=== PATIENT | female | born 1950 | race Caucasian/White ===

== ENCOUNTER → 2020-05-16 13:49 | Outpatient (BNVA) | payer MEDICARE, MEDICAID, SELFPAY | PROVIDERS: PCP Family Medicine; Visit Provider Nurse Practitioner Family | DX: M79.18 Myalgia, other site (principal); M47.816 Spondylosis without myelopathy or radiculopathy, lumbar region; R10.32 Left lower quadrant pain; G89.29 Other chronic pain | CPT/HCPCS: 99202 ==

== ENCOUNTER 2020-05-25 13:34 | Outpatient (REF) | payer MEDICARE, MEDICAID, SELFPAY ==
--- NOTE | ~2020-05-25 | MR_ITS ---
EXAMINATION: MR LUMBAR SPINE WITHOUT CONTRAST CLINICAL INFORMATION: Urinary incontinence. COMPARISON: None available. TECHNIQUE: MRI of the lumbar spine was obtained using routine sequences without contrast. FINDINGS: Left convex curvature of the lumbar spine. Otherwise, normal anatomic alignment. Advanced degenerative disc disease at L4-L5 and L5-S1. Mild degenerative disc disease at L2-L3 and L3-L4. Associated mixed Modic type discogenic endplate changes including mild Modic type I discogenic edema at L4-L5 and L5-S1. Mild marrow edema within the left greater than right facets from L3-S1 consistent with degenerative stress reaction. No additional suspicious marrow edema. The vertebral body heights are largely maintained. The conus medullaris terminates at the level of L2. The distal spinal cord is normal in appearance. No significant abnormalities of the paraspinal musculature. Limited evaluation of the intra-abdominal structures without significant abnormalities. The abdominal aorta is of normal contour and caliber. AXIAL SPINAL LEVELS: T12-L1: Normal annular contour. There is mild bilateral facet joint arthropathy. There is no neural foraminal stenosis. There is no spinal canal stenosis. L1-L2: Shallow diffuse disc bulge. There is mild to moderate bilateral facet joint arthropathy. There is no neural foraminal stenosis. There is no spinal canal stenosis. L2-L3: Mild diffuse disc bulge with superimposed left foraminal disc protrusion. There is moderate bilateral facet joint arthropathy. There is no neural foraminal stenosis. There is mild narrowing of the subarticular zones with no overt spinal canal stenosis centrally. L3-L4: Mild diffuse disc bulge with superimposed left subarticular/foraminal disc protrusion. There is moderate bilateral facet joint arthropathy. There is mild left and no right neural foraminal stenosis. There is mild narrowing of the subarticular zones with no overt spinal canal stenosis centrally. L4-L5: Moderate diffuse disc bulge eccentric to the left with posterior osseous ridging. There is moderate bilateral facet joint arthropathy. There is moderate bilateral neural foraminal stenosis. There is moderate to severe spinal canal stenosis. L5-S1: Posterior osseous ridging. There is moderate bilateral facet joint arthropathy. There is moderate to severe left and moderate right neural foraminal stenosis. There is stenosis of the left greater than right subarticular zones with no overt spinal canal stenosis centrally. MR/MR lumbar spine wo con IMPRESSION: Moderate multilevel degenerative spondyloarthropathy of the lumbar spine as described in detail above. Most notably, there is moderate to severe spinal canal stenosis at L4-L5. There is stenosis of the left greater than right subarticular zones at L5-S1. Mild narrowings of the subarticular zones at L2-L3 and L3-L4. Moderate neural foraminal stenoses at L4-L5 and L5-S1.
== END 2020-05-25 13:35 | disposition home or self-care (01) ==
LOC: HO.MRI 13:34
PROVIDERS: Visit Provider Anesthesiology
DX: M47.816 Spondylosis without myelopathy or radiculopathy, lumbar region (principal); R32 Unspecified urinary incontinence
CPT/HCPCS: 72148

== ENCOUNTER → 2020-06-06 11:27 | Outpatient (BNVA) | payer MEDICARE, MEDICAID, SELFPAY | PROVIDERS: Visit Provider Nurse Practitioner Family | DX: M79.18 Myalgia, other site (principal); M47.816 Spondylosis without myelopathy or radiculopathy, lumbar region; R10.32 Left lower quadrant pain; G89.29 Other chronic pain | CPT/HCPCS: 99212 ==

== ENCOUNTER → 2020-08-09 09:57 | Outpatient (BNVA) | payer MEDICARE, MEDICAID, SELFPAY | PROVIDERS: PCP Family Medicine; Visit Provider Nurse Practitioner Family | DX: M79.18 Myalgia, other site (principal); M47.816 Spondylosis without myelopathy or radiculopathy, lumbar region; R10.32 Left lower quadrant pain; G89.29 Other chronic pain | CPT/HCPCS: Q3014 ==

== ENCOUNTER 2021-09-02 12:02 | Emergency (ER) | payer MEDICARE, MEDICAID, SELFPAY ==
--- NOTE | ~2021-09-02 | XR_ITS ---
EXAMINATION: XR CHEST CLINICAL INFORMATION: Right-sided chest pain COMPARISON: None TECHNIQUE: AP portable view of the chest was obtained. FINDINGS: No significant abnormality is noted involving the heart, lungs, mediastinum, bony thorax or soft tissues. XR/XR chest 1V IMPRESSION: No acute disease.
[2021-09-02 12:16] VITALS: BP 120/80; BP 123/67; PULSE 74; PULSE 78; RESP 20; TEMP 36.9; O2SAT 100; O2SAT 96; BMI 29.2
--- NOTE | 2021-09-02 12:45 | ED.CHESTPAIN ---
HPI - Chest Pain General Chief Complaint: Chest Pain Stated Complaint: INTERMITTENT CP X'S MONTHS PER EMS Time Seen by Provider: 09/02/21 12:37 Source: patient Mode of arrival: ambulatory Limitations: no limitations History of Present Illness HPI narrative: 71 yold female wth pmh of myofaciscal pain, spondylosis of spine presents to the ED for intermittent chest pain for 8 months. patient states this mornng while at the sink. She had right sided jaw, neck, tinglng and right chest pain while cleaning dishes around 11:00am. patient states symptoms resolve after one minute. patient states no facial droop, slurred speech, loss of vision, paralysis of extremites, dizziness, headache, or syncope. Patient presently is asymptomatic Related Data Home Medications Medication Instructions Recorded Confirmed albuterol sulfate 90 mcg/actuation inhalation 05/16/20 08/09/20 aerosol inhaler fluticasone 500 mcg-salmeterol 50 1 ea inhalation BID 05/16/20 08/09/20 mcg/dose blistr powdr for inhalation linaclotide 290 mcg capsule 290 mcg PO DAILY 05/16/20 08/09/20 omeprazole 20 mg capsule,delayed 20 mg PO DAILY 05/16/20 08/09/20 release Allergies Allergy/AdvReac Type Severity Reaction Status Date / Time latex Allergy Severe Anaphylaxis Verified 08/09/20 09:57 diphenhydramine AdvReac Intermediate rash Verified 08/09/20 09:57 [From Benadryl] levocetirizine [From Xyzal] AdvReac Intermediate depression Verified 08/09/20 09:57 Penicillins AdvReac Intermediate rask Verified 08/09/20 09:57 Sulfa (Sulfonamide AdvReac Intermediate rash Verified 08/09/20 09:57 Antibiotics) Review of Systems Review of Systems: resolved right sided chest pain with neck and right sided jaw pain. Yes all other systems are reviewed and are negative [facility] Past Medical History Medical History (Updated 09/02/21 @ 16:53 by TONNY Person) Arthritis Asthma Diverticulitis Fibromyalgia Social History Social History Smoked in Last 30 Days: No Use of substances other than those prescribed or required for medical reasons: No Advance Directives: No Advance Directives Information Provided: Yes Physical Exam Vital Signs: Vital Signs: Last Vital Signs Temp 98.5 F 09/02/21 12:16 Pulse 79 09/02/21 15:17 Resp 16 09/02/21 15:17 BP 114/60 09/02/21 15:17 Pulse Ox 96 09/02/21 15:17 O2 Del Method 09/02/21 15:17 BMI result Body Mass Index 29.2 Const: General: cooperative, healthy appearing, comfortable, no acute distress, well developed, alert, awake and Physically active Orientation/consciousness: patient oriented x3 HEENT: Head: Yes normal to inspection, Yes No palpable skull fracture present, Yes normocephalic, Yes atraumatic and No abrasion Ears: hearing grossly normal bilaterally, external ears normal, TM's normal bilaterally, TM normal on the right, EAC's normal, mastoids normal and no periauricular adenopathy Mouth: Normal oral and palatal mucosa present, lip normal, tongue normal, Normal salivary glands and ducts present and oropharynx normal Eyes: General: appearance normal, both eyes and all related structures Neck: Neck: Yes normal visual inspection, Yes full ROM, Yes no lymphadenopathy, Yes no meningeal signs, Yes trachea midline, Yes supple, No anterior neck swelling and No tender Chest: Chest palpation & inspection: normal inspection of the chest and normal palpation of entire chest wall Resp: Effort & Inspection: normal respiratory effort and able to speak in complete sentences Auscultation: clear to auscultation bilaterally Cardio: Jugular venous distension: no JVD Heart sounds: S1 normal heart sound present and S2 normal heart sound present GI: Inspection: Yes normal to inspection and No abdominal wall ecchymosis Palpation (GI): Soft to palpation, not firm, nontender, no guarding and not rigid : General: No CVA tenderness and Yes no CVA tenderness Back/Spine/Pelvis: Back: no CVA tenderness, No CVA tenderness and No back tenderness Skin: General skin exam: no rashes or lesions noted and elasticity normal Neuro: Other: Negative facial droop. Negative slurred speech. Negative pronator drift. All extremities equal strength 5+. [id number] and rapid head movement intact. Negative Romberg. NIH score is zero General: patient oriented x3, no meningeal signs and CN's II-XI intact bilaterally Extrem: Other: lower extremities negative for swelling, pitting edema, or calf tenderness General: Yes normal to inspection and Yes full ROM Psych: Appearance: grossly normal, well kempt and not disheveled Course Course Course Narrative: NIH score 0. Patient does not have any neuro deficits. No need for head CT scan to be ordered. Patient presently asymptomatic, but due to patient stating right-sided chest pain will send D-dimer with troponin. EKG ordered. Chest x-ray ordered. Reevaluation(s) Reevaluation #1: 2 troponins negative. EKG negative STEMI. D-dimer negative. Wells score 0. BNP negative for heart failure. Chest x-ray negative for pneumonia. Patient presently symptomatic. Not suspecting any PE, heart attack, pneumonia, aortic dissection, or abdominal aortic aneurysm rupture. Patient informed to call her clinical nursing intern for earlier appointment this week. Patient is safe for discharge. COVID swab negative. no indication for head CT scan. negative for any neuro deficits. Patient asymptomatic. NIH score 0 Time: 16:50 MDM - Chest Pain MDM Narrative Medical decision making narrative: atypical chest pain Lab Data Result diagrams: 09/02/21 14:00 09/02/21 14:00 Labs: Lab Results 09/02/21 09/02/21 09/02/21 Range/Units 14:00 14:00 14:00 WBC 4.2 L (4.8-10.8) X10*3/uL RBC 4.26 (4.20-5.50) X10*6/uL Hgb 12.2 (12.0-16.0) g/dl Hct 37.3 (37.0-47.0) % MCV 87.6 (80.0-98.0) fL MCH 28.6 (27.0-33.0) pg MCHC 32.7 (31.0-35.0) g/dl RDW 13.7 (11.0-16.0) % Plt Count 296 (160-400) X10*3/uL MPV 8.8 L (9.4-12.3) fL Immature Gran % (Auto) 0.2 (0.0-0.4) % Neut % (Auto) 52.8 (45-73) % Lymph % (Auto) 35.7 (20-40) % [place] % (Auto) 9.0 (2-11) % Eos % (Auto) 1.4 (0-4) % Baso % (Auto) 0.9 (0-2) % Lymph # (Auto) 1.5 (1.2-4.9) X10*3/uL [place] # (Auto) 0.4 (0.1-1.2) X10*3/uL Eos # (Auto) 0.1 (0.0-0.4) X10*3/uL Baso # (Auto) 0.0 (0.0-0.2) X10*3/uL Abs Immat Gran (auto) 0.01 (0.00-0.03) X10*3/uL Absolute Neuts (auto) 2.2 (2.0-8.3) x10*3/uL Absolute Nucleated RBC 0.000 (0.0-0.012) X10*3/uL Nucleated RBC % (auto) 0.0 (0.0-0.2) /100WBC PT 10.9 (10.0-13.1) SEC INR 1.0 (0.9-1.1) APTT 34.2 (24.1-38.0) SEC D-Dimer High Sensitivty < 150 NG/ML Sodium 139 (135-145) mmol/L Potassium 4.6 (3.3-5.1) mmol/L Chloride 107 (96-108) mmol/L Carbon Dioxide 25 (22-29) mmol/L Anion Gap 12 (12-20) BUN 12 (9-16) mg/dL Creatinine 0.77 (0.5-1.4) mg/dL Estim Creat Clear Calc 68.3 Estimated GFR > 60 Random Glucose 93 (60-115) mg/dL Calcium 8.7 (8.4-10.2) mg/dL Magnesium 2.1 (1.6-2.6) mg/dL Total Bilirubin 0.3 (0.0-1.0) mg/dL AST 17 (5-31) U/L ALT 17 (0-31) U/L Alkaline Phosphatase 81 (39-117) U/L Troponin I High Sens (<3.5-17.0) ng/L B-Natriuretic Peptide (<100) pg/mL Total Protein 6.9 (6.5-8.0) g/dL Albumin 4.1 (3.5-5.0) g/dL COVID-19 ([facility]) (Negative) COVID-19 Clin Com 09/02/21 09/02/21 09/02/21 Range/Units 14:00 14:23 15:30 WBC (4.8-10.8) X10*3/uL RBC (4.20-5.50) X10*6/uL Hgb (12.0-16.0) g/dl Hct (37.0-47.0) % MCV (80.0-98.0) fL MCH (27.0-33.0) pg MCHC (31.0-35.0) g/dl RDW (11.0-16.0) % Plt Count (160-400) X10*3/uL MPV (9.4-12.3) fL Immature Gran % (Auto) (0.0-0.4) % Neut % (Auto) (45-73) % Lymph % (Auto) (20-40) % [place] % (Auto) (2-11) % Eos % (Auto) (0-4) % Baso % (Auto) (0-2) % Lymph # (Auto) (1.2-4.9) X10*3/uL [place] # (Auto) (0.1-1.2) X10*3/uL Eos # (Auto) (0.0-0.4) X10*3/uL Baso # (Auto) (0.0-0.2) X10*3/uL Abs Immat Gran (auto) (0.00-0.03) X10*3/uL Absolute Neuts (auto) (2.0-8.3) x10*3/uL Absolute Nucleated RBC (0.0-0.012) X10*3/uL Nucleated RBC % (auto) (0.0-0.2) /100WBC PT (10.0-13.1) SEC INR (0.9-1.1) APTT (24.1-38.0) SEC D-Dimer High Sensitivty NG/ML Sodium (135-145) mmol/L Potassium (3.3-5.1) mmol/L Chloride (96-108) mmol/L Carbon Dioxide (22-29) mmol/L Anion Gap (12-20) BUN (9-16) mg/dL Creatinine (0.5-1.4) mg/dL Estim Creat Clear Calc Estimated GFR Random Glucose (60-115) mg/dL Calcium (8.4-10.2) mg/dL Magnesium (1.6-2.6) mg/dL Total Bilirubin (0.0-1.0) mg/dL AST (5-31) U/L ALT (0-31) U/L Alkaline Phosphatase (39-117) U/L Troponin I High Sens < 3.5 < 3.5 (<3.5-17.0) ng/L B-Natriuretic Peptide 17 (<100) pg/mL Total Protein (6.5-8.0) g/dL Albumin (3.5-5.0) g/dL COVID-19 ([facility]) Negative (Negative) COVID-19 Clin Com See Note ECG Data ECG #1: Interpretation: normal sinus rhythm. Ventricular rate 72. Pr interval 144. Caris 88. QTC 435. Negative STEMI Discharge Plan Discharge Clinical Impression: Chest pain, atypical Patient Disposition: Home, Self-Care Instructions: Chest Pain (ED) Additional Instructions: return to the ED immediately worsening chest pain, facial droop, slurred speech, dizziness, headache, loss of vision, nausea, vomiting, paralysis of extremities, chest pain on inspiration, leg swelling, calf pain, coughing up blood, or any other concerning symptoms. Please contact your clinical nursing intern and PCP for earlier appointment. You will be given copy of your labs and EKG. Prescriptions: No Action Linzess 290 mcg capsule 290 mcg PO DAILY fluticasone propion-salmeterol 500-50 mcg/dose blister with device 1 ea inhalation BID albuterol sulfate 90 mcg/actuation HFA aerosol inhaler inhalation omeprazole 20 mg capsule,delayed release(DR/EC) 20 mg PO DAILY Interventions: ED Discharge Assessment Last Done: 09/02/21 17:21 Discharge Date/Time: 09/02/21 17:22 Print Language: [place] Citizen
--- NOTE | 2021-09-02 13:00 | ECG_ITS ---
Test Reason : RESOLVED RT SIDED CP Blood Pressure : / mmHG Vent. Rate : 066 BPM Atrial Rate : 066 BPM P-R Int : 184 ms QRS Dur : 080 ms QT Int : 392 ms P-R-T Axes : -30 013 034 degrees QTc Int : 410 ms Unusual P axis, possible ectopic atrial rhythm Abnormal ECG No previous ECGs available Referred By: Moy Allen Electronically Signed By:RODGER SCOTT
[2021-09-02 14:05] LABS: MANUAL DIFF FLAG NO
[2021-09-02 14:07] LABS: Basophils Percent Auto 0.9 % (0-2); Eosinophils Absolute Auto 0.1 X10*3/uL (0.0-0.4); Eosinophils Percent Auto 1.4 % (0-4); Hematocrit 37.3 % (37.0-47.0); Hemoglobin 12.2 g/dl (12.0-16.0); Imm Gran Abs Auto 0.01 X10*3/uL (0.00-0.03); Imm Gran Pct Auto 0.2 % (0.0-0.4); Lymphocytes Absolute Auto 1.5 X10*3/uL (1.2-4.9); Lymphocytes Percent Auto 35.7 % (20-40); Mean Corpuscular HGB Conc 32.7 g/dl (31.0-35.0); Mean Corpuscular Hemoglobin 28.6 pg (27.0-33.0); Mean Corpuscular Volume 87.6 fL (80.0-98.0); Mean Platelet Volume 8.8 fL (9.4-12.3); Monocytes Absolute Auto 0.4 X10*3/uL (0.1-1.2); Neutrophils Absolute Auto 2.2 x10*3/uL (2.0-8.3); Neutrophils Percent Auto 52.8 % (45-73); Platelet Count 296 X10*3/uL (160-400); Red Blood Count 4.26 X10*6/uL (4.20-5.50); Red Cell Distribution Width 13.7 % (11.0-16.0); White Blood Count 4.2 X10*3/uL (4.8-10.8)
[2021-09-02 14:12] LABS: Prothrombin Time 10.9 SEC (10.0-13.1)
[2021-09-02 14:15] LABS: Partial Thromboplastin Time 34.2 SEC (24.1-38.0)
[2021-09-02 14:16] LABS: D Dimer High Sensitivity < 150 NG/ML
[2021-09-02 14:24] LABS: Alanine Aminotransferase 17 U/L (0-31); Albumin Level 4.1 g/dL (3.5-5.0); Alkaline Phosphatase 81 U/L (39-117); Anion Gap 12 (12-20); Aspartate Amino Transferase 17 U/L (5-31); Bilirubin Total 0.3 mg/dL (0.0-1.0); Blood Urea Nitrogen 12 mg/dL (9-16); Calcium 8.7 mg/dL (8.4-10.2); Carbon Dioxide 25 mmol/L (22-29); Chloride 107 mmol/L (96-108); Creatinine Clr Calc Pharmacy 68.3; Estimated Glomerular Filt Rate > 60; Glucose Random 93 mg/dL (60-115); Magnesium 2.1 mg/dL (1.6-2.6); Potassium 4.6 mmol/L (3.3-5.1); Sodium 139 mmol/L (135-145); Total Protein 6.9 g/dL (6.5-8.0)
[2021-09-02 14:27] LABS: Troponin-I High Sensitivity < 3.5 ng/L (<3.5-17.0)
[2021-09-02 14:54] LABS: COVID-19 Test Negative (Negative); IDNOW Serial# 16C4AD1C
[2021-09-02 14:54] LABS: B Type Natriuretic Peptide 17 pg/mL (<100)
[2021-09-02 15:17] VITALS: BP 114/60; PULSE 79; RESP 16; O2SAT 96
[2021-09-02 16:11] LABS: Troponin-I High Sensitivity < 3.5 ng/L (<3.5-17.0)
== END 2021-09-02 17:22 | disposition home or self-care (01) ==
PROVIDERS: Physician Assistant; Emergency Provider Emergency Medicine Emergency Medical Services; PCP Family Medicine
DX: R07.89 Other chest pain (principal); M54.2 Cervicalgia; R51.9 Headache, unspecified; Z79.899 Other long term (current) drug therapy; Z20.822 Contact with and (suspected) exposure to COVID-19
CPT/HCPCS: 36415; 71045; 80053; 83735; 83880; 84484; 85025; 85379; 85610; 85730; 87635; 93005; 99283; 99284

== ENCOUNTER 2022-06-08 13:59 | Emergency (ER) | payer MEDICARE, MEDICAID, SELFPAY ==
--- NOTE | ~2022-06-08 | CT_ITS ---
EXAMINATION: CT ABDOMEN AND PELVIS WITHOUT CONTRAST CLINICAL INFORMATION: Abdominal pain. COMPARISON: None available. TECHNIQUE: Multidetector volumetric imaging was performed from the superior aspect of the liver through the pubic symphysis. Sagittal and coronal reformatted images were obtained on the technologist's workstation. This CT examination was performed using dose optimization techniques as appropriate, variously including the following: *Automated exposure control *Adjustment of mA and/or kV according to patient size (this includes techniques or standardized protocols for targeted exams where dose is matched to indication/reason for exam; i.e. extremities or head) *Use of iterative reconstruction technique DLP: 544.00 mGy-cm FINDINGS: LUNG BASES: Subsegmental atelectasis in the lingula and right middle lobe. Lung bases are otherwise unremarkable. No pleural or pericardial effusions. LIVER, GALLBLADDER, AND BILIARY TREE: The liver is normal in size, shape, and attenuation. No focal hepatic lesion or biliary ductal dilatation is present. The gallbladder is unremarkable with no evidence of radiopaque gallstones, gallbladder wall thickening, or obvious pericholecystic inflammatory changes. PANCREAS: Mild fatty atrophy of the pancreas. No focal pancreatic mass is noted within the limits of noncontrast study. No peripancreatic stranding or fluid. SPLEEN: Unremarkable. ADRENAL GLANDS: Unremarkable. KIDNEYS AND URETERS: The kidneys are normal in size, shape, and attenuation. No hydronephrosis, hydroureter, or calculi seen. No perinephric stranding. BLADDER: Underdistended and therefore not optimally evaluated. No radiopaque calculi are noted. GASTROINTESTINAL TRACT: Underdistended; however, grossly unremarkable. No abnormal small bowel dilatation is noted. An appendix is not seen however there are no inflammatory changes in the expected location of the appendix. Diverticulosis of the descending and sigmoid colon. Mild stranding is noted around the proximal and mid descending colon. Prominence of the vasa recta is noted here. Large stool burden is noted in the ascending, transverse and descending colon. PERITONEAL CAVITY: No evidence of free intraperitoneal air or fluid. ABDOMINAL WALL: No significant hernia is appreciated. LYMPH NODES: No abnormal lymph nodes are demonstrated in the axilla. VASCULAR: Scattered calcific atherosclerosis of the aortoiliac vessels. PELVIC VISCERA: Unremarkable CT appearance of the uterus and ovaries/adnexa. OSSEOUS STRUCTURES: No acute or suspicious osseous lesions. Severe narrowing of the disc spaces is noted at L5-S1 and L4-L5 with marginal endplate osteophytes. There is moderate bilateral neural foraminal stenosis at L5-S1 and L4-L5. [id number] osteoarthritic changes at the left hip. CT/CT abdomen pelvis wo IV con IMPRESSION: 1. Diverticulosis of the descending and sigmoid colon. Mild stranding is noted around the proximal and mid descending colon with prominence of the vas recta. Findings most likely suggestive of acute diverticulitis. No evidence of focal diverticular perforation or abscess collection. Focal colitis is in differential; however, less favored. No obvious mass lesion is noted in this region. No evidence of free intraperitoneal air or fluid. Consider colonoscopic correlation following resolution of acute episode to exclude neoplastic process in the region. 2. Large stool burden in the ascending, transverse and descending colon. 3. No evidence of radiopaque urinary tract calculi, hydroureteronephrosis or perinephric stranding. Fleischner guidelines were followed.
--- NOTE | 2022-06-08 14:36 | ED_ITS ---
HPI - General Adult General Chief complaint: GI Bleed <TONNY Foley - Last Filed: 06/08/22 14:38> Stated complaint: abd pain <TONNY Foley - Last Filed: 06/08/22 14:38> Time Seen by Provider: 06/08/22 16:08 <TONNY Foley - Last Filed: 06/08/22 14:38> Source: patient and RN notes reviewed <Grant Velasquez - Last Filed: 06/08/22 19:01> Mode of arrival: ambulatory <Grant Velasquez - Last Filed: 06/08/22 19:01> Limitations: no limitations <Grant Vleasquez - Last Filed: 06/08/22 19:01> History of Present Illness HPI narrative: 71-year-old female with past medical history significant for spondylosis, diverticulitis presents for evaluation of abdominal pain Patient reports that she has left lower abdominal cramping and bloating for the last 2 weeks. She states that 2 weeks ago she had persistent diarrhea lasted 2 days and she has felt constipated ever since then She reports her pain is 7/10 She states it does not feel consistent to her previous bouts of diverticulitis Denies any urinary complaints Denies any fevers but endorses chills. Patient also states that she has had 5 different courses of antibiotics since March, 3 months ago. She reports that she was given clindamycin and azithromycin twice each for dental infections She also reports having had a course of Macrobid for UTI in April The patient reports that she has a GI follow-up at [facility] in 2 days. She also dropped off an outpatient stool sample but does not yet have the results No other complaints or concerns at time <Grant Velasquez - Last Filed: 06/08/22 19:01> Related Data Home medications: Home Medications Medication Instructions Recorded Confirmed albuterol sulfate 90 mcg/actuation inhalation 05/16/20 08/09/20 aerosol inhaler fluticasone 500 mcg-salmeterol 50 1 ea inhalation BID 05/16/20 08/09/20 mcg/dose blistr powdr for inhalation linaclotide 290 mcg capsule 290 mcg PO DAILY 05/16/20 08/09/20 omeprazole 20 mg capsule,delayed 20 mg PO DAILY 05/16/20 08/09/20 release Previous Rx's Medication Instructions Recorded vancomycin 125 mg capsule 125 mg PO QID #40 caps 06/08/22 <TONNY Foley - Last Filed: 06/08/22 14:38> Allergies/adverse reactions: Allergies Allergy/AdvReac Type Severity Reaction Status Date / Time latex Allergy Severe Anaphylaxis Verified 06/08/22 14:36 diphenhydramine AdvReac Intermediate rash Verified 06/08/22 14:36 [From Benadryl] levocetirizine [From Xyzal] AdvReac Intermediate depression Verified 06/08/22 14:36 Penicillins AdvReac Intermediate rask Verified 06/08/22 14:36 Sulfa (Sulfonamide AdvReac Intermediate rash Verified 06/08/22 14:36 Antibiotics) <TONNY Foley - Last Filed: 06/08/22 14:38> Review of Systems Constitutional: Constitutional: Reports as per HPI, Denies chills, Denies fatigue, Denies fever(s) and Denies headache(s) <Grant Velasquez - Last Filed: 06/08/22 19:01> ENT: Denies headache(s) <Grant Velasquez - Last Filed: 06/08/22 19:01> Cardiovascular: Cardiovascular: Denies chest pain and Denies dyspnea <Grant Velasquez - Last Filed: 06/08/22 19:01> Respiratory: Respiratory: Denies cough and Denies dyspnea <Grant Velasquez - Last Filed: 06/08/22 19:01> Gastrointestinal: Gastrointestinal: Reports abdominal pain, Reports hematoc hezia, Reports constipation, Reports diarrhea, Reports nausea, Denies vomiting and Denies hematemesis <Grant Velasquez - Last Filed: 06/08/22 19:01> Genitourinary: Genitourinary: Denies dysuria <Grant Velasquez - Last Filed: 06/08/22 19:01> Neurologic: Denies headache(s) and Denies focal weakness <Grant Velasquez - Last Filed: 06/08/22 19:01> Endocrine: Endocrine: Denies fatigue <Grant Velasquez - Last Filed: 06/08/22 19:01> [facility] Past Medical History Medical History: Medical History (Updated 06/08/22 @ 19:00 by Grant Velasquez) Arthritis Asthma Diverticulitis Fibromyalgia <TONNY Foley - Last Filed: 06/08/22 14:38> Social History Social History: Social History Alcohol intake: never Smoked in Last 30 Days: No Advance Directives: No Advance Directives Information Provided: No <TONNY Foley - Last Filed: 06/08/22 14:38> Physical Exam ED Vital Signs: Vital Signs - 24 hr 06/08/22 14:37 06/08/22 15:20 Temperature 98.3 F 98.2 F Pulse Rate 85 80 Respiratory Rate 18 20 Blood Pressure 135/75 122/43 L Pulse Oximetry 97 98 Oxygen Delivery Method Room Air Room Air BMI result Body Mass Index 29.2 <TONNY Foley - Last Filed: 06/08/22 14:38> Vital Signs - 24 hr 06/08/22 14:37 06/08/22 15:20 Temperature 98.3 F 98.2 F Pulse Rate 85 80 Respiratory Rate 18 20 Blood Pressure 135/75 122/43 L Pulse Oximetry 97 98 Oxygen Delivery Method Room Air Room Air BMI result Body Mass Index 29.2 <Grant Velasquez - Last Filed: 06/08/22 19:01> Const General: healthy appearing, comfortable, no acute distress, alert and awake <Grant Velasquez - Last Filed: 06/08/22 19:01> Nutritional Appearance: well nourished <Grant Velasquez - Last Filed: 06/08/22 19:01> Orientation/consciousness: patient oriented x3 <Grant Velasquez - Last Filed: 06/08/22 19:01> HENMT Head: Yes normocephalic and Yes atraumatic <Grant Velasquez - Last Filed: 19:01> Throat: Yes posterior oropharynx normal <Grant Velasquez - Last Filed: 06/08/22 19:01> Eyes Eyelids: Yes eyelids normal <Grant Velasquez - Last Filed: 06/08/22 19:01> Conjunctivae: conjunctivae normal <Grant Velasquez - Last Filed: 06/08/22 19:01> Sclerae: sclerae normal <Grant DavisNavdeep - Last Filed: 06/08/22 19:01> Corneas: corneas normal <Grant OBig Horn - Last Filed: 06/08/22 19:01> Pupils: Equal, round and reactive pupils present <Grant ONavdeep - Last Filed: 06/08/22 19:01> EOM: EOMs intact bilaterally <Thumb ReadingBig Horn - Last Filed: 06/08/22 19:01> Neck Neck: Yes full ROM <Grant ONavdeep - Last Filed: 06/08/22 19:01> Resp Effort & Inspection: normal respiratory effort, able to speak in complete sentences, no audible wheezes and not labored <Grant O Last Filed: 06/08/22 19:01> Auscultation: clear to auscultation bilaterally <Grant Navdeep - Last Filed: 06/08/22 19:01> Cardio Rate: regular rate <Grant ONavdeep - Last Filed: 06/08/22 19:01> Rhythm: regular rhythm <Grant [place] Horn - Last Filed: 06/08/22 19:01> GI Inspection: No abdominal wall ecchymosis, Yes distended, No incision, Yes obesity and No scar <Grant ONavdeep - Last Filed: 06/08/22 19:01> Palpation (GI): Soft to palpation, not firm, Tenderness to palpation present (GI) in the LLQ and suprapubicly; Andujar's sign negative, no guarding and not rigid <Grant OBig Horn - Last Filed: 06/08/22 19:01> Auscultation: normoactive bowel sounds <Grant DemarcoBig Horn - Last Filed: 06/08/22 19:01> Skin General skin exam: no rashes or lesions noted and elasticity normal <Grant dinCloudBig Horn - Last Filed: 06/08/22 19:01> Neuro General: patient oriented x3 <Grant OBig Horn - Last Filed: 06/08/22 19:01> Cranial nerves: Yes CN's II-XII intact bilaterally, Yes Equal, round and reactive pupils present and Yes Bilaterally intact EOM present <Thumb ReadingJasiel - Last Filed: 06/08/22 19:01> Cognition (Neuro): normal cognition <Grant Velasquez - Last Filed: 06/08/22 19:01> Extrem Other: Moving all extremities well without any obvious deformities <Grant Velasquez - Last Filed: 06/08/22 19:01> Course Course Course Narrative: RME performed by Jess Oropeza PA-C. Patient is a 71 year old assigned female at presenting to the emergency department with abdominal pain. Labs, imaging, and swab ordered. Patient placed back in the waiting room pending room availability and results. <TONNY Foley - Last Filed: 06/08/22 14:38> Reevaluation(s) Reevaluation #1: Patient tested positive for C diff. I discussed this with the patient, she is nontoxic-appearing, non full minute C diff. We will treat with vancomycin 125 mg p.o. q.i.d.. The patient's CT scan also showed constipation, I cautioned the patient against using stronger laxatives while she is being treated for C diff. she may use stool softeners and fiber supplementation, but once her infection is cleared her bowel habits return to normal. <Grant Velasquez - Last Filed: 06/08/22 19:01> Time: 18:58 <Grant Velasquez - Last Filed: 06/08/22 19:01> Medications Administered Discontinued Medications Generic Name Dose Route Start Last Admin Trade Name Freq PRN Reason Stop Dose Admin Acetaminophen 975 mg 06/08/22 16:39 06/08/22 16:48 Acetaminophen 325 Mg Tablet PO 06/08/22 16:40 975 mg ONCE ONE Administration <TONNY Foley - Last Filed: 06/08/22 14:38> Medications Administered Discontinued Medications Generic Name Dose Route Start Last Admin Trade Name Freq PRN Reason Stop Dose Admin Acetaminophen 975 mg 06/08/22 16:39 06/08/22 16:48 Acetaminophen 325 Mg Tablet PO 06/08/22 16:40 975 mg ONCE ONE Administration <Grant Velasquez - Last Filed: 06/08/22 19:01> Medical Decision Making Medical Decision Making MDM Narrative: 71-year-old female with history of diverticulitis presents for evaluation of abdominal pain, diarrhea and then subsequent constipation. She has had numerous antibiotics in the last few months mobile definitely send AC diff sample and a GI panel. CT scan pending. <Grant Velasquez - Last Filed: 06/08/22 19:01> Differential Diagnosis Colitis Diverticulitis Gastroenteritis C diff Small-bowel obstruction <Grant Velasquez - Last Filed: 06/08/22 19:01> Lab Data MDM Lab Attestation statement: I reviewed the patient's lab results. <Grant Velasquez - Last Filed: 06/08/22 19:01> Mild anemia, no leukocytosis, no electrolyte abnormalities <Grant Velasquez - Last Filed: 06/08/22 19:01> Result Diagrams: 06/08/22 14:56 06/08/22 14:56 <TONNY Foley - Last Filed: 06/08/22 14:38> Labs: Lab Results 06/08/22 06/08/22 06/08/22 Range/Units 14:56 14:56 14:56 WBC 10.1 (4.8-10.8) X10*3/uL RBC 4.10 L (4.20-5.50) X10*6/uL Hgb 11.5 L (12.0-16.0) g/dl Hct 35.2 L (37.0-47.0) % MCV 85.9 (80.0-98.0) fL MCH 28.0 (27.0-33.0) pg MCHC 32.7 (31.0-35.0) g/dl RDW 13.3 (11.0-16.0) % Plt Count 346 (160-400) X10*3/uL MPV 8.5 L (9.4-12.3) fL Immature Gran % (Auto) 0.2 (0.0-0.4) % Neut % (Auto) 70.2 (45-73) % Lymph % (Auto) 21.4 (20-40) % [place] % (Auto) 6.4 (2-11) % Eos % (Auto) 1.4 (0-4) % Baso % (Auto) 0.4 (0-2) % Lymph # (Auto) 2.2 (1.2-4.9) X10*3/uL [place] # (Auto) 0.7 (0.1-1.2) X10*3/uL Eos # (Auto) 0.1 (0.0-0.4) X10*3/uL Baso # (Auto) 0.0 (0.0-0.2) X10*3/uL Abs Immat Gran (auto) 0.02 (0.00-0.03) X10*3/uL Absolute Neuts (auto) 7.1 (2.0-8.3) x10*3/uL Absolute Nucleated RBC 0.000 (0.0-0.012) X10*3/uL Nucleated RBC % (auto) 0.0 (0.0-0.2) /100WBC Sodium 140 (135-145) mmol/L Potassium 4.3 (3.3-5.1) mmol/L Chloride 106 (96-108) mmol/L Carbon Dioxide 28 (22-29) mmol/L Anion Gap 10 L (12-20) BUN 11 (9-16) mg/dL Creatinine 0.77 (0.5-1.4) mg/dL Estim Creat Clear Calc 68.3 Estimated GFR > 60 Random Glucose 94 (60-115) mg/dL Calcium 8.8 (8.4-10.2) mg/dL Magnesium 2.1 (1.6-2.6) mg/dL Total Bilirubin 0.6 (0.0-1.0) mg/dL AST 15 (5-31) U/L ALT 12 (0-31) U/L Alkaline Phosphatase 87 (39-117) U/L Total Protein 6.7 (6.5-8.0) g/dL Albumin 4.0 (3.5-5.0) g/dL Urine Color Urine Appearance Urine pH (5.0-9.0) Ur Specific [place] (1.005-1.025) Urine Protein (Neg-Trace) mg/dL Urine Glucose (UA) (Negative) mg/dL Urine Ketones (Negative) mg/dL Urine Blood (Negative) Urine Nitrite (Negative) Ur Leukocyte Esterase (Negative) C. difficile Tox B Gene (Negative) COVID-19 ([facility]) Negative (Negative) COVID-19 Clin Com See Note 06/08/22 06/08/22 Range/Units 17:27 17:27 WBC (4.8-10.8) X10*3/uL RBC (4.20-5.50) X10*6/uL Hgb (12.0-16.0) g/dl Hct (37.0-47.0) % MCV (80.0-98.0) fL MCH (27.0-33.0) pg MCHC (31.0-35.0) g/dl RDW (11.0-16.0) % Plt Count (160-400) X10*3/uL MPV (9.4-12.3) fL Immature Gran % (Auto) (0.0-0.4) % Neut % (Auto) (45-73) % Lymph % (Auto) (20-40) % [place] % (Auto) (2-11) % Eos % (Auto) (0-4) % Baso % (Auto) (0-2) % Lymph # (Auto) (1.2-4.9) X10*3/uL [place] # (Auto) (0.1-1.2) X10*3/uL Eos # (Auto) (0.0-0.4) X10*3/uL Baso # (Auto) (0.0-0.2) X10*3/uL Abs Immat Gran (auto) (0.00-0.03) X10*3/uL Absolute Neuts (auto) (2.0-8.3) x10*3/uL Absolute Nucleated RBC (0.0-0.012) X10*3/uL Nucleated RBC % (auto) (0.0-0.2) /100WBC Sodium (135-145) mmol/L Potassium (3.3-5.1) mmol/L Chloride (96-108) mmol/L Carbon Dioxide (22-29) mmol/L Anion Gap (12-20) BUN (9-16) mg/dL Creatinine (0.5-1.4) mg/dL Estim Creat Clear Calc Estimated GFR Random Glucose (60-115) mg/dL Calcium (8.4-10.2) mg/dL Magnesium (1.6-2.6) mg/dL Total Bilirubin (0.0-1.0) mg/dL AST (5-31) U/L ALT (0-31) U/L Alkaline Phosphatase (39-117) U/L Total Protein (6.5-8.0) g/dL Albumin (3.5-5.0) g/dL Urine Color Yellow Urine Appearance Clear Urine pH 5.5 (5.0-9.0) Ur Specific [place] <= 1.005 (1.005-1.025) Urine Protein Negative (Neg-Trace) mg/dL Urine Glucose (UA) Negative (Negative) mg/dL Urine Ketones Negative (Negative) mg/dL Urine Blood Negative (Negative) Urine Nitrite Negative (Negative) Ur Leukocyte Esterase Negative (Negative) C. difficile Tox B Gene POSITIVE A* (Negative) COVID-19 ([facility]) (Negative) COVID-19 Clin Com <TONNY Foley - Last Filed: 06/08/22 14:38> Lab Results 06/08/22 06/08/22 06/08/22 Range/Units 14:56 14:56 14:56 WBC 10.1 (4.8-10.8) X10*3/uL RBC 4.10 L (4.20-5.50) X10*6/uL Hgb 11.5 L (12.0-16.0) g/dl Hct 35.2 L (37.0-47.0) % MCV 85.9 (80.0-98.0) fL MCH 28.0 (27.0-33.0) pg MCHC 32.7 (31.0-35.0) g/dl RDW 13.3 (11.0-16.0) % Plt Count 346 (160-400) X10*3/uL MPV 8.5 L (9.4-12.3) fL Immature Gran % (Auto) 0.2 (0.0-0.4) % Neut % (Auto) 70.2 (45-73) % Lymph % (Auto) 21.4 (20-40) % [place] % (Auto) 6.4 (2-11) % Eos % (Auto) 1.4 (0-4) % Baso % (Auto) 0.4 (0-2) % Lymph # (Auto) 2.2 (1.2-4.9) X10*3/uL [place] # (Auto) 0.7 (0.1-1.2) X10*3/uL Eos # (Auto) 0.1 (0.0-0.4) X10*3/uL Baso # (Auto) 0.0 (0.0-0.2) X10*3/uL Abs Immat Gran (auto) 0.02 (0.00-0.03) X10*3/uL Absolute Neuts (auto) 7.1 (2.0-8.3) x10*3/uL Absolute Nucleated RBC 0.000 (0.0-0.012) X10*3/uL Nucleated RBC % (auto) 0.0 (0.0-0.2) /100WBC Sodium 140 (135-145) mmol/L Potassium 4.3 (3.3-5.1) mmol/L Chloride 106 (96-108) mmol/L Carbon Dioxide 28 (22-29) mmol/L Anion Gap 10 L (12-20) BUN 11 (9-16) mg/dL Creatinine 0.77 (0.5-1.4) mg/dL Estim Creat Clear Calc 68.3 Estimated GFR > 60 Random Glucose 94 (60-115) mg/dL Calcium 8.8 (8.4-10.2) mg/dL Magnesium 2.1 (1.6-2.6) mg/dL Total Bilirubin 0.6 (0.0-1.0) mg/dL AST 15 (5-31) U/L ALT 12 (0-31) U/L Alkaline Phosphatase 87 (39-117) U/L Total Protein 6.7 (6.5-8.0) g/dL Albumin 4.0 (3.5-5.0) g/dL Urine Color Urine Appearance Urine pH (5.0-9.0) Ur Specific [place] (1.005-1.025) Urine Protein (Neg-Trace) mg/dL Urine Glucose (UA) (Negative) mg/dL Urine Ketones (Negative) mg/dL Urine Blood (Negative) Urine Nitrite (Negative) Ur Leukocyte Esterase (Negative) C. difficile Tox B Gene (Negative) COVID-19 ([facility]) Negative (Negative) COVID-19 Clin Com See Note 06/08/22 06/08/22 Range/Units 17:27 17:27 WBC (4.8-10.8) X10*3/uL RBC (4.20-5.50) X10*6/uL Hgb (12.0-16.0) g/dl Hct (37.0-47.0) % MCV (80.0-98.0) fL MCH (27.0-33.0) pg MCHC (31.0-35.0) g/dl RDW (11.0-16.0) % Plt Count (160-400) X10*3/uL MPV (9.4-12.3) fL Immature Gran % (Auto) (0.0-0.4) % Neut % (Auto) (45-73) % Lymph % (Auto) (20-40) % [place] % (Auto) (2-11) % Eos % (Auto) (0-4) % Baso % (Auto) (0-2) % Lymph # (Auto) (1.2-4.9) X10*3/uL [place] # (Auto) (0.1-1.2) X10*3/uL Eos # (Auto) (0.0-0.4) X10*3/uL Baso # (Auto) (0.0-0.2) X10*3/uL Abs Immat Gran (auto) (0.00-0.03) X10*3/uL Absolute Neuts (auto) (2.0-8.3) x10*3/uL Absolute Nucleated RBC (0.0-0.012) X10*3/uL Nucleated RBC % (auto) (0.0-0.2) /100WBC Sodium (135-145) mmol/L Potassium (3.3-5.1) mmol/L Chloride (96-108) mmol/L Carbon Dioxide (22-29) mmol/L Anion Gap (12-20) BUN (9-16) mg/dL Creatinine (0.5-1.4) mg/dL Estim Creat Clear Calc Estimated GFR Random Glucose (60-115) mg/dL Calcium (8.4-10.2) mg/dL Magnesium (1.6-2.6) mg/dL Total Bilirubin (0.0-1.0) mg/dL AST (5-31) U/L ALT (0-31) U/L Alkaline Phosphatase (39-117) U/L Total Protein (6.5-8.0) g/dL Albumin (3.5-5.0) g/dL Urine Color Yellow Urine Appearance Clear Urine pH 5.5 (5.0-9.0) Ur Specific [place] <= 1.005 (1.005-1.025) Urine Protein Negative (Neg-Trace) mg/dL Urine Glucose (UA) Negative (Negative) mg/dL Urine Ketones Negative (Negative) mg/dL Urine Blood Negative (Negative) Urine Nitrite Negative (Negative) Ur Leukocyte Esterase Negative (Negative) C. difficile Tox B Gene POSITIVE A* (Negative) COVID-19 ([facility]) (Negative) COVID-19 Clin Com <Grant Velasquez - Last Filed: 06/08/22 19:01> Discharge Plan Discharge Clinical Impression: C. difficile colitis <TONNY Foley - Last Filed: 06/08/22 14:38> Patient Disposition: Home, Self-Care <TONNY Foley - Last Filed: 06/08/22 14:38> Instructions: C. Diff (Clostridioides Difficile) Infection (ED) <TONNY Foley - Last Filed: 06/08/22 14:38> Additional Instructions: You tested positive for C diff colitis. This is very contagious. Washing hands frequently after using the bathroom Take vancomycin 125 mg every 6 hours for 10 days Return for new or worsening symptoms You may use stool softeners, but I would be very careful about using laxatives while you have this infection Follow-up with her primary doctor <TONNY Foley - Last Filed: 06/08/22 14:38> Prescriptions: New vancomycin 125 mg capsule 125 mg PO QID Qty: 40 0RF No Action Linzess 290 mcg capsule 290 mcg PO DAILY fluticasone propion-salmeterol 500-50 mcg/dose blister with device 1 ea inhalation BID albuterol sulfate 90 mcg/actuation HFA aerosol inhaler inhalation omeprazole 20 mg capsule,delayed release(DR/EC) 20 mg PO DAILY <TONNY Foley - Last Filed: 06/08/22 14:38>
[2022-06-08 14:37] VITALS: BP 135/75; PULSE 85; RESP 18; TEMP 36.8; O2SAT 97; BMI 29.2
[2022-06-08 15:02] LABS: MANUAL DIFF FLAG NO
[2022-06-08 15:03] LABS: Basophils Percent Auto 0.4 % (0-2); Eosinophils Absolute Auto 0.1 X10*3/uL (0.0-0.4); Eosinophils Percent Auto 1.4 % (0-4); Hematocrit 35.2 % (37.0-47.0); Hemoglobin 11.5 g/dl (12.0-16.0); Imm Gran Abs Auto 0.02 X10*3/uL (0.00-0.03); Imm Gran Pct Auto 0.2 % (0.0-0.4); Lymphocytes Absolute Auto 2.2 X10*3/uL (1.2-4.9); Lymphocytes Percent Auto 21.4 % (20-40); Mean Corpuscular HGB Conc 32.7 g/dl (31.0-35.0); Mean Corpuscular Volume 85.9 fL (80.0-98.0); Mean Platelet Volume 8.5 fL (9.4-12.3); Monocytes Absolute Auto 0.7 X10*3/uL (0.1-1.2); Monocytes Percent Auto 6.4 % (2-11); Neutrophils Absolute Auto 7.1 x10*3/uL (2.0-8.3); Neutrophils Percent Auto 70.2 % (45-73); Platelet Count 346 X10*3/uL (160-400); Red Cell Distribution Width 13.3 % (11.0-16.0); White Blood Count 10.1 X10*3/uL (4.8-10.8)
[2022-06-08 15:16] LABS: COVID-19 Test Negative (Negative); IDNOW Serial# BCCEAD1C
[2022-06-08 15:20] VITALS: BP 122/43; PULSE 80; RESP 20; TEMP 36.8; O2SAT 98
--- NOTE | 2022-06-08 15:21 | PC.NURSE ---
Pt a/ox4. Comes in with complaints of abdomen pain, nausea, x2 weeks, off and on chills at home. Kye cruz reported to pt that she tested + for blood in her stool last week. Pt just finished mulitple courses of antx, having bright red blood when whipping from diarrhea 6 days ago.
[2022-06-08 15:23] LABS: Alanine Aminotransferase 12 U/L (0-31); Alkaline Phosphatase 87 U/L (39-117); Anion Gap 10 (12-20); Aspartate Amino Transferase 15 U/L (5-31); Bilirubin Total 0.6 mg/dL (0.0-1.0); Blood Urea Nitrogen 11 mg/dL (9-16); Calcium 8.8 mg/dL (8.4-10.2); Carbon Dioxide 28 mmol/L (22-29); Chloride 106 mmol/L (96-108); Creatinine Clr Calc Pharmacy 68.3; Estimated Glomerular Filt Rate > 60; Glucose Random 94 mg/dL (60-115); Magnesium 2.1 mg/dL (1.6-2.6); Potassium 4.3 mmol/L (3.3-5.1); Sodium 140 mmol/L (135-145); Total Protein 6.7 g/dL (6.5-8.0)
[2022-06-08] MEDS: Acetaminophen 325 MG TABLET 975 MG PO (16:48)
[2022-06-08 17:48] LABS: Appearance Urine Clear; Color Urine Yellow; Glucose Urine UA Negative (Negative); Leukocyte Esterase Urine Negative (Negative); Nitrite Urine Negative (Negative); PH 5.5 (5.0-9.0); Specific Gravity - Urine <= 1.005 (1.005-1.025); Urine Blood Negative (Negative); Urine Ketones Negative (Negative); Urine Protein Negative (Neg-Trace)
[2022-06-08 18:40] LABS: CDiff Gene PCR POSITIVE (Negative)
[2022-06-08 19:05] VITALS: BP 125/60; PULSE 72; RESP 17; TEMP 36.6; O2SAT 96
[2022-06-08 19:12] LABS: CDiff Toxin Positive (Negative)
[2022-06-08 19:13] LABS: CDIFF Internal ctrl Dots and bkg OK (V)
[2022-06-08] MEDS: vancomycin HCL 125 MG CAPSULE PO (19:19)
[2022-06-09 09:26] LABS: Adenovirus F 40/41 Not Detected (Not Detect.); Astrovirus Not Detected (Not Detect.); Campylobacter Not Detected (Not Detect.); Cryptosporidium Not Detected (Not Detect.); Cyclospora cayetanensis Not Detected (Not Detect.); E. coli EAEC Not Detected (Not Detect.); E. coli EPEC Not Detected (Not Detect.); E. coli ETEC Not Detected (Not Detect.); E. coli STEC Not Detected (Not Detect.); Entamoeba histolytica Not Detected (Not Detect.); Giardia lamblia Not Detected (Not Detect.); Plesiomonas shigelloides Not Detected (Not Detect.); Rotavirus A Not Detected (Not Detect.); Salmonella Not Detected (Not Detect.); Shigella sp./EIEC Not Detected (Not Detect.); Vibrio Not Detected (Not Detect.); Vibrio Cholerae Not Detected (Not Detect.); Yersinia enterocolitica Not Detected (Not Detect.)
[2022-06-09 09:27] LABS: Sapovirus Not Detected (Not Detect.)
[2022-06-09 09:29] LABS: Norovirus GI/GII Detected (Not Detect.)
== END 2022-06-08 19:36 | disposition home or self-care (01) ==
PROVIDERS: Physician Assistant; Physician Assistant Medical; Emergency Provider Emergency Medicine; PCP Family Medicine
DX: K57.30 Diverticulosis of large intestine without perforation or abscess without bleeding (principal); B96.7 Clostridium perfringens [C. perfringens] as the cause of diseases classified elsewhere; R10.32 Left lower quadrant pain; Z20.822 Contact with and (suspected) exposure to COVID-19
CPT/HCPCS: 74176; 80053; 81003; 83735; 85025; 87324; 87493; 87507; 87635; 99284

== ENCOUNTER 2022-08-19 11:06 | Outpatient (REF) | payer MEDICARE, MEDICAID, SELFPAY ==
--- NOTE | ~2022-08-19 | XR_ITS ---
EXAMINATION: XR HIP, LEFT CLINICAL INFORMATION: Hip pain. COMPARISON: CT abdomen of 06/08/2022. TECHNIQUE: AP pelvis and 2 views of the left hip. FINDINGS: There is no evidence of acute fracture or diastasis of the pelvis. Sacroiliac joints appear unremarkable. There is degenerative disc disease seen within the lumbar spine L4 through S1 with facet arthropathy. The right hip joint space is maintained. There is degenerative joint disease seen involving the left hip with prominent marginal spurring and some sclerosis involving the femoral head without destructive bony lesion identified and without femoral head collapse. No significant joint space narrowing is identified. There is a superior proximal femoral neck calcific bump which may be related to impingement syndrome. XR/XR hip LT w [id number] IMPRESSION: Lumbar spine degenerative change. Degenerative change of the left hip as described without evidence of fracture.
== END 2022-08-19 11:07 | disposition home or self-care (01) ==
LOC: HO.HOSX 11:06
PROVIDERS: Visit Provider Physician Assistant
DX: M25.552 Pain in left hip (principal)
CPT/HCPCS: 73502; 99202

== ENCOUNTER 2023-03-27 14:52 | Emergency (ER) | payer MEDICARE, MEDICAID, SELFPAY ==
--- NOTE | ~2023-03-27 | CT_ITS ---
EXAMINATION: CT ABDOMEN AND PELVIS WITH CONTRAST CLINICAL INFORMATION: Left lower quadrant pain with history of diverticulitis COMPARISON: CT abdomen and pelvis 06/08/2022. TECHNIQUE: Multidetector volumetric images were obtained from the superior aspect of the liver through the pubic symphysis following administration 85 mL of Omnipaque 350 intravenous contrast. Sagittal and coronal reformatted images were obtained on the technologist's workstation. Oral contrast: No This CT examination was performed using dose optimization techniques as appropriate, variously including the following: *Automated exposure control *Adjustment of mA and/or kV according to patient size (this includes techniques or standardized protocols for targeted exams where dose is matched to indication/reason for exam; i.e. extremities or head) *Use of iterative reconstruction technique DLP: 389 mGy-cm FINDINGS: LUNG BASES: There is platelike atelectasis of the lingula and right middle lobe. There is no finding of 2 mm nodule right middle lobe axial image /. LIVER, GALLBLADDER, AND BILIARY TREE: The liver is normal in size, shape, and diffuse hypoattenuation. No focal hepatic lesion or biliary ductal dilatation is present. The gallbladder is unremarkable with no evidence of radiopaque gallstones, gallbladder wall thickening, or obvious pericholecystic inflammatory changes. PANCREAS: Unremarkable. SPLEEN: Unremarkable. ADRENAL GLANDS: Unremarkable. KIDNEYS AND URETERS: The kidneys are normal in size, shape, and attenuation. No hydronephrosis, hydroureter, or calculi seen. No perinephric stranding. BLADDER: Unremarkable. GASTROINTESTINAL TRACT: There is scattered stool, diverticuli and gas seen throughout the colon without any significant distention. The small bowel loops are normal caliber. Appendix is normal caliber. No inflammatory changes seen in the abdomen or pelvis. No free air or free fluid. ABDOMINAL WALL: A small umbilical hernia containing fat is noted. LYMPH NODES: Normal. VASCULAR: Atherosclerotic calcification of abdominal aorta. No aneurysmal dilatation seen. PELVIC VISCERA: The uterus is anteverted and appears unremarkable. There is no adnexal mass or free fluid. OSSEOUS STRUCTURES: There is mild degenerative disc changes L4-L5 and L5/S1 disc levels with mild ventral spondylosis. No aggressive lytic or sclerotic process seen. CT/CT abdomen pelvis w IV con IMPRESSION: 1. No acute intra-abdominal process seen. 2. Scattered colonic diverticulosis without diverticulitis. Mild constipation. 3. Diffuse hepatic steatosis without focal lesion. Fleischner guidelines were followed.
[2023-03-27 15:01] VITALS: BP 152/69; PULSE 83; RESP 20; TEMP 37.1; O2SAT 96; BMI 29.2
--- NOTE | 2023-03-27 15:01 | ED_ITS ---
HPI - General Adult General Chief complaint: Abdominal Pain Stated complaint: abd pain l side Time Seen by Provider: 03/27/23 21:54 Source: patient Mode of arrival: ambulatory Limitations: no limitations History of Present Illness HPI narrative: Patient comes in the emergency room complaining of abdominal pain, constipation. Patient states that she has history of C diff and she had similar symptoms including constipation and the same pain she is feeling. Patient denies diarrhea, no vomiting or diarrhea. The only difference is that this time she has not on any antibiotics. The last time that she got a C diff infection, she was being treated with clindamycin for the dental infection. Patient recently got treated with Macrobid for a UTI. Related Data Home Medications Medication Instructions Recorded Confirmed albuterol sulfate 90 mcg/actuation inhalation 05/16/20 08/09/20 aerosol inhaler fluticasone 500 mcg-salmeterol 50 1 ea inhalation BID 05/16/20 08/09/20 mcg/dose blistr powdr for inhalation linaclotide 290 mcg capsule 290 mcg PO DAILY 05/16/20 08/09/20 omeprazole 20 mg capsule,delayed 20 mg PO DAILY 05/16/20 08/09/20 release Previous Rx's Medication Instructions Recorded vancomycin 125 mg capsule 125 mg PO QID #40 caps 06/08/22 polyethylene glycol 3350 17 17 g PO BID #238 grams 03/28/23 gram/dose oral powder (Miralax) sodium phosphates 19 gram-7 118 ml ME DAILY PRN constipation 3 03/28/23 gram/118 mL enema (Fleet Enema) days #532 mL Allergies Allergy/AdvReac Type Severity Reaction Status Date / Time latex Allergy Severe Anaphylaxis Verified 03/27/23 15:04 diphenhydramine AdvReac Intermediate rash Verified 03/27/23 15:04 [From Benadryl] levocetirizine [From Xyzal] AdvReac Intermediate depression Verified 03/27/23 15:04 Penicillins AdvReac Intermediate rask Verified 03/27/23 15:04 Sulfa (Sulfonamide AdvReac Intermediate rash Verified 03/27/23 15:04 Antibiotics) Review of Systems 2 Review of Systems: Constitutional : No Weight loss, No Fever, No Chills, No Night Sweats, No Fatigue, No Malaise ENT/Mouth : No Hearing loss, No Ear Pain, No Nasal Congestion, No Sinus Pain, No Hoarseness, No sore throat, No Rhinorrhea, No Swallowing Difficulty Eyes: No Eye Pain, No Swelling, No Redness, No Foreign Body, No Discharge, No Vision Changes Cardiovascular : No Chest Pain, No SOB, No Dyspnea on Exertion, No Orthopnea, No Edema, No Palpitations Respiratory : No Cough, No Sputum, No Wheezing, No Smoke Exposure, No Dyspnea Gastrointestinal : No Nausea, No Vomiting, No Diarrhea, complaining of chronic constipation and abdominal distension Genitourinary : no irregular bleeding, No Dysuria, No Urinary Frequency, No Hematuria, No Urinary Incontinence, No Urgency, No Flank Pain, No Urinary Flow Changes, No Hesitancy Musculoskeletal : No joint pain, No Myalgias, No Joint Swelling Skin : No Skin Lesions, No rash Neuro : No Weakness, No Numbness, No Paresthesias, No Loss of Consciousness, No Dizziness, No Headache Psych : No Anxiety/Panic, No Depression, No SI/HI/AH/VH, No Social Issues, Heme/Lymph: No Bruising, No Bleeding,No Lymphadenopathy Endocrine : No Polyuria, No Polydipsia, No Temperature Intolerance [facility] Past Medical History Medical History Diverticulitis Arthritis Fibromyalgia Asthma Social History Social History (Updated 08/19/22 @ 11:29 by TRACY Winter) Alcohol intake: never Smoked in Last 30 Days: No Use of substances other than those prescribed or required for medical reasons: No Advance Directives: No Advance Directives Information Provided: No 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 Oriented X3. No acute distress. Eyes: Pupils equal, round and reactive to light. ENT: Pharynx normal. Neck: Normal inspection. Neck supple. No lymph nodes noted. No crepitus CVS: Normal heart rate and rhythm. Pulses normal. Normal S1 and S2 Respiratory: No respiratory distress. Breath sounds normal. No Wheezing. No rales Abdomen: Soft and nontender. No rigidity. No distention. Fullness to palpation on the left upper quadrant Skin: Skin warm and dry. Normal skin color. Normal skin turgor. Extremities: No lower extremity edema. No Lacerations. No Rash Neuro: Oriented X 3. No motor deficit. No sensory deficit. Moving all extremities. No slurred speech. CN 2 through 12 grossly intact Psych: calm, cooperative, normal affect Course Course Course Narrative: This is an RME: Additional HPI, ROS, PE not included below will be deferred to primary provider. 72-year-old female with past medical history significant for spondylosis, diverticulitis presents for evaluation of chills, nausea, headache. Recently tx for UTI placed on nitrofurantoin last week. Had loose bowels last week. Had c dif last year, sxs feel similar. Plan: Labs, UA, CT abd/pelvis w IV contrast Medications Administered Discontinued Medications Generic Name Dose Route Start Last Admin Trade Name Freq PRN Reason Stop Dose Admin Iohexol 100 ml 03/27/23 22:29 03/27/23 22:29 Iohexol 350 Mg/Ml 100 Ml Infus..Btl IV 03/27/23 22:30 85 ml ONCE ONE Administration Medical Decision Making Medical Decision Making [facility] Narrative: -my interpretation of labs: Normal hematology, unremarkable chemistry, C diff toxin B gene negative -my interpretation of CT scan of the abdomen and pelvis: Diverticulosis without diverticulitis, very large amount of stool throughout the colon -I discussed the results with the patient, patient ready for discharge. Differential Diagnosis Differential Diagnoses: The differential diagnosis associated with the presentation includes (Diverticulitis, small-bowel obstruction, C diff) Admission/Observation Consideration of admission/observation: Escalation of care including admission/observation considered (During patient's symptoms and presentation, admission was considered) Lab Data [facility] Lab Attestation statement: I reviewed the patient's lab results. 03/27/23 16:00 03/27/23 16:00 Labs: Lab Results 03/27/23 03/27/23 03/27/23 Range/Units 15:57 16:00 23:37 WBC 8.6 (4.8-10.8) X10*3/uL RBC 4.42 (4.20-5.50) X10*6/uL Hgb 12.4 (12.0-16.0) g/dl Hct 37.8 (37.0-47.0) % MCV 85.5 (80.0-98.0) fL MCH 28.1 (27.0-33.0) pg MCHC 32.8 (31.0-35.0) g/dl RDW 13.4 (11.0-16.0) % Plt Count 327 (160-400) X10*3/uL MPV 8.7 L (9.4-12.3) fL Immature Gran % (Auto) 0.2 (0.0-0.4) % Neut % (Auto) 68.4 (45-73) % Lymph % (Auto) 22.3 (20-40) % [place] % (Auto) 6.5 (2-11) % Eos % (Auto) 2.1 (0-4) % Baso % (Auto) 0.5 (0-2) % Lymph # (Auto) 1.9 (1.2-4.9) X10*3/uL [place] # (Auto) 0.6 (0.1-1.2) X10*3/uL Eos # (Auto) 0.2 (0.0-0.4) X10*3/uL Baso # (Auto) 0.0 (0.0-0.2) X10*3/uL Abs Immat Gran (auto) 0.02 (0.00-0.03) X10*3/uL Absolute Neuts (auto) 5.8 (2.0-8.3) x10*3/uL Absolute Nucleated RBC 0.000 (0.0-0.012) X10*3/uL Nucleated RBC % (auto) 0.0 (0.0-0.2) /100WBC Sodium 139 (135-145) mmol/L Potassium 4.1 (3.3-5.1) mmol/L Chloride 102 (96-108) mmol/L Carbon Dioxide 25 (22-29) mmol/L Anion Gap 16 (12-20) BUN 16 (9-16) mg/dL Creatinine 0.77 (0.5-1.4) mg/dL Estim Creat Clear Calc 67.3 Estimated GFR > 60 Random Glucose 87 (60-115) mg/dL Calcium 9.8 D (8.4-10.2) mg/dL Magnesium 2.1 (1.6-2.6) mg/dL Total Bilirubin 0.4 (0.0-1.0) mg/dL Direct Bilirubin 0.1 (0.0-0.5) mg/dL AST 18 (5-31) U/L ALT 18 (0-31) U/L Alkaline Phosphatase 94 (39-117) U/L Total Protein 8.0 (6.5-8.0) g/dL Albumin 4.4 (3.5-5.0) g/dL Lipase 40 (8-78) U/L Urine Color Yellow Urine Appearance Clear Urine pH 6.0 (5.0-9.0) Ur Specific [place] 1.010 (1.005-1.025) Urine Protein Negative (Neg-Trace) mg/dL Urine Glucose (UA) Negative (Negative) mg/dL Urine Ketones Negative (Negative) mg/dL Urine Blood Negative (Negative) Urine Nitrite Negative (Negative) Ur Leukocyte Esterase Negative (Negative) C. difficile Tox B Gene NEGATIVE (Negative) COVID-19 (SOLIS) Negative (Negative) COVID-19 Clin Com See Note Influenza Type A (BILL) Negative (Negative) Influenza Type B (BILL) Negative (Negative) Influenza A & B Note See Note Independent Interpretation I performed an independent interpretation of an: CT Scan Radiology Impression Discussion of test interpretation with radiology: I have reviewed the radiologist's reading. Radiologist Impression: FINDINGS: LUNG BASES: There is platelike atelectasis of the lingula and right middle lobe. There is no finding of 2 mm nodule right middle lobe axial image 1/5. LIVER, GALLBLADDER, AND BILIARY TREE: The liver is normal in size, shape, and diffuse hypoattenuation. No focal hepatic lesion or biliary ductal dilatation is present. The gallbladder is unremarkable with no evidence of radiopaque gallstones, gallbladder wall thickening, or obvious pericholecystic inflammatory changes. PANCREAS: Unremarkable. SPLEEN: Unremarkable. ADRENAL GLANDS: Unremarkable. KIDNEYS AND URETERS: The kidneys are normal in size, shape, and attenuation. No hydronephrosis, hydroureter, or calculi seen. No perinephric stranding. BLADDER: Unremarkable. GASTROINTESTINAL TRACT: There is scattered stool, diverticuli and gas seen throughout the colon without any significant distention. The small bowel loops are normal caliber. Appendix is normal caliber. No inflammatory changes seen in the abdomen or pelvis. No free air or free fluid. ABDOMINAL WALL: A small umbilical hernia containing fat is noted. LYMPH NODES: Normal. VASCULAR: Atherosclerotic calcification of abdominal aorta. No aneurysmal dilatation seen. PELVIC VISCERA: The uterus is anteverted and appears unremarkable. There is no adnexal mass or free fluid. OSSEOUS STRUCTURES: There is mild degenerative disc changes L4-L5 and L5/S1 disc levels with mild ventral spondylosis. No aggressive lytic or sclerotic process seen. CT/CT abdomen pelvis w IV con IMPRESSION: 1. No acute intra-abdominal process seen. 2. Scattered colonic diverticulosis without diverticulitis. Mild constipation. 3. Diffuse hepatic steatosis without focal lesion. Independent Historian Clinical information obtained from an independent historian. History obtained from or confirmed by: Other (Daughter) External Record Review External record reviewed: Prior outpatient labs Critical Care Time Critical Care Time Critical Care Time: Yes Total Critical Care Time: 60 Attestation: I have personally provided critical care time. Time includes review of lab data, radiology results, discussion with consultants, and monitoring for potential decompensation. Intervention performed as documented. Discharge Plan Discharge Clinical Impression: Abdominal pain, Chronic constipation Patient Disposition: Home, Self-Care Instructions: Constipation (ED), Abdominal Pain (ED) Additional Instructions: Please follow-up with your primary care physician tomorrow. If you have any worsening or new symptoms, please return to the emergency room or call 911 Prescriptions: New polyethylene glycol 3350 [Miralax] 17 gram/dose powder 17 g PO BID Qty: 238 1RF Fleet Enema 19-7 gram/118 mL enema 118 ml ME DAILY PRN (Reason: constipation) 3 Days Qty: 532 0RF No Action vancomycin 125 mg capsule 125 mg PO QID Qty: 40 0RF Linzess 290 mcg capsule 290 mcg PO DAILY fluticasone propion-salmeterol 500-50 mcg/dose blister with device 1 ea inhalation BID albuterol sulfate 90 mcg/actuation HFA aerosol inhaler inhalation omeprazole 20 mg capsule,delayed release(DR/EC) 20 mg PO DAILY
[2023-03-27 16:07] LABS: MANUAL DIFF FLAG NO
[2023-03-27 16:10] LABS: Basophils Percent Auto 0.5 % (0-2); Eosinophils Absolute Auto 0.2 X10*3/uL (0.0-0.4); Eosinophils Percent Auto 2.1 % (0-4); Hematocrit 37.8 % (37.0-47.0); Hemoglobin 12.4 g/dl (12.0-16.0); Imm Gran Abs Auto 0.02 X10*3/uL (0.00-0.03); Imm Gran Pct Auto 0.2 % (0.0-0.4); Lymphocytes Absolute Auto 1.9 X10*3/uL (1.2-4.9); Lymphocytes Percent Auto 22.3 % (20-40); Mean Corpuscular HGB Conc 32.8 g/dl (31.0-35.0); Mean Corpuscular Hemoglobin 28.1 pg (27.0-33.0); Mean Corpuscular Volume 85.5 fL (80.0-98.0); Mean Platelet Volume 8.7 fL (9.4-12.3); Monocytes Absolute Auto 0.6 X10*3/uL (0.1-1.2); Monocytes Percent Auto 6.5 % (2-11); Neutrophils Absolute Auto 5.8 x10*3/uL (2.0-8.3); Neutrophils Percent Auto 68.4 % (45-73); Platelet Count 327 X10*3/uL (160-400); Red Blood Count 4.42 X10*6/uL (4.20-5.50); Red Cell Distribution Width 13.4 % (11.0-16.0); White Blood Count 8.6 X10*3/uL (4.8-10.8)
[2023-03-27 16:10] LABS: Appearance Urine Clear; Color Urine Yellow; Glucose Urine UA Negative (Negative); Leukocyte Esterase Urine Negative (Negative); Nitrite Urine Negative (Negative); Urine Blood Negative (Negative); Urine Ketones Negative (Negative); Urine Protein Negative (Neg-Trace)
[2023-03-27 16:25] LABS: Alanine Aminotransferase 18 U/L (0-31); Albumin Level 4.4 g/dL (3.5-5.0); Alkaline Phosphatase 94 U/L (39-117); Anion Gap 16 (12-20); Aspartate Amino Transferase 18 U/L (5-31); Bilirubin Direct 0.1 mg/dL (0.0-0.5); Bilirubin Total 0.4 mg/dL (0.0-1.0); Blood Urea Nitrogen 16 mg/dL (9-16); Calcium 9.8 mg/dL (8.4-10.2); Carbon Dioxide 25 mmol/L (22-29); Chloride 102 mmol/L (96-108); Creatinine Clr Calc Pharmacy 67.3; Estimated Glomerular Filt Rate > 60; Glucose Random 87 mg/dL (60-115); Lipase 40 U/L (8-78); Magnesium 2.1 mg/dL (1.6-2.6); Potassium 4.1 mmol/L (3.3-5.1); Sodium 139 mmol/L (135-145)
[2023-03-27 16:37] LABS: COVID-19 Test Negative (Negative); IDNOW Serial# 08D9AD1C
[2023-03-27 16:38] LABS: IDNOW Serial# 152EDE1D; Influenza A Negative (Negative); Influenza B2 Negative (Negative)
[2023-03-27 21:16] VITALS: BP 117/62; PULSE 82; RESP 19; TEMP 36.6; O2SAT 98
[2023-03-27] MEDS: iohexoL 350 MG/ML 100 ML INFUS..BTL IV (22:29)
[2023-03-28 00:32] LABS: CDiff Gene PCR NEGATIVE (Negative)
[2023-03-28 01:20] VITALS: BP 131/77; PULSE 78; RESP 20; TEMP 36.9; O2SAT 97
[2023-03-28 09:52] LABS: Adenovirus F 40/41 Not Detected (Not Detect.); Astrovirus Not Detected (Not Detect.); Campylobacter Not Detected (Not Detect.); Cryptosporidium Not Detected (Not Detect.); Cyclospora cayetanensis Not Detected (Not Detect.); E. coli EAEC Not Detected (Not Detect.); E. coli EPEC Not Detected (Not Detect.); E. coli ETEC Not Detected (Not Detect.); E. coli STEC Not Detected (Not Detect.); Entamoeba histolytica Not Detected (Not Detect.); Giardia lamblia Not Detected (Not Detect.); Norovirus GI/GII Not Detected (Not Detect.); Plesiomonas shigelloides Not Detected (Not Detect.); Rotavirus A Not Detected (Not Detect.); Salmonella Not Detected (Not Detect.); Sapovirus Not Detected (Not Detect.); Shigella sp./EIEC Not Detected (Not Detect.); Vibrio Not Detected (Not Detect.); Vibrio Cholerae Not Detected (Not Detect.); Yersinia enterocolitica Not Detected (Not Detect.)
== END 2023-03-28 01:24 | disposition home or self-care (01) ==
PROVIDERS: Physician Assistant Medical; Emergency Provider Emergency Medicine; PCP Family Medicine
DX: R10.9 Unspecified abdominal pain (principal); K59.00 Constipation, unspecified; Z79.899 Other long term (current) drug therapy; Z11.52 Encounter for screening for COVID-19
CPT/HCPCS: 74177; 80048; 80076; 81003; 83690; 83735; 85025; 87177; 87209; 87493; 87502; 87507; 87635; 99284; Q9967

== ENCOUNTER 2024-02-07 01:55 | Inpatient (IN) | payer MEDICARE, MEDICAID, SELFPAY ==
[2024-02-07] VITALS (10 sets, daily range): BP systolic 96–134; BP diastolic 47–64; PULSE 76–91; RESP 15–20; TEMP 36.2–37.1; O2SAT 93–95; BMI 29.2
[2024-02-07 02:12] LABS: MANUAL DIFF FLAG NO
[2024-02-07 02:13] LABS: Basophils Percent Auto 0.5 % (0-2); Eosinophils Absolute Auto 0.1 X10*3/uL (0.0-0.4); Eosinophils Percent Auto 1.1 % (0-4); Hematocrit 31.3 % (37.0-47.0); Hemoglobin 10.4 g/dl (12.0-16.0); Imm Gran Abs Auto 0.01 X10*3/uL (0.00-0.03); Imm Gran Pct Auto 0.2 % (0.0-0.4); Lymphocytes Absolute Auto 1.7 X10*3/uL (1.2-4.9); Lymphocytes Percent Auto 26.3 % (20-40); Mean Corpuscular HGB Conc 33.2 g/dl (31.0-35.0); Mean Corpuscular Hemoglobin 28.3 pg (27.0-33.0); Mean Corpuscular Volume 85.1 fL (80.0-98.0); Mean Platelet Volume 8.3 fL (9.4-12.3); Monocytes Absolute Auto 0.8 X10*3/uL (0.1-1.2); Monocytes Percent Auto 12.2 % (2-11); Neutrophils Absolute Auto 3.9 x10*3/uL (2.0-8.3); Neutrophils Percent Auto 59.7 % (45-73); Platelet Count 294 X10*3/uL (160-400); Red Blood Count 3.68 X10*6/uL (4.20-5.50); Red Cell Distribution Width 13.6 % (11.0-16.0); White Blood Count 6.6 X10*3/uL (4.8-10.8)
--- NOTE | 2024-02-07 02:26 | ED_ITS ---
HPI - Nausea/Vomiting/Diarrhea General Chief complaint: Nausea/Vomiting/Diarrhea Stated complaint: Nauseous, diarrhea Time Seen by Provider: 02/07/24 02:23 Source: patient Mode of arrival: ambulatory Limitations: no limitations History of Present Illness ED Provider: HPI Narrative: Patient complaining nausea vomiting diarrhea for last 3 days history of C diff in 2022 no fever no chills no recent use of antibiotics received 3 doses of antibiotics before surgery on 01/12/24 had C diff in [id number] when she used clindamycin does have severe nausea and multiple episodes of diarrhea apparently patient has had chicken salad sandwich 4 days ago since then symptoms started Related Data Home Medications ?Medication ?Instructions ?Recorded ?Confirmed albuterol sulfate 90 mcg/actuation inhalation 05/16/20 08/09/20 aerosol inhaler fluticasone 500 mcg-salmeterol 50 1 ea inhalation BID 05/16/20 08/09/20 mcg/dose blistr powdr for inhalation linaclotide 290 mcg capsule 290 mcg PO DAILY 05/16/20 08/09/20 omeprazole 20 mg capsule,delayed 20 mg PO DAILY 05/16/20 08/09/20 release Previous Rx's ?Medication ?Instructions ?Recorded vancomycin 125 mg capsule 125 mg PO QID #40 caps 06/08/22 polyethylene glycol 3350 17 17 g PO BID #238 grams 03/28/23 gram/dose oral powder (Miralax) sodium phosphates 19 gram-7 118 ml OR DAILY PRN constipation 3 03/28/23 gram/118 mL enema (Fleet Enema) days #532 mL dicyclomine 20 mg tablet 20 mg PO TID #20 tabs 02/07/24 ondansetron 4 mg disintegrating 4 mg PO Q6-8H PRN nausea and 02/07/24 tablet vomiting #7 tabs Allergies Allergy/AdvReac Type Severity Reaction Status Date / Time latex Allergy Severe Anaphylaxis Verified 02/07/24 01:59 diphenhydramine AdvReac Intermediate rash Verified 02/07/24 01:59 [From Benadryl] levocetirizine [From Xyzal] AdvReac Intermediate depression Verified 02/07/24 01:59 Penicillins AdvReac Intermediate rask Verified 02/07/24 01:59 Sulfa (Sulfonamide AdvReac Intermediate rash Verified 02/07/24 01:59 Antibiotics) Review of Systems 2 Review of Systems: Yes all other systems are reviewed and are negative [facility] Past Medical History Medical History Diverticulitis Arthritis Fibromyalgia Asthma Social History Social History Alcohol intake: never Smoked in Last 30 Days: No Use of substances other than those prescribed or required for medical reasons: No Advance Directives: No Advance Directives Information Provided: Yes Do you have a plan to hurt others: No 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 Oriented X3. No acute distress. Eyes: PERRLA, No Nystagmus ENT: Pharynx normal. Oral Mucosa moist Neck: Normal inspection. Neck supple. CVS: Normal heart rate and rhythm. Pulses normal. Respiratory: No respiratory distress. Equal air entry bilateral, no wheezing/rales/rhonchi Abdomen: Soft and nontender. Bowel sounds are present, no mass palpable, no CVA tenderness Skin: Skin warm and dry. Normal skin color. Normal skin turgor. Extremities: No lower extremity edema. No calf tenderness Neuro: Oriented X 3. No motor deficit. No sensory deficit.No cerebellar signs , cranial nerves II-XII intact Medications Administered Generic Name Dose Route Start Last Admin Trade Name Freq PRN Reason Stop Dose Admin Sodium Chloride 1,000 mls @ 999 mls/hr 02/07/24 06:45 02/07/24 06:53 Ns IV 02/07/24 07:45 999 mls/hr .Q1H1M ONE Administration Discontinued Medications Generic Name Dose Route Start Last Admin Trade Name Freq PRN Reason Stop Dose Admin Dicyclomine HCl 20 mg 02/07/24 05:22 02/07/24 05:28 Dicyclomine Hcl 10 Mg Capsule PO 02/07/24 05:23 20 mg ONCE ONE Administration Sodium Chloride 1,000 mls @ 999 mls/hr 02/07/24 03:37 02/07/24 05:14 Ns IV 02/07/24 04:37 Infused .Q1H1M ONE Infusion Metoclopramide HCl 10 mg 02/07/24 06:45 02/07/24 06:53 Metoclopramide Hcl 10 Mg/2 Ml Vial IVPUSH 02/07/24 06:46 10 mg ONCE ONE Administration Morphine Sulfate 4 mg 02/07/24 06:45 02/07/24 06:53 Morphine Sulfate 4 Mg/Ml Cartridge IVPUSH 02/07/24 06:46 4 mg ONCE ONE Administration Protocol Ondansetron HCl 4 mg 02/07/24 04:42 02/07/24 04:47 Ondansetron Hcl 4 Mg/2 Ml Vial IVPUSH 02/07/24 04:43 4 mg ONCE ONE Administration Medical Decision Making Medical Decision Making [facility] Narrative: Patient with gastroenteritis likely from Clostridium perfringens after eating chicken salad sandwich 4 days ago. C diff is negative patient has received IV fluids discharge patient home once gets better Differential Diagnosis Differential Diagnoses: The differential diagnosis associated with the presentation includes Colitis/C diff infectious/gastroenteritis/food poisoning Admission/Observation Consideration of admission/observation: Escalation of care including admission/observation considered Lab Data [facility] Lab Attestation statement: I reviewed the patient's lab results. 02/07/24 02:07 02/07/24 02:07 Labs: Lab Results 02/07/24 02/07/24 02/07/24 Range/Units 02:07 03:14 05:40 WBC 6.6 (4.8-10.8) X10*3/uL RBC 3.68 L (4.20-5.50) X10*6/uL Hgb 10.4 L (12.0-16.0) g/dl Hct 31.3 L (37.0-47.0) % MCV 85.1 (80.0-98.0) fL MCH 28.3 (27.0-33.0) pg MCHC 33.2 (31.0-35.0) g/dl RDW 13.6 (11.0-16.0) % Plt Count 294 (160-400) X10*3/uL MPV 8.3 L (9.4-12.3) fL Immature Gran % (Auto) 0.2 (0.0-0.4) % Neut % (Auto) 59.7 (45-73) % Lymph % (Auto) 26.3 (20-40) % [place] % (Auto) 12.2 H (2-11) % Eos % (Auto) 1.1 (0-4) % Baso % (Auto) 0.5 (0-2) % Lymph # (Auto) 1.7 (1.2-4.9) X10*3/uL [place] # (Auto) 0.8 (0.1-1.2) X10*3/uL Eos # (Auto) 0.1 (0.0-0.4) X10*3/uL Baso # (Auto) 0.0 (0.0-0.2) X10*3/uL Abs Immat Gran (auto) 0.01 (0.00-0.03) X10*3/uL Absolute Neuts (auto) 3.9 (2.0-8.3) x10*3/uL Absolute Nucleated RBC 0.000 (0.0-0.012) X10*3/uL Nucleated RBC % (auto) 0.0 (0.0-0.2) /100WBC Sodium 137 (135-145) mmol/L Potassium 4.0 (3.3-5.1) mmol/L Chloride 101 (96-108) mmol/L Carbon Dioxide 25 (22-29) mmol/L Anion Gap 15 (12-20) BUN 11 (9-16) mg/dL Creatinine 0.93 (0.5-1.4) mg/dL Estim Creat Clear Calc 54.9 Estimated GFR 59 Random Glucose 107 (60-115) mg/dL Calcium 9.4 (8.4-10.2) mg/dL Total Bilirubin 0.4 (0.0-1.0) mg/dL Direct Bilirubin 0.2 (0.0-0.5) mg/dL AST 24 (5-31) U/L ALT 15 (0-31) U/L Alkaline Phosphatase 86 (39-117) U/L Total Protein 7.1 (6.5-8.0) g/dL Albumin 3.8 (3.5-5.0) g/dL Lipase 30 (8-78) U/L Urine Color Yellow Urine Appearance Clear Urine pH 5.5 (5.0-9.0) Ur Specific [place] <= 1.005 (1.005-1.025) Urine Protein Negative (Neg-Trace) mg/dL Urine Glucose (UA) Negative (Negative) mg/dL Urine Ketones Trace (Negative) mg/dL Urine Blood Negative (Negative) Urine Nitrite Negative (Negative) Ur Leukocyte Esterase Trace H (Negative) Urine RBC 0-2 (0-2) /HPF Urine WBC 0-5 (0-5) /HPF Ur Squamous Epith Cells 3-5 (0-2) /HPF Urine Bacteria None Seen (None Seen) Hyaline Casts 0-2 (0-2) /LPF C. difficile Tox B Gene NEGATIVE (Negative) Discharge Plan Discharge Clinical Impression: Gastroenteritis Patient Disposition: Home, Self-Care Instructions: Gastroenteritis (ED) Additional Instructions: Drink plenty of fluids Likely have food poisoning from Clostridium perfringens Take medication for nausea and abdominal spasm as prescribed Report to the ER if not better Prescriptions: New dicyclomine 20 mg tablet 20 mg PO TID Qty: 20 0RF ondansetron 4 mg tablet,disintegrating 4 mg PO Q6-8H PRN (Reason: nausea and vomiting) Qty: 7 0RF No Action vancomycin 125 mg capsule 125 mg PO QID Qty: 40 0RF polyethylene glycol 3350 [Miralax] 17 gram/dose powder 17 g PO BID Qty: 238 1RF Fleet Enema 19-7 gram/118 mL enema 118 ml OR DAILY PRN (Reason: constipation) 3 Days Qty: 532 0RF Linzess 290 mcg capsule 290 mcg PO DAILY fluticasone propion-salmeterol 500-50 mcg/dose blister with device 1 ea inhalation BID albuterol sulfate 90 mcg/actuation HFA aerosol inhaler inhalation omeprazole 20 mg capsule,delayed release(DR/EC) 20 mg PO DAILY Print Language: Slovak
[2024-02-07 02:38] LABS: Albumin Level 3.8 g/dL (3.5-5.0); Anion Gap 15 (12-20); Aspartate Amino Transferase 24 U/L (5-31); Bilirubin Direct 0.2 mg/dL (0.0-0.5); Bilirubin Total 0.4 mg/dL (0.0-1.0); Blood Urea Nitrogen 11 mg/dL (9-16); Calcium 9.4 mg/dL (8.4-10.2); Carbon Dioxide 25 mmol/L (22-29); Chloride 101 mmol/L (96-108); Creatinine Clr Calc Pharmacy 54.9; Estimated Glomerular Filt Rate 59; Glucose Random 107 mg/dL (60-115); Lipase 30 U/L (8-78); Sodium 137 mmol/L (135-145); Total Protein 7.1 g/dL (6.5-8.0)
[2024-02-07 02:42] LABS: Alanine Aminotransferase 15 U/L (0-31); Alkaline Phosphatase 86 U/L (39-117)
[2024-02-07] MEDS: 0.9 % Sodium Chloride 1,000 ML 999 ML IV ×2 (03:39→06:53)
[2024-02-07 04:10] LABS: CDiff Gene PCR NEGATIVE (Negative)
[2024-02-07] MEDS: ondansetron HCL 4 MG/2 ML VIAL IVPUSH ×2 (04:47→17:09)
[2024-02-07] MEDS: Dicyclomine HCl 10 MG CAPSULE 20 MG PO (05:28)
--- NOTE | 2024-02-07 05:33 | PC.NURSE ---
patient ambulated with steady gait to the bathroom independently.
[2024-02-07 05:49] LABS: Appearance Urine Clear; Color Urine Yellow; Glucose Urine UA Negative (Negative); Leukocyte Esterase Urine Trace (Negative); Nitrite Urine Negative (Negative); PH 5.5 (5.0-9.0); Specific Gravity - Urine <= 1.005 (1.005-1.025); UMIC TRIGGER UACC YES; Urine Blood Negative (Negative); Urine Ketones Trace mg/dL (Negative); Urine Protein Negative (Neg-Trace)
[2024-02-07 06:16] LABS: Bacteria Urine None Seen (None Seen); Hyaline Casts Urine 0-2 /LPF (0-2); RBC Urine 0-2 /HPF (0-2); WBC Urine 0-5 /HPF (0-5)
[2024-02-07] MEDS: Morphine Sulfate 4 MG/ML CARTRIDGE IVPUSH (06:53)
[2024-02-07] MEDS: Metoclopramide HCl 10 MG/2 ML VIAL IVPUSH (06:53)
[2024-02-07] MEDS: 0.9 % Sodium Chloride 1,000 ML 125 ML IVCONT (09:38)
--- NOTE | 2024-02-07 09:41 | PC.NURSE ---
swabs obtained/sent to lab. IVF administered per provider order. IVF infusing @ 125 mls/hr into 20gIV in the left hand. pt pending admission at this time. plan of care ongoing. call mccormick placed within reach.
[2024-02-07 10:31] LABS: Influenza A PCR NEGATIVE (Negative); Influenza B PCR NEGATIVE (Negative); Resp Syncy Virus RNA Qual PCR NEGATIVE (Negative); SARS COV2 PCR INHOUSE NEGATIVE (Negative)
--- NOTE | 2024-02-07 10:55 | PM.IMHP ---
History of Present Illness Date of Service: 02/07/24 Chief Complaint: nausea/vomiting/diarrhea 73yo F with hx diverticulosis, asthma, arthritis, fibromyalgia, and prior C. difficile infection x2 who underwent L MALIA at [facility] [place] 01/12/24. Three days, she developed worsening nausea, vomiting, and non-bloody diarrhea. She has vomited 3-4x a day and had 7-10x episodes of diarrhea a day with inability to keep any solids or even water done. No fever but endorses chills and body aches. She has generalized abdominal discomfort. No high-risk food exposures other than chicken salad. No sick contacts. No overseas travel. In the ED, she was given 2L of IV NS, 4mg of IV ondansetron, 10mg of IV metoclopramide, and 4mg of IV morphine. C. difficile PCR was negative. She is still unable to keep down any solids. Review of Systems Review of Systems: Yes all other systems are reviewed and are negative [facility] Medical History Diverticulitis Arthritis Fibromyalgia Asthma Social History Household Members: Spouse Housing: House Do you presently have visiting nurse or other home services: No Alcohol intake: never Patient Tobacco Use Status: Former Tobacco user Tobacco use type: Cigarette Smoked in Last 30 Days: No e-Cigarette/Vaping Use: Never Used Patient Interested in Nicotine Replacement: No Patient Given Instructions on How to Stop Smoking: No Second Hand Smoke Exposure: No Use of substances other than those prescribed or required for medical reasons: No Currently Displaying Signs/Symptoms of Drug Intoxication Withdrawal: No Any prior treatment program specific to substance use: No Have you been hit, kicked, punched, or otherwise hurt by someone within the past year? 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 Meds Allergies Allergy/AdvReac Type Severity Reaction Status Date / Time latex Allergy Severe Anaphylaxis Verified 02/07/24 01:59 diphenhydramine AdvReac Intermediate rash Verified 02/07/24 01:59 [From Benadryl] levocetirizine [From Xyzal] AdvReac Intermediate depression Verified 02/07/24 01:59 Penicillins AdvReac Intermediate rask Verified 02/07/24 01:59 Sulfa (Sulfonamide AdvReac Intermediate rash Verified 02/07/24 01:59 Antibiotics) Active Medications: Current Medications Sodium Chloride (Ns) 1,000 mls @ 125 mls/hr IVCONT .Q8H ONE Stop: 02/07/24 17:22 Last Admin: 02/07/24 09:38 Dose: 125 mls/hr Home Medications ?Medication ?Instructions ?Recorded ?Confirmed ?Last Taken ?Type alirocumab 75 mg/mL subcutaneous 75 mg subcut Q2W 02/07/24 02/07/24 01/25/24 History pen injector (Praluent Pen) aspirin 325 mg tablet 325 mg PO BID 02/07/24 02/07/24 Unknown History coenzyme Q10 50 mg tablet 50 mg PO DAILY 02/07/24 02/07/24 Unknown History lactobacillus combination no.4 3 3,000 mmu cells PO DAILY 02/07/24 02/07/24 Unknown History billion cell capsule (Probiotic) loperamide 2 mg tablet 2 mg PO Q6H PRN Diarrhea 02/07/24 02/07/24 Unknown History multivitamin 1 tab PO DAILY 02/07/24 02/07/24 Unknown History ondansetron 8 mg disintegrating 8 mg PO TID 02/07/24 02/07/24 Unknown History tablet pantoprazole 40 mg tablet,delayed 40 mg PO DAILY 02/07/24 02/07/24 Unknown History release Physical Exam Vital Signs and Narrative: Vital Signs: Last Vital Signs Temp 97.3 F 02/07/24 09:53 Pulse 80 02/07/24 09:53 Resp 18 02/07/24 09:53 BP 112/54 L 02/07/24 09:53 Pulse Ox 95 02/07/24 09:53 O2 Del Method Room Air 02/07/24 09:53 BMI result Body Mass Index 29.2 Gen: in no acute distress HEENT: sclera anicteric, moist mucus membranes Neck: supple Lungs: clear to auscultation bilaterally Heart: regular rate and rhythm, no murmurs Abd: soft, generalized tenderness without rebound, non-distended Ext: no edema Skin: warm/well-perfused Neuro: alert and oriented x3, no focal findings Psych: appropriate affect Results Labs 02/07/24 02:07 02/07/24 02:07 Labs: Laboratory Results - last 24 hr 02/07/24 02/07/24 02/07/24 02:07 03:14 05:40 MCV 85.1 MCH 28.3 MCHC 33.2 RDW 13.6 Plt Count 294 MPV 8.3 L Immature Gran % (Auto) 0.2 Neut % (Auto) 59.7 Lymph % (Auto) 26.3 [place] % (Auto) 12.2 H Eos % (Auto) 1.1 Baso % (Auto) 0.5 Lymph # (Auto) 1.7 [place] # (Auto) 0.8 Eos # (Auto) 0.1 Baso # (Auto) 0.0 Abs Immat Gran (auto) 0.01 Absolute Neuts (auto) 3.9 Absolute Nucleated RBC 0.000 Nucleated RBC % (auto) 0.0 Anion Gap 15 Estim Creat Clear Calc 54.9 Estimated GFR 59 Random Glucose 107 Calcium 9.4 Total Bilirubin 0.4 Direct Bilirubin 0.2 AST 24 ALT 15 Alkaline Phosphatase 86 Total Protein 7.1 Albumin 3.8 Lipase 30 Urine Color Yellow Urine Appearance Clear Urine pH 5.5 Ur Specific [place] <= 1.005 Urine Protein Negative Urine Glucose (UA) Negative Urine Ketones Trace Urine Blood Negative Urine Nitrite Negative Ur Leukocyte Esterase Trace H Urine RBC 0-2 Urine WBC 0-5 Ur Squamous Epith Cells 3-5 Urine Bacteria None Seen Hyaline Casts 0-2 C. difficile Tox B Gene NEGATIVE Influenza Type A (PCR) Influenza Type B (PCR) RSV RNA Qual (PCR) SARS-CoV-2 RNA (RT-PCR) 02/07/24 09:38 MCV MCH MCHC RDW Plt Count MPV Immature Gran % (Auto) Neut % (Auto) Lymph % (Auto) [place] % (Auto) Eos % (Auto) Baso % (Auto) Lymph # (Auto) [place] # (Auto) Eos # (Auto) Baso # (Auto) Abs Immat Gran (auto) Absolute Neuts (auto) Absolute Nucleated RBC Nucleated RBC % (auto) Anion Gap Estim Creat Clear Calc Estimated GFR Random Glucose Calcium Total Bilirubin Direct Bilirubin AST ALT Alkaline Phosphatase Total Protein Albumin Lipase Urine Color Urine Appearance Urine pH Ur Specific [place] Urine Protein Urine Glucose (UA) Urine Ketones Urine Blood Urine Nitrite Ur Leukocyte Esterase Urine RBC Urine WBC Ur Squamous Epith Cells Urine Bacteria Hyaline Casts C. difficile Tox B Gene Influenza Type A (PCR) NEGATIVE Influenza Type B (PCR) NEGATIVE RSV RNA Qual (PCR) NEGATIVE SARS-CoV-2 RNA (RT-PCR) NEGATIVE Assessment and Plan (1) Gastroenteritis: Status: Acute Plan 73yo F with hx diverticulosis, asthma, arthritis, fibromyalgia, and prior C. difficile infection x2 who underwent L MALIA at [facility] 01/12/24 and presents with 3d of nausea, vomiting, diarrhea, and abdominal discomfort; unable to keep down any solids. gastroenteritis - Admit to M/S; give IV fluids; clear liquid diet; recheck BMP in AM. Ondansetron + metoclopramide for nausea relief. C. difficile pCR negative. Check stool GI panel. If fails to improve will consider CT A/P. asthma not in acute exacerbation - prn albuterol, ICS/LABA controller inhaler VTE ppx - enoxaparin dispo - eventual home code status - full I anticipate that the patient will stay at least 2 midnights as an inpatient in the hospital due to the above reasons. It is neither reasonable nor safe to care for them in a less acute setting. Quality Stroke Does the patient have a stroke diagnosis?: No VTE Prior VTE?: No VTE Risk Level:: Medical - moderate - high VTE Device Contraindication: N/A - Device Ordered VTE Drug Contraindication: N/A - Med Ordered
[2024-02-07] MEDS: Enoxaparin Sodium 40 MG/0.4 ML SYRINGE SUBCUT (11:54)
--- NOTE | 2024-02-07 12:00 | PHA.MEDREC ---
Pharmacy Consult ? Medication Reconciliation Pharmacy has completed the medication reconciliation. Spoke with patient. Patient confirmed she is no longer on oxycodone, pregabalin, tramadol and diclofenac.
[2024-02-07] MEDS: Simethicone 80 MG TAB.CHEW PO (13:34)
[2024-02-07] MEDS: Azithromycin 500 MG TABLET PO (15:39)
[2024-02-07] MEDS: 0.9 % Sodium Chloride Flush 3 ML SYRINGE IVFLUSH (19:44)
[2024-02-08 03:54] VITALS: BP 120/64; PULSE 73; RESP 18; TEMP 36.3; O2SAT 94
[2024-02-08] MEDS: ondansetron HCL 4 MG/2 ML VIAL IVPUSH ×2 (04:42→16:16)
[2024-02-08] MEDS: Acetaminophen 325 MG TABLET 650 MG PO ×3 (04:45→21:24)
[2024-02-08 07:31] LABS: Anion Gap 13 (12-20); Blood Urea Nitrogen 6 mg/dL (9-16); Calcium 8.6 mg/dL (8.4-10.2); Carbon Dioxide 26 mmol/L (22-29); Chloride 106 mmol/L (96-108); Creatinine Clr Calc Pharmacy 67.2; Estimated Glomerular Filt Rate > 60; Glucose Random 98 mg/dL (60-115); Potassium 3.4 mmol/L (3.3-5.1); Sodium 142 mmol/L (135-145)
[2024-02-08 08:00] VITALS: BP 128/64; PULSE 79; RESP 16; TEMP 36.9; O2SAT 95
--- NOTE | 2024-02-08 09:59 | P.PNIM_ITS ---
Subjective Subjective Date of Service: 02/08/24 Interval History: still having diarrhea abd discomfort improved though still present with taking liquids no further vomiting Review of Systems Review of Systems: Yes all other systems are reviewed and are negative Physical Exam 2 Vital Signs: Vital Signs: Last Vital Signs Temp 98.4 F 02/08/24 08:00 Pulse 79 02/08/24 08:00 Resp 16 02/08/24 08:00 BP 128/64 02/08/24 08:00 Pulse Ox 95 02/08/24 08:00 O2 Del Method Room Air 02/08/24 08:00 BMI result Body Mass Index 29.2 Gen: in no acute distress HEENT: sclera anicteric, moist mucus membranes Neck: supple Lungs: clear to auscultation bilaterally Heart: regular rate and rhythm, no murmurs Abd: soft, non-tender, non-distended Ext: no edema Skin: warm/well-perfused Neuro: alert and oriented x3, no focal findings Psych: appropriate affect Objective Data Active Medications Acetaminophen (Acetaminophen 325 Mg Tablet) 650 mg PO Q6H PRN PRN Reason: Pain, Mild (Pain Scale 1-3), fever or headache Last Admin: 02/08/24 04:45 Dose: 650 mg Documented By: LO Comments: per pt request Azithromycin (Azithromycin 500 Mg Tablet) 500 mg PO Q24H [facility] Stop: 02/09/24 15:16 Last Admin: 02/07/24 15:39 Dose: 500 mg Documented By: TRINIDAD Calcium Carbonate (Calcium Carbonate 750 Mg Tab.Chew) 750 mg PO Q4H PRN PRN Reason: Heartburn Enoxaparin Sodium (Enoxaparin Sodium 40 Mg/0.4 Ml Syringe) 40 mg SUBCUT Q24H [facility] Last Admin: 02/07/24 11:54 Dose: 40 mg Documented By: CHANDRA Magnesium Hydroxide (Milk Of Magnesia 30 Ml Oral.Susp) 30 ml PO DAILY PRN PRN Reason: Constipation Melatonin (Melatonin 3 Mg Tablet) 6 mg PO BEDTIME PRN PRN Reason: Insomnia Metoclopramide HCl (Metoclopramide Hcl 10 Mg/2 Ml Vial) 10 mg IVPUSH Q6H PRN PRN Reason: N/V unrelieved by Debra Multivitamins/Vitamin C (Multivitamin Tablet) 1 tab PO DAILY [facility] Last Admin: 02/08/24 08:31 Dose: Not Given Documented By: TRINIDAD Non-Admin Reason: Patient Refused Ondansetron HCl (Ondansetron Hcl 4 Mg/2 Ml Vial) 4 mg IVPUSH Q4H PRN PRN Reason: Nausea and Vomiting Last Admin: 02/08/24 04:42 Dose: 4 mg Documented By: LO Pantoprazole Sodium (Pantoprazole Sodium 20 Mg Tablet.Dr) 40 mg PO DAILY [facility] Last Admin: 02/08/24 08:31 Dose: Not Given Documented By: TRINIDAD Non-Admin Reason: Patient Refused Simethicone (Simethicone 80 Mg Tab.Chew) 80 mg PO QIDWMHS PRN PRN Reason: Gas Last Admin: 02/07/24 13:34 Dose: 80 mg Documented By: TRINIDAD Sodium Chloride (0.9 % Sodium Chloride Flush 3 Ml Syringe) 3 ml IVFLUSH QSHIFT [facility] Last Admin: 02/08/24 09:15 Dose: Not Given Documented By: TRINIDAD Non-Admin Reason: Previously Administered Labs 02/07/24 02:07 02/08/24 05:33 Labs: Laboratory Results - last 24 hr 02/07/24 02/08/24 09:38 05:33 Hold Purple Top SEE NOTE Anion Gap 13 Estim Creat Clear Calc 67.2 Estimated GFR > 60 Random Glucose 98 Calcium 8.6 D Influenza Type A (PCR) NEGATIVE Influenza Type B (PCR) NEGATIVE RSV RNA Qual (PCR) NEGATIVE SARS-CoV-2 RNA (RT-PCR) NEGATIVE Assessment and Plan (1) Campylobacter diarrhea: Status: Acute Plan d2 73yo F with hx diverticulosis, asthma, arthritis, fibromyalgia, and prior C. difficile infection x2 who underwent L MALIA at [facility] [place]/12[place]24 and presents with 3d of nausea, vomiting, diarrhea, and abdominal discomfort; unable to keep down any solids on-call doctor for PCP called in positive result for Campylobacter Campylobacter gastroenteritis - azithromycin 02/06-02/08, continue clear liquids, ondansetron + metoclopramide for nausea relief asthma not in acute exacerbation - prn albuterol, ICS/LABA controller inhaler VTE ppx - enoxaparin dispo - eventual home In my clinical judgment, the patient requires continued inpatient hospitalization for the following reasons: advancing diet Total time managing care of this patient today: 35 minutes. Quality Stroke Does the patient have a stroke diagnosis?: No VTE Prior VTE?: No VTE Risk Level:: Medical - moderate - high VTE Device Contraindication: N/A - Device Ordered VTE Drug Contraindication: N/A - Med Ordered
[2024-02-08] MEDS: Enoxaparin Sodium 40 MG/0.4 ML SYRINGE SUBCUT (11:09)
[2024-02-08] MEDS: Simethicone 80 MG TAB.CHEW PO ×2 (11:43→16:16)
[2024-02-08] MEDS: Azithromycin 500 MG TABLET PO (14:17)
[2024-02-08 16:00] VITALS: BP 137/59; PULSE 77; RESP 16; TEMP 36.8; O2SAT 95
[2024-02-08] MEDS: 0.9 % Sodium Chloride Flush 3 ML SYRINGE IVFLUSH (16:16)
[2024-02-08] MEDS: Metoclopramide HCl 10 MG/2 ML VIAL IVPUSH (17:54)
[2024-02-08 19:46] VITALS: BP 162/99; PULSE 75; RESP 18; TEMP 36.2; O2SAT 95
[2024-02-09] MEDS: 0.9 % Sodium Chloride Flush 3 ML SYRINGE IVFLUSH ×3 (00:16→16:14)
[2024-02-09 03:30] VITALS: BP 137/70; PULSE 74; RESP 20; TEMP 36.2; O2SAT 95
[2024-02-09] MEDS: Acetaminophen 325 MG TABLET 650 MG PO ×2 (03:47→11:52)
[2024-02-09] MEDS: Simethicone 80 MG TAB.CHEW PO ×2 (03:47→11:52)
[2024-02-09] MEDS: ondansetron HCL 4 MG/2 ML VIAL IVPUSH ×3 (06:45→17:43)
[2024-02-09 07:38] VITALS: BP 132/68; PULSE 73; RESP 16; TEMP 36.1; O2SAT 96
[2024-02-09] MEDS: Calcium Carbonate 750 MG TAB.CHEW PO (08:55)
[2024-02-09] MEDS: Multivitamin TABLET 1 TAB PO (08:55)
[2024-02-09] MEDS: Pantoprazole Sodium 20 MG TABLET.DR 40 MG PO (08:55)
[2024-02-09] MEDS: Enoxaparin Sodium 40 MG/0.4 ML SYRINGE SUBCUT (11:52)
[2024-02-09 15:26] VITALS: BP 122/58; PULSE 82; RESP 16; TEMP 36.5; O2SAT 95
--- NOTE | 2024-02-09 15:39 | PM.DS ---
DS: Providers Provider Date of Service: 02/09/24 Date of admission: 02/07/24 10:52 Date of discharge: 02/09/24 Primary care physician: Gifty Boswell MD DS: Diagnosis Discharge Diagnosis (1) Campylobacter diarrhea: Status: Acute DS: Summary Hospital Course Hospital Course: Date of Service: 02/07/24 Chief Complaint: nausea/vomiting/diarrhea 73yo F with hx diverticulosis, asthma, arthritis, fibromyalgia, and prior C. difficile infection x2 who [place] [facility] [place]. Three days, she developed worsening nausea, vomiting, and non-bloody diarrhea. She has vomited 3-4x a day and had 7-10x episodes of diarrhea a day with inability to keep any solids or even water done. No fever but endorses chills and body aches. She has generalized abdominal discomfort. No high-risk food exposures other than chicken salad. No sick contacts. No overseas travel. In the ED, she was given 2L of IV NS, 4mg of IV ondansetron, 10mg of IV metoclopramide, and 4mg of IV morphine. C. difficile PCR was negative. She is still unable to keep down any solids. Hospital course 73yo F with hx diverticulosis, asthma, arthritis, fibromyalgia, and prior C. difficile infection x2 who underwent L MALIA [place] [facility] [place] and presents with 3d of nausea, vomiting, diarrhea, and abdominal discomfort; unable to keep down any solids, on-call doctor for PCP called in positive result for Campylobacter, admitted to medical floor, treated with IV fluids, analgesics, antiemetics and IV azithromycin for 3 days duration nausea vomiting resolved noted to have gas and couple loose stools since patient is hemodynamically stable tolerating diet she is being discharged home to continue as needed antiemetics and recommended to take bland low-fiber diet for next few days. Mild persistent asthma not in acute exacerbation continue home inhalers Time Attestation Discharge Coordination Time (in mins): 36 Quality: Safe Use of Opioids Does Pt have an Active Cancer Diagnosis on the Problem List?: No Quality: Stroke Does the patient have a stroke diagnosis?: No Physical Exam Vital Signs: Vital Signs: Last Vital Signs Temp 97.7 F 02/09/24 15:26 Pulse 82 02/09/24 15:26 Resp 16 02/09/24 15:26 BP 122/58 L 02/09/24 15:26 Pulse Ox 95 02/09/24 15:26 O2 Del Method Room Air 02/09/24 15:26 BMI result Body Mass Index 29.2 Const: Other: Gen: in no acute distress HEENT: sclera anicteric, moist mucus membranes Neck: supple Lungs: clear to auscultation bilaterally Heart: regular rate and rhythm, no murmurs Abd: soft, non-tender, non-distended Ext: no edema Skin: warm/well-perfused Neuro: alert and oriented x3, no focal findings Psych: appropriate affect Discharge Plan Discharge Anticipated Discharge Date/Time: 02/09/24 15:36 Patient Disposition: Home, Self-Care Discharge Diagnosis: Campylobacter diarrhea Referrals: Gifty Sterling MD [Primary Care Provider] - 1 Week Discharge Medications: New dicyclomine 20 mg tablet 20 mg PO TID Qty: 20 0RF Continued aspirin 325 mg Tablet 325 mg PO BID ondansetron 8 mg tablet,disintegrating 8 mg PO TID pantoprazole 40 mg tablet,delayed release (DR/EC) 40 mg PO DAILY coenzyme Q10 50 mg Tablet 50 mg PO DAILY Probiotic 3 billion cell Capsule 3,000 mmu cells PO DAILY Rx Instructions: administer with a meal Praluent Pen 75 mg/mL pen injector 75 mg subcut Q2W Rx Instructions: FRIDAY Held multivitamin Tablet 1 tab PO DAILY Hold Instructions: Resume on 02/16/24. Discontinued loperamide 2 mg Tablet 2 mg PO Q6H PRN (Reason: Diarrhea) Discharge Orders: Discharge Order (Routine); Ordered 02/09/24 Ordered By: Tracy Croft Diet: bland diet Activity on Discharge: As tolerated Stand Alone Forms: Patient Portal Discharge page Print Language: Luxembourger Care Plan Goals: Follow bland diet for next few days till diarrhea nausea resolves/avoid high-fiber diet, Zofran for nausea Resume aspirin twice daily as per Orthopedic surgery Health Concerns: Continue all home medication Plan of Treatment: Outpatient follow-up with primary care physician and Orthopedic surgery. Assessment: as above Patient Instructions: Gastroenteritis (ED) Discharge Date/Time: 02/09/24 19:08
[2024-02-09] MEDS: Azithromycin 500 MG TABLET PO (16:13)
--- NOTE | 2024-02-09 16:28 | MHC.CM.PN ---
PT WILL DC HOME TODAY WITH NO SERVICES VIA PRIVATE TRANSPORT
--- OUTSIDE RECORDS SUMMARY | 2024-02-11 11:32 | XMS_ITS | Continuity of Care Document ---
Author Organization [facility] ter Address [address] [place] [id number]- Care Team Providers Care Gluing Machine Offbearer Name Role Phone [facility]well [facility], [facility] Encounter [facility] ACCT R [id number] Date(s): 12/12/23 - 01/23/[address] [address]- Attending Physician: Kike Massey MD Admitting Physician: Kike Massey MD Referring Physician: Kike Massey MD Encounter Type: Pre-Outpt Allergies, Adverse Reactions, Alerts Substance Criticality Severity Reaction Reaction Severity Status penicillins rash Active sulfa drugs hives rash Active Benadryl rash Active Cats hives asthma Active Dogs hives asthma Active Dust hives asthma Active Fish anaphylatic perch Active Latex blistering all over breathing problem Active Mold rash hives asthma Ac tive Nickel Active Pollen hives asthma Active Xyzal 1 Active 1Causes suicidal ideation Medications acetaminophen 325 mg oral tablet 650 mg, By Mouth, Every 6 hours, may take OTC not to exceed 3000 mg/day, Refills 0, Maintenance, 01/13/24 10:09:00 AM EST, Partial fill upon patient request if the prescription is for a schedule II opioid drug. Start Date: 01/13/24 Status: Ordered Repeat number: 1 Breo Ellipta 100 mcg-25 mcg/inh inhalation powder 1 puffs, Inhalation, Daily, # 30 each, 0 Refills, Maintenance, 01/03/23 8:05:00 AM EDT, Powder, Partial fill upon patient request if the prescription is for a schedule II opioid drug. Start Date: 01/03/23 Status: Ordered Quantity: 30.0 Unit: each Repeat number: 1 Claritin Tablet 10 mg, By Mouth, Daily, Maintenance, 07/26/14 2:01:59 PM EDT Start Date: 07/26/14 Status: Ordered Repeat number: 1 docusate sodium 100 mg oral tablet 1 tablet = 100 mg, By Mouth, Daily, PRN for constipation, # 60 tablet, 0 Refills, Maintenance, 01/07/24 9:10:00 AM EST, Tablet, Partial fill upon patient request if the prescription is for a schedule II opioid drug. Start Date: 01/07/24 Status: Ordered Quantity: 60.0 Unit: tablet Repeat number: 1 Ecotrin 325 mg oral delayed release tablet 1 tablet = 325 mg, By Mouth, 2 times a day, # 60 tablet, 0 Refills, Maintenance, 01/13/24 10:07:00 AM EST, [facility] 3, Partial fill upon patient request if the prescription is for a schedule II opioid drug., 160.02, cm, 01/13/24 7:37:00 EST, Height, 74.1, kg, 01/12/24 14:46:00 EST, Dry Weight Start Date: 01/13/24 Stop Date: 02/12/24 Status: Ordered Quantity: 60.0 Unit: tablet Repeat number: 1 MiraLax oral powder for reconstitution = 17 Gm, By Mouth, Daily, # 238 Gm, 0 Refills, Maintenance, 01/07/24 9:09:00 AM EST, REC Powder, Partial fill upon patient request if the prescription is for a schedule II opioid drug. Start Date: 01/07/24 Status: Ordered Quantity: 238.0 Unit: g Repeat number: 1 MOM Liquid 30 mL, By Mouth, Daily, PRN Constipation, 0 Refills, Maintenance, 01/13/24 10:10:00 AM EST, Suspension, Partial fill upon patient request if the prescription is for a schedule II opioid drug. Start Date: 01/13/24 Status: Ordered Repeat number: 1 pantoprazole 40 mg oral delayed release tablet = 40 mg, By Mouth, Daily, # 30 tablet, 0 Refills, Maintenance, 01/13/24 10:07:00 AM EST, EC Tablet,160.02, cm, 01/13/24 7:37:00 EST, Height, 74.1, kg, 01/12/24 14:46:00 EST, Dry Weight Start Date: 01/13/24 Stop Date: 02/12/24 Status: Ordered Quantity: 30.0 Unit: tablet Repeat number: 1 ProAir HFA 2 puffs, Inhalation, 4 times a day, 0 Refills, Maintenance, 04/01/12 10:42:18 AM EST Start Date: 04/01/12 Status: Ordered Repeat number: 1 Problem List Condition Confirmation Course Effective Dates Status H ealth Status Informant Allergic rhinitis Confirmed Active Fibromyalgia Confirmed Active Hyperlipidemia Confirmed Active Severe persistent asthma Confirmed Active Statin intolerance Confirmed Active Social History Social History Type Response Tobacco Other: Former smoker . Sex Sex Representation Female (finding) Patient Care team information Care Team Personnel Name: Azar Rahman RN Position: S RN Member Role: Primary Care Nurse Name: Heaven Segal RN Position: S RN Member Role: Primary Care Nurse Name: Gifty Sterling MD Position: S Outreach Member Role: PCP Address: [address] [place] [address] Telecom: Name: Geeta De Jesus RN Position: S RN Member Role: Primary Care Nurse Name: Sabiha Solorio RN Position: S RN Member Role: Primary Care Nurse Name: Sheri Mckeon RN Position: S RN Member Role: Primary Care Nurse Care Team Related Persons Name: STEFANI ERAZO Name: SENG ERAZO Insurance Providers Guarantor name: JOSE KACEY Health Plan Information #: 1 Payer: MEDICARE PART B OUTPT Member Number: [id number] Policy Number: NA Group Number: NA Health Plan Information #: 2 Payer: [place] Member Number: [id number] Policy Number: NA Group Number: NA Health Plan Information #: 3 Payer: MEDICARE A INPT 25 Member Number: NA Policy Number: NA Group Number: NA
--- OUTSIDE RECORDS SUMMARY | 2024-02-11 11:33 | XMS_ITS | Continuity of Care Document ---
Author Organization [facility] Address [address] [place] [address]- Care Team Providers Care Bathroom Tiling Professional Name Role Phone Boston Boswell MD, [facility] Primary Care Phys [facility] [place] [facility] [place] [id number] Date(s): 01/05/24 - 02/04/24 [facility] [address] [place], [place] [address] Attending Physician: Admjuan pablo, [id number] Admitting Physician: AdmtrRika Referring Physician: Admtr, [id number] Encounter Type: Triage Allergies, Adverse Reactions, Alerts Substance Criticality Severity Reaction Reaction Severity Status penicillins rash Active sulfa drugs hives rash Active Mold rash hives asthma Ac tive Xyzal 1 Active Benadryl rash Active Cats hives asthma Active Dogs hives asthma Active Dust hives asthma Active Latex blistering all over breathing problem Active Fish anaphylatic perch Active Nickel Active Pollen hives asthma Active 1Causes suicidal ideation Medications acetaminophen 325 [...] 0 Refills, Maintenance, 01/13/24 10:07:00 AM EST, [facility] 3, Partial fill upon patient [...] Care Nurse Name: Gifty Sterling MD Position: [facility] Outreach Member Role: PCP Address: [address] [place] [address] Telecom: Name: Geeta De Jesus RN Position: S RN Member Role: Primary Care Nurse Name: Sabiha Solorio RN Position: S RN Member Role: Primary Care Nurse Name: Sheri Mckeon RN Position: S RN Member Role: Primary Care Nurse Care Team Related Persons Name: STEFANI ERAZO Name: SENG ERAZO Insurance Providers Guarantor name: JOSE KACEY Health Plan Information #: 1 Payer: MEDICARE A INPT 25 Member Number: NA Policy Number: NA Group Number: NA Health Plan Information #: 2 Payer: [place] Member Number: NA Policy Number: NA Group Number: NA
--- OUTSIDE RECORDS SUMMARY | 2024-02-11 11:33 | XMS_ITS | Continuity of Care Document ---
Author Organization [facility] ter Address [address] [place] [id number]- Care Team Providers Care Pulp Maker Name Role Phone [place] Boswell [facility] [place] Encounter [facility] [place] Date(s): 12/24/23 - 01/23/[address] [address]- Attending Physician: Admtr, [id number] Admitting Physician: Admtr, Rika Referring Physician: Admtr, [id number] Encounter Type: Triage [...] 0 Refills, Maintenance, 01/13/24 10:07:00 AM EST, [facility] [place] [facility], Partial fill upon patient request if [...] Position: S Outreach Member Role: PCP Address: [address] [place] [address] Telecom: Name: Geeta De Jesus RN Position: [...]
--- OUTSIDE RECORDS SUMMARY | 2024-02-11 11:33 | XMS_ITS | Data Portability ---
Author Organization GIOVANNI Juan Bundy [facility], [facility] Address [address] [place] [address] Care Team Providers Care Steelworker Name Role Phone GIFTY KAMARA Referring Provider GIFTY KAMARA Primary Care Provide r Assessment Encounter Date Assessment Date Assessment LastModified by Organization Details LastModified Time 12/29/2023 12/29/2023 Assessment: Patient presents with symptoms that are consistent with hip OA. Demonstrates good understanding of home program, post-operative mechanics for gait and stairs, hip kit, and expectations following surgery. ??? Plan: Discharge patient to hip OA friendly HEP. Follow up with patient post-operatively. angus Not available 12/29/2023 16:02:00 01/06/2024 01/06/2024 PRIMARY DIAGNOSI S: Osteoarthritis of the left hip. REASON FOR ADMISSION: The patient is being admitted for an anterior left total hip arthroplasty with Dr. Kike Massey on 01/12/2024. HISTORY OF PRESENT ILLNESS: Ms. Rausch is a 73-year-old female, who presents today for surgical history and physical prior to undergoing a left anterior total hip arthroplasty with Dr. Kike Massey on 01/12/2024. She has a known longstanding history of left hip osteoarthritis and has undergone a lengthy course of conservative management with generalized failure of nonsurgical options. Her pain is severe and worsens with activity. It has gotten to the point where significantly interfering with her ability to perform activities of daily living as well as daily social tasks. She is now interested in pursuing a left total hip arthroplasty via anterior approach with Dr. Massey. PAST MEDICAL HISTORY: 1. Osteoarthritis of the left hip. 2. Allergic rhinitis. 3. Asthma. 4. Hypercholesterolem ia. 5. Eczema. 6. Fibromyalgia. 7. Low back pain. 8. Anaphylaxis with Latex PAST SURGICAL HISTORY: 1. Left foot surgery with hardware removal. 2. Left carpal tunnel release. CURRENT MEDICATIONS: 1. Breo Ellipta inhaler 200 mcg-25 mcg inhaler once daily. Instructed to bring inhaler to hospital. 2. Ventolin inhaler as needed. 3. Colace as needed. 4. MiraLax as needed. 5. Vitamin D tablet daily. 6. Praluent 75 mg/mL subcutaneous injection. 7. Pregabalin 50 mg daily. 8. Guaifenesin, but the patient says she is unsure of the dose. ALLERGIES: BENADRYL; LATEX, CAUSES ANAPHYLAXIS; PENICILLIN; SULFA AND XYZAL. SOCIAL HISTORY: She is . She has rare alcohol use. She denies tobacco or illicit drug use. PHYSICIANS: The patient's primary care physician is Gifty Cohen MD. REVIEW OF SYSTEMS: The patient's 12-point review of systems is negative unless mentioned in the HPI. PHYSICAL EXAMINATION: VITAL SIGNS: Weight is 176 pounds. GENERAL: Alert and oriented. Normal insight, affect and grooming. SKIN: Intact without rashes or lesions. Nails are without clubbing or cyanosis. HEENT: Normocephalic. Conjunctivae are pink. Sclerae are anicteric. NECK: Supple. LUNGS: Clear to auscultation bilaterally. Breathing is unlabored. HEART: Regular rate and rhythm with normal S1 and S2. No murmurs, rubs or gallops appreciated. ABDOMEN: Soft and nontender. EXTREMITIES: Left hip, skin is intact without rashes or lesions. Range of motion, extension 0 degree, flexion is 100-110 degrees; internal rotation, flexion is 5-15 degrees; external rotation, flexion is 30-35 degrees; abduction is 30-40 degrees and adduction is 10-15 degrees. There is 2+ dorsalis pedis pulse. There is 5/5 strength with ankle plantarflexion and ankle dorsiflexion. There is normal sensation in bilateral lower extremities. PREOPERATIVE DIAGNOSTIC DATA: Orthopedic x-rays demonstrate severe DJD present on the left hip. Changes are consistent with osteoarthritis including joint space narrowing, subchondral sclerosis and osteophyte formation. Arthrosis primarily affecting the superior compartment. EKG, which was performed at the medicine preoperative clinic showed normal sinus rhythm with heart rate of 79. LABORATORY DATA: CBC, coags and chemistries reviewed and are satisfactory for surgery. Her hemoglobin A1c is 6.1 with GFR of 79. ASSESSMENT AND PLAN: The patient has advanced osteoarthritis of the left hip and is now scheduled for an anterior left total hip arthroplasty with Dr. Kike Massey on 01/12/2024. She has been seen the medicine preoperative clinic, who deemed her to be a low cardiovascular and a low pulmonary risk. They did feel that she is at risk for secondary adrenal insufficiency due to exogenous steroid exposure and recommended the patient be evaluated for steroid stress dosing by Anesthesia. They did discuss a possible outcome of postoperative rehabilitation. She will receive IV TXA and be placed on aspirin postoperatively for deep vein thrombosis prophylaxis. She will not receive Celebrex due to her SULFA ALLERGY. She states that she does have meloxicam at home, which at times does cause a headache, but states she will use postoperatively. Discharge plans will be home with services. The patient would like to stay overnight after surgery. She has been counseled regarding her risks and benefits of the proposed procedure. Questions have been answered and she acknowledged understanding. The patient wishes to proceed with an anterior left total hip arthroplasty with Dr. Massey. CONTACTS: Her , Lucio, at [phone]. A backup phone number is for Frieda, . Prescriptions given at the time of the history and physical today include none. She will require prescription for aspirin, pantoprazole, ondansetron and pain medication at the time of discharge. She already has Colace at home and meloxicam at home. [email or web address] Not available 01/07/2024 09:44:25 01/27/2024 01/27/2024 Assessment: Patient presents with symptoms that are consistent with MALIA including antalgic gait mechanics, decreased ROM, strength limitations, and difficulty navigating stairs. Plan: Continue with PT at 2x/week for 4 weeks focusing on decreasing pain, improving ROM, strength, optimizing gait and stair mechanics, and mobility for functional ADL's. angus Not available 01/28/2024 07:44:03 02/02/2024 02/02/2024 Assessment: Improved gait w/ use of SPC, antalgic gait w/o can short distances. Weak glute/global LE. TTP along inciison/distal ITB. Plan: Continue with PT at 2x/week for 4 weeks focusing on decreasing pain, improving ROM, strength, optimizing gait and stair mechanics, and mobility for functional ADL's. angus Not available 02/03/2024 08:32:20 Plan of Treatment Reminders Order Date Submit Date Provider Last Modified By Organization Details Last Modified Time Details Appointments PT FOLLOW- UP 2023 01:30P M Karen Joynere, DIE CASTING MACHINE SETTER Not available Not available Not available PT FOLLOW- UP 2023 02:00P M Justin Garcia , DPT Not available Not available Not available PT FOLLOW- UP 2023 02:00P M Karen Joynere, DIE CASTING MACHINE SETTER Not available Not available Not available POST OP 10 2023 12:50P M Kike Massey MD Not available Not available Not available PT FOLLOW- UP 2023 02:30P M Karen Joynere, DIE CASTING MACHINE SETTER Not available Not available Not available PT FOLLOW- UP 2023 02:30P M Karen Joynere, DIE CASTING MACHINE SETTER Not available Not available Not available Lab None recorde d. Referral None recorde d. Procedures None recorde d. Surgeries None recorde d. Imaging XR, hip + pelvis, unilate ral, 2 or 3 view - 1ST POST OP ALTHR 01/11 AB - left rm 210 2023 024 [email or web address] [facility] [address] [facility] [address], [facility] [address], [place], [address], 01/27/2024 09:52:34 Medication Orders None recorde d. Patient Targets Encounter Date Encounter Id Patient Goals Patient Target Last Modified By Organization Details Last Modified Time 01/27/2024 [id number] 3 weeks of Left Hip AROM -[id number] Not available Not available Not available 3 weeks of Left Hip AROM -[id number] Not available Not available Not available 3 weeks of Left Hip AROM -[id number] Not available Not available Not available residential goal of Left Hip AROM -052846 Not available Not available Not available residential goal of Left Hip AROM -760114 Not available Not available Not available director long term care goal of Left Hip AROM -774792 Not available Not available Not available 3 weeks of Left Hip Strength -312700 Not available Not available Not available 3 weeks of Left Hip Strength -232799 Not available Not available Not available 3 weeks of Left Hip Strength -805532 Not available Not available Not available director long term care goal of Left Hip Strength -528983 Not available Not available Not available director long term care goal of Left Hip Strength -851850 Not available Not available Not available residential goal of Left Hip Strength -853347 Not available Not available Not available director long term care goal of Squatting -672783 Not available Not available Not available 3 weeks of Gait and Stance: -115974 Not available Not available Not available director long term care goal of Gait and Stance: -988124 Not available Not available Not available 3 weeks of Sitting to standing transfers (ability to move from sitting to a standing position without symptoms) -[id number] Not available Not available Not available residential goal of Sitting to standing transfers (ability to move from sitting to a standing position without symptoms) -[id number] Not available Not available Not available Patient InstructionsNo instructions recorded. Reason for Referral None Reported. Results Created Date Observation Date Name Description Value Unit Range Abnormal Flag Note LastModifiedBy Organization Detail LastModifiedTime 12/12/19 24 12/12/2023 XR, hip + pelvi s, unila teral , 2 or 3 view http:/ [email or web address]:[email or web address] ?Encry pted=s hAaTro YD8dLq bEUv6g %2BXZw aYqtaq 0bqfl% 2Fg9IQ a4ajBk vP9nXo QUaueC m3YtLR FvZlgJ JJ8mAn HZtai3 8s2575 AC0Kqa 3uFVaK kKiQtr MwF INTERFACE [facility] Office [address] [facility] [address], [place], [address], 12/12/2023 13:52:39 12/12/19 24 12/12/2023 XR, hip + pelvi s, unila teral , 2 or 3 view http:/ [email or web address] . [email or web address]:7083 ?Encry pted=s hAaTro YD8dLq bEUv6g %2BXZw aYqtaq 0bqfl% 2Fg9IQ a4ajBk vP9nXo QUaueC m3YtLR FvZlgJ JJ8mAn HZtai3 7z6254 AC0Kqa 3uFVaK kKiQtr MwF INTERFACE [facility] [address], [place], [address], 12/12/2023 13:52:41 01/10/20 24 12/12/2023 XR, hip + pelvi s, unila teral , 2 or 3 view http:/ [email or web address]:[email or web address] ?Encry pted=s hAaTro YD8dLq bEUv6g %2BXZw aYqtaq 0bqfl% 2Fg9IQ a4ajBk vP9nXo QUaueC m3YtLR FvZlgJ JJ8mAn HZtai3 5q2111 AC0Kqa 3uFVaK kKiQtr MwF INTERFACE [facility] [address], [place], [address], 01/10/2024 11:37:55 01/10/20 24 12/12/2023 XR, hip + pelvi s, unila teral , 2 or 3 view http:/ [email or web address] ?Encry pted=s hAaTro YD8dLq bEUv6g %2BXZw aYqtaq 0bqfl% 2Fg9IQ a4ajBk vP9nXo QUaueC m3YtLR FvZl JJ8mAn HZtai3 8u0937 AC0Kqa 3uFVaK kKiQtr MwF INTERFACE [facility] [address], [place], [address], 01/10/2024 11:37:56 01/12/20 24 01/12/2024 XR, hip + pelvi s, unila teral , 2 or 3 view No observ ation record ed. [facility] [address] [place], [address], 01/14/2024 10:40:36 01/12/20 24 01/12/2024 XR, hip + pelvi s, unila teral , 2 or 3 view No observ ation record ed. [facility] [address], [place], [address], 01/14/2024 10:40:37 01/26/20 24 01/26/2024 XR, hip + pelvi s, unila teral , 2 or 3 view http:/ [email or web address] ?Encry pted=s hAaTro YD8dLq bEUv6g %2BXZw aYqtaq 0bqfl% 2Fg9IQ a4ajBk vP9nXo QUaueC m3YtLR FvZlgJ JJ8mAn HZtai3 5e4378 AC0Kqa XmAVKS uKiQtr MwF INTERFACE [facility] [address], [place], [address], 01/26/2024 15:07:59 01/26/20 24 01/26/2024 XR, hip + pelvi s, unila teral , 2 or 3 view http:/ [email or web address]:[email or web address] ?Encry pted=s hAaTro YD8dLq bEUv6g %2BXZw aYqtaq 0bqfl% 2Fg9IQ a4ajBk vP9nXo QUaueC m3YtLR FvZlgJ JJ8mAn HZtai3 3n8701 AC0Kqa XmAVKS uKiQtr MwF INTERFACE [facility] [address], [place], [address], 01/26/2024 15:08:01 Result Notes None recorded. Problems Name Problem SNOMED Code Status Onset Date Resolution Date Notes Provider Name and Address Organization Details Recorded Time Osteoarthr itis of left hip joint 6238387006285 08 Active 2023 Kike Massey MD [address], [place], [address] , [facility] 17:02:30 Problem Notes None recorded. Procedures Surgical History Date Name Laterality Status Provider Name and Address Organization Details Recorded Time 4 37828 Therapeutic Exercise (1:1) completed Justin Mastorakis, DPT [address], [place], [address], [facility] 02/03/2024 08:29:38 4 37362 Therapeutic Exercise (1:1) completed Justin Mastorakis, DPT [address], [place], [address], [facility] 01/28/2024 07:47:25 4 11833: Low complexity PT Eval completed Justin Mastjonathankis, DPT [address], [place], [address], [facility] 01/28/2024 07:47:35 4 G8417 BMI Above Upper Parameters, F/U Documented completed Justin Mastjonathankis, DPT [address], [place], [address], [facility] 01/28/2024 07:47:31 4 G8427 Current Medication Documented completed Justin Mastedenilsons, DPT [address], [place], [address], [facility] 01/28/2024 07:47:28 4 43307 Therapeutic Exercise (1:1) completed Justin Mastjonathankis, DPT [address], [place], [address], [facility] 12/30/2023 10:10:01 4 66378: Low complexity PT Eval completed Justin Mastedenilsons, DPT [address], [place], [address], [facility] 12/30/2023 10:10:03 4 G8417 BMI Above Upper Parameters, F/U Documented completed MEGAN MatamorosT [address], [place], [address], [place] [facility] 12/29/2023 16:02:16 4 G8427 Current Medication Documented completed MEGAN MatamorosT [address], [place], [address], [place] [facility] 12/29/2023 16:02:12 Ankle/Foot Surgery completed Kiki Dyer [facility] 12/12/2023 13:32:53 Hand Surgery completed Kiki Dyer [facility] 12/12/2023 13:32:53 Imaging Results Imaging Date Name Status LastModified by Organiz ation Details LastModified Time 12/12/2023 XR, hip + pelvis, unilateral , 2 or 3 view completed INTER[facility] [address], [place], [address], 12/12/2023 13:52:39 12/12/2023 XR, hip + pelvis, unilateral , 2 or 3 view completed INTERFACE [facility] [address], [place], [address], 12/12/2023 13:52:41 12/12/2023 XR, hip + pelvis, unilateral , 2 or 3 view completed INTERFACE [facility] [address], [place], [address], 01/10/2024 11:37:55 12/12/2023 XR, hip + pelvis, unilateral , 2 or 3 view completed INTERFACE [facility] [address], [place], [address], 01/10/2024 11:37:56 01/12/2024 XR, hip + pelvis, unilateral , 2 or 3 view completed [address], [address], 01/14/2024 10:40:36 01/12/2024 XR, hip + pelvis, unilateral , 2 or 3 view completed [place] [address], [place], [address], 01/14/2024 10:40:37 01/26/2024 XR, hip + pelvis, unilateral , 2 or 3 view completed INTERFACE [facility] [address], [place], [address], 01/26/2024 15:07:59 01/26/2024 XR, hip + pelvis, unilateral , 2 or 3 view completed INTERFACE [facility] [address], [place], [address], 01/26/2024 15:08:01 Procedure Notes None recorded. Medical Equipment None Reported. Allergies Allergen ID Allergen Name Allergen Category Reaction Reaction Severity Criticality Documentation Date Start Date Code Code System Note Provider Name and Address Organization Details Recorded Time 007978 latex environme nt,medica tion anaphylax is Not available Not available 10/07/2023 66778 91 RxNorm BRENT OZUNA-M HORTENSIA ferrell, [facility] 4 16:09:10 821016 Medicinal product containin g penicilli n and acting as antibacte rial agent (product) medicatio n Not available Not available Not available 10/07/2023 81161 05 SNOMED BRENT OZUNA-M EJIA ghassan, [facility] 4 16:10:22 395599 Benadryl medicatio n Not available Not available Not available 10/07/2023 77946 7 RxNorm BRENT OZUNA-M INEZIA ghassan, [facility] 4 16:10:29 494698 Xyzal medicatio n Not available Not available Not available 10/07/2023 89553 5 RxNorm BRENT OZUNA-M EJIA ghassan, [facility] 4 16:10:55 526016 Substance with sulfonami de structure and antibacte rial mechanism of action (substanc e) medicatio n Not available Not available Not available 10/07/2023 11496 8003 SNOMED BRENT ferrell [place] - [place] [facility] 16:11:07 Medications Name Sig Start Date Stop Date Status Note LastModified by Organization Details LastModified Time prednisone 10 mg tablet 10/06 completed Not Available Not Available Not Available tizanidine 2 mg tablet TAKE 1 TABLET BY MOUTH EVERY 8 HOURS DIRECTED FOR 7 DAYS active Not Available Not Available No t Available chlorzoxazo ne 500 mg tablet active Not Available Not Available Not Available meloxicam 15 mg tablet active Not Available Not Available Not Available ondansetron HCl 4 mg tablet TAKE 1 TABLET BY MOUTH EVERY 8 HOURS NEEDED FOR NAUSEA AND VOMITING active Not Available Not Available No t Available isosorbide mononitrate ER 30 mg tablet,exte nded release 24 hr 10/06 completed Not Available Not Available Not Available tramadol 50 mg tablet TAKE 1 TO 2 TABLETS BY MOUTH EVERY 6 HOURS NEEDED FOR MILD PAIN. DO NOT EXCEED 8 TABLETS (400MG) PER DAY. active Not Available Not Available No t Available meloxicam 7.5 mg tablet TAKE 1 TABLET BY MOUTH ONCE DAILY IN THE AFTERNOON WITH FOOD 10/06 completed Not Available Not Available Not Available alprazolam 0.5 mg tablet TAKE 1 TABLET BY MOUTH A ONE TIME DOSE 1 HOUR PRIOR TO INJECTION 12/11 completed Not Available Not Available Not Available pantoprazol e 40 mg tablet,deni yed release TAKE 1 TABLET BY MOUTH EVERY DAY active Not Available Not Available No t Available diclofenac sodium 50 mg tablet,deni yed release active Not Available Not Available Not Available epinephrine 0.3 mg/0.3 mL injection, auto-inject or active Not Available Not Available Not Available oxycodone 5 mg tablet TAKE 1 TO 2 TABLETS BY MOUTH EVERY 4 HOURS NEEDED FOR SEVERE PAIN active Not Available Not Available No t Available nitrofurant oin monohydrate /macrocryst als 100 mg capsule TAKE 1 CAPSULE BY MOUTH EVERY 12 HOURS FOR 7 DAYS 12/11 completed Not Available Not Available Not Available pregabalin 50 mg capsule active Not Available Not Available Not Available Myrbetriq 25 mg tablet,exte nded release active Not Available Not Available Not Available Breo Ellipta 200 mcg-25 mcg/dose powder for inhalation INHALE 1 PUFF BY MOUTH ONCE DAILY active Not Available Not Available No t Available Praluent Pen 75 mg/mL subcutaneou s pen injector active Not Available Not Available Not Available Vitals Date Recorded Body height Body mass index (BMI) Body weight Provider Name and Address Organization Details Last Updated DateTime 12/29/2023 162.56 cm 29.5 kg/m2 81205.89 g Justin Garcia DPT [address], [place], [address], [facility] 12/29/2023 16:02:29 Date Recorded Body height Body mass index (BMI) Body weight Provider Name and Address Organization Details Last Updated DateTime 01/06/2024 162.56 cm 30.2 kg/m2 95890.26 g SERGIO LUCIANO [facility] 01/06/2024 11:24:47 Date Recorded Body height Body mass index (BMI) Body weight Provider Name and Address Organization Details Last Updated DateTime 01/26/2024 162.56 cm 30.2 kg/m2 73045.26 g Valerie Cruz [facility] 01/26/2024 14:52:14 Date Recorded Body height Body mass index (BMI) Body weight Provider Name and Address Organization Details Last Updated DateTime 01/27/2024 162.56 cm 30.2 kg/m2 65756.26 g Justin Garcia DPT [address], [place], [address] 01/28/2024 07:46:02 Social History Question Answer Notes LastModified by Organizat ion Details LastModified Time Tobacco Smoking Status [facility] 10/07/2023 16:12:42 What Is Your Level Of Alcohol Consumption? None Information not available 10/07/2023 Do You Use Any Illicit Or Recreational Drugs? No Information not available 10/07/2023 Do You Or Have You Ever Used Any Other Forms Of Tobacco Or Nicotine? No Information not available 10/07/2023 Sex: Unknown Functional Status None recorded. Mental Status None recorded. Family History Nothing Reported. Medical History No medical history recorded. Gynecological HistoryNo gynecological history recorded. Obstetrics History GPAL:G 0 P 0 0 0 0 Past Encounters Encounter ID Performer Location Encounter Start Date Encounter Closed Date Diagnosis/Indication Diagnosis SNOMED-CT Code Diagnosis ICD10 Code [id number] RUFUS Gomez [address] [place] [address] 10/07/2023 15:48:02 11/03/2023 14:00:44 Osteoarthritis of left hip joint [id number] [facility] M16.12 [id number] MD Roxana Umanzor [address] [place], [place] [address] 12/12/2023 13:23:05 01/01/2024 15:35:18 Pain of left hip joint [id number] 96408 M25.552 Osteoarthr itis of left hip joint 1692595125 [facility] M16.12 [id number] MD Roxana Umanzor PT [address] [place] [address] 12/29/2023 15:08:24 12/29/2023 15:45:24 Osteoarthritis of hip 737531423 M16.12 [id number] Wolf Almaraz, ELKIN Penanielijah [address] [place] [address] 01/06/2024 11:03:47 02/04/2024 03:58:44 Osteoarthritis of left hip joint 4645734603 49052 M16.12 [id number] Christian Dickerson PA-C [place] [address] [place] [address] 01/26/2024 14:46:48 01/26/2024 16:45:57 History of total replacement of left hip joint 9256377291 932995 Z96.849 [id number] MD Roxana Umanzor PT [address] [place] [address] 01/27/2024 11:33:44 01/27/2024 12:06:02 Aftercare 033978241 Z47.1 Z96.044 [id number] Justin Garcia , DPT [facility] [address] [place] [address] 02/02/2024 16:28:51 02/02/2024 17:02:13 Aftercare [id number] Z47.1 Z96.642 Health Concerns Section Related Observation LastModified by Organization Detai ls LastModified Time None Recorded Concern Status LastModified by Organization Details LastModified Time None Recorded Advance Directives Directive None Recorded Payers Encounter Date Sequence Insurance Name Policy Number Policy Guzman Covered Member ID Guzman Member ID Guarantor Name 12/29/2023 1 [place] [employer] Leslie A Washut [id number] Leslie Washut 12/29/2023 2 [place] Leslie A Washut [id number] Leslie Washut 01/06/2024 1 [place] [employer] Leslie A Washut [id number] Leslie Washut 01/06/2024 2 [place] Leslie A Washut [id number] Leslie Washut 01/26/2024 1 [place] [employer] Leslie A Washut [id number] Leslie Washut 01/26/2024 2 [place] Leslie A Washut [id number] Leslie Washut 01/27/2024 1 [place] [employer] Leslie A Washut [id number] Leslie Washut 01/27/2024 2 [place] Leslie A Washut [id number] Leslie Washut 02/02/2024 1 [place] [employer] Leslie A Washut [id number] Leslie Washut 02/02/2024 2 [place] Leslie A Washut [id number] Leslie Washut Notes Date Note Type Note Provider Name and Address Organization Details Recorded Time 12/29/2023 text/html Patient is 73 ye ar old female, with chronic history of hip pain and OA. Presents today for prehab visit for scheduled MALIA on 01/20/24. Arrives today ambulating with out AD. Reviewed post-operative mobility and mechanics with appropriate assistive device. Has 12 steps at home with railings. Demonstrates good understanding of post-operative expectations, hip kit, and HEP. Current vocational status is Retired Functional limitations include restricted hip ROM, difficulty ambulating community distances, and pain navigating stairs. Patient goal is to return to walking w/o px. Justin Garcia, DPT [address], [place], [address], [place] [facility] 12/30/2023 10:11:13 01/26/2024 text/html I am seeing the patient today under the supervision of {{ Toni#}} who was available but who did not see the patient. HISTORY OF PRESENT ILLNESS The patient presents today for follow-up, now two weeks status post {{Left* Right}} total hip arthroplasty. Overall progressing nicely, happy with results. No significant complaints of pain.No neurovascular changes. Patient is starting outpatient physical therapy tomorrow. Continues with oxycodone and Tylenol for pain relief. She is on aspirin for DVT prophylaxis. Continues using a walker for ambulatory support. PAST MEDICAL/SURGICAL HISTORY Reviewed today, otherwise unchanged per intake sheet REVIEW OF SYSTEMS Systemic: No fever and no chills. Cardiovascular: No chest pain or discomfort. Pulmonary: No dyspnea. PHYSICAL FINDINGS General Appearance: Well developed. n no acute distress. Musculoskeletal System: Hips: Right Hip: Hip was not tender on palpation. No pain was elicited by active motion. No pain was elicited by passive motion. Lower Leg: General/bilateral: Calves of both lower legs were not tender on palpation. Neurological: Oriented to time, place, and person. Gait And Stance: An operative sided antalgic gait was observed with assistive device. Psychiatric: Mood was appropriate to the affect. Skin: Physical examination of the hip reveals the incision to be intact, no erythema or drainage, no evidence of infection. 4/5 strength, normal sensation. Contralateral side shows no warmth, erythema, soft tissue swelling, or effusion. TESTS X-rays ordered, obtained, and reviews today at [facility], two views, reveal maintained alignment of the prosthetic components, no fracture or dislocation,excelle nt interface ASSESSMENT Progressing nicely two weeks status post {{Left* Right}} total hip arthroplasty. PLAN Reviewed total hip precautions with the patient, who showed good understanding, and will continue to monitor for any evidence of infection, Follow-up in one month for re-evaluation, sooner if there is any complications. Christian Dickerson PA-C [address], [place], [address], [facility] 01/26/2024 16:45:56 01/27/2024 text/html Patient is 73 ye ar old female, with chronic history of hip pain and OA. Presents s/p MAILA, reporting mild pain and swelling in hip. Arrives today ambulating with RW, demonstrating antalgic gait mechanics. Received home care physical therapy and has 12 steps at home. Has been compliant with post-operative hip precautions. Current vocational status is retired Functional limitations include restricted hip ROM, difficulty ambulating community distances, and sleeping through the night. Patient goal is to... Justin Garcia DPT [address], [place], [address], [facility] 01/28/2024 07:49:21 02/02/2024 text/html Pt reports feeli ng a little better, able to ambulate w/ SPC. Small distances w/o cane at home. 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
--- OUTSIDE RECORDS SUMMARY | 2024-02-11 11:33 | XMS_ITS | Continuity of Care Document ---
Author Organization [facility] ter Address [address] [place] [id number]- Care Team Providers Care Flat Knitter Name Role Phone Bosotn Cohen MD, [facility] Primary Care Phys [facility] Encounter [facility] ACCT R [id number] Date(s): 01/13/24 - 01/15/[address] [address]- Discharge Disposition: A-Transfer VNA/Home Health Attending Physician: Kike Massey MD Admitting Physician: Kike Massey MD Referring Physician: Kike Massey MD Encounter Type: Disch IP Allergies, Adverse Reactions, Alerts Substance Criticality Severity [...] Date: 01/13/24 Status: Ordered Repeat number: 1 Acetaminophen Tablet 650 mg, Tablet, By Mouth, 01/15/24 9:00:00 AM EST Start Date: 01/15/24 Stop Date: 01/15/24 Status: Completed Repeat number: 1 Breo Ellipta 100 mcg-25 [...] 0 Refills, Maintenance, 01/13/24 10:07:00 AM EST, [facility], Partial fill upon patient request if [...] Date: 01/13/24 Status: Ordered Repeat number: 1 ondansetron 4 mg oral tablet 1 tablet = 4 mg, By Mouth, Every 8 hours, PRN Nausea & Vomiting, for 7 days, # 21 tablet, 0 Refills, Acute 01/20/24 10:07:00 AM EST, 01/13/24 10:07:00 AM EST, [facility], Partial fill upon patient request if the prescription is for a schedule II opioid drug., 160.02, cm, 01/13/24 7:37:00 EST, Height, 74.1, kg, 01/12/24 14:46:00 EST, Dry Weight Start Date: 01/13/24 Stop Date: 01/20/24 Status: Ordered Quantity: 21.0 Unit: tablet Repeat number: 1 oxyCODONE 5 mg oral tablet See Instructions, PRN, 1-2 tablets By Mouth Every 4 hours, # 84 tablet, Refills 0, Tot. Refills 0, Acute 01/20/24 8:00:00 AM EST, Pain , Severe, 01/13/24 10:06:00 AM EST, Instructions Replace Required Details, Route to Pharmacy Electronically, [facility], Partial fill upon patient request if the prescription is for a schedule II opioid drug., 160.02, cm, 01/13/24 7:37:00 EST, Height, 74.1, kg, 01/12/24 14:46:00 EST, Dry Weight Start Date: 01/13/24 Stop Date: 01/20/24 Status: Ordered Quantity: 84.0 Unit: tablet Repeat number: 1 OxyCODONE IR Tablet 5 mg, Tablet, By Mouth, Every 4 hours, PRN for Pain , Moderate, Routine, 01/12/24 11:05:00 AM EST Start Date: 01/12/24 Stop Date: 01/15/24 Status: Discontinued Repeat number: 1 pantoprazole 40 mg oral [...] Date: 04/01/12 Status: Ordered Repeat number: 1 traMADol 50 mg oral tablet See Instructions, PRN Pain , Mild, 1-2 tablets By Mouth Every 6 hours not to exceed 400 mg/day, # 56 tablet, 0 Refills, Acute 01/20/24 8:00:00 AM EST, 01/13/24 10:07:00 AM EST, Tablet, [facility], Partial fill upon patient request if the prescription is for a schedule II opioid drug.,160.02, cm, 01/13/24 7:37:00 EST, Height, 74.1, kg, 01/12/24 14:46:00 EST, Dry Weight Start Date: 01/13/24 Stop Date: 01/20/24 Status: Ordered Quantity: 56.0 Unit: tablet Repeat number: 1 Problem List Condition Confirmation Course Effective Dates Status H ealth Status Informant Allergic rhinitis Confirmed Active Fibromyalgia Confirmed Active Hyperlipidemia Confirmed Active Severe persistent asthma Confirmed Active Statin intolerance Confirmed Active Results Radiology Reports * Exam Date Time Procedure Performing Provider Status 01/12/24 11:13 AM C-Arm < 1 Hour Vianca Nam; Au th (Verified) Notes: (C-Arm < 1 Hour) Reason For Exam: osteoarthritis, left total hip replacement anterior approach RESULT: C-Arm < 1 Hour Pelvis 1 or 2 Views, C-Arm < 1 Hour INDICATION: Reason: OA lt hip, lt total hip arthroplasty COMPARISONS: None TECHNIQUE: Fluoroscopy support was provided. There was no radiologist in attendance. FLUOROSCOPY TIME: 9.7 seconds EXPOSURE: 0.6644 Gycm2 (Dose Area Product) TECHNOLOGIST TIME: 20 minutes FINDINGS: 10 images were submitted showing left hip arthroplasty. Please refer to operative note for full details. IMPRESSION: See above. WSN: [id number] Ordering Physician: Kike Massey Dictated By: Tony Red MD Dictated Date/Time: 01/12/24 3:52 pm Reviewed By: Tony Red MD Signed By: Tony Red MD Signed Date/Time: 01/12/24 3:52 pm Transcribed By: NEERAJ Transcribed Date/Time: 01/12/24 3:52 pm * Exam Date Time Procedure Performing Provider Status 01/12/24 11:13 AM Pelvis 1 or 2 Views Vianca Nam (Verified) Notes: (Pelvis 1 or 2 Views) Reason For Exam: OA lt hip, lt total hip arthroplasty RESULT: Pelvis 1 or 2 Views Pelvis 1 or 2 Views, C-Arm < 1 Hour INDICATION: Reason: OA lt hip, lt total hip arthroplasty COMPARISONS: None TECHNIQUE: Fluoroscopy support was provided. There was no radiologist in attendance. FLUOROSCOPY TIME: 9.7 seconds EXPOSURE: 0.6644 Gycm2 (Dose Area Product) TECHNOLOGIST TIME: 20 minutes FINDINGS: 10 images were submitted showing left hip arthroplasty. Please refer to operative note for full details. IMPRESSION: See above. WSN: [id number] Ordering Physician: Kike Massey Dictated By: Tony Red MD Dictated Date/Time: 01/12/24 3:52 pm Reviewed By: Tony Red MD Signed By: Tony Red MD Signed Date/Time: 01/12/24 3:52 pm Transcribed By: NEERAJ Transcribed Date/Time: 01/12/24 3:52 pm * Exam Date Time Procedure Performing Provider Status 01/12/24 12:45 PM Pelvis 1 or 2 Views Jeison Bruce (Verified) Notes: (Pelvis 1 or 2 Views) Reason For Exam: Postop Prosthesis RESULT: Pelvis 1 or 2 Views Pelvis 1 or 2 Views Reason: Postop Prosthesis; Clinical Question(s): Status of Hip Prosthesis; Special Instructions: LEFT Hip - To be done in PACU COMPARISON: 08/07/2023 FINDINGS: Status post left total hip arthroplasty. Components demonstrate expected positions and alignment without evidence of loosening. No fracture or dislocation. Bone mineralization is normal. The right hip and the included portions of the SI joints are unremarkable. Soft tissue gas around the left hip consistent with postoperative status. IMPRESSION: Status post left total hip arthroplasty. WSN: [id number] Ordering Physician: Rowan Martinez Dictated By: Stefani Cerrato MD Dictated Date/Time: 01/12/24 2:07 pm Reviewed By: Stefani Cerrato MD Signed By: Stefani Cerrato MD Signed Date/Time: 01/12/24 2:07 pm Transcribed By: NEERAJ Transcribed Date/Time: 01/12/24 2:06 pm Vital Signs Most recent to oldest [Reference Range]: 1 2 3 Height 160.02 cm (01/15/24 6:37 AM) 160.02 cm (01/15/24 3:39 AM) 160.02 cm (01/14/24 11:58 PM) Weight 74.1 kg (01/12/24 2:46 PM) 79.0 kg (01/12/24 8:34 AM) 74.1 kg (01/01/24 11:16 AM) Oxygen Saturation [94-100 %] 99 % (01/15/24 6:37 AM) 95 % (01/15/24 3:39 AM) 95 % (01/14/24 11:58 PM) Pulse Rate [55-90 bpm] 71 bpm (01/15/24 6:37 AM) 72 bpm (01/15/24 3:39 AM) 85 bpm (01/14/24 11:58 PM) Body Mass Index [18.5-24.99 kg/m2] 28.94 kg/m2 *H* (01/12/24 2:46 PM) 30.85 kg/m2 *>HHI* (01/12/24 8:34 AM) 28.94 kg/m2 *H* (01/01/24 11:16 AM) Blood Pressure [90-138/55-84 mm Hg] 124/63mm Hg (01/15/24 6:37 AM) 107/46mm Hg (01/15/24 3:39 AM) 91/36mm Hg (01/14/24 11:58 PM) Respiratory Rate [16-30 br/min] 18 br/min (01/15/24 12:50 PM) 18 br/min (01/15/24 10:10 AM) 18 br/min (01/15/24 10:10 AM) Temperature [96.8-100.4 DegF] 98.7 DegF (01/15/24 6:37 AM) 98.1 DegF (01/15/24 3:39 AM) 98.5 DegF (01/14/24 11:58 PM) Liters per Minute 2 L/min (01/12/24 1:00 PM) 2 L/min (01/12/24 11:45 AM) 6 L/min (01/12/24 11:30 AM) Mode of Delivery (Oxygen) Room air (01/15/24 6:37 AM) Room air (01/15/24 3:39 AM) Room air (01/14/24 11:58 PM) Blood pressure sites Arm, left (01/15/24 6:37 AM) Arm, left (01/14/24 4:50 PM) Arm, left (01/14/24 11:47 AM) Temperature Route Oral (01/15/24 6:37 AM) Oral (01/15/24 3:39 AM) Oral (01/14/24 11:58 PM) Dry Weight 74.1 kg (01/12/24 2:46 PM) Weight Obtained Via Standing scale (01/12/24 8:34 AM) Social History Social History Type Response Tobacco Other: Former smoker . Sex Sex Representation Female (finding) History and physical note * Event Display: History and Physical Hospital Authored Date: [id number] * Rufina GRANGER, Wolf R: MODIFY Event Display: History and Physical Hospital Authored Date: [id number] SURGICAL HISTORY AND PHYSICAL DATE: 01/12/2024 PRIMARY DIAGNOSIS: Osteoarthritis of the left hip. REASON FOR ADMISSION: The patient is being admitted for an anterior left total hip arthroplasty with Dr. Kike Massey on 01/12/2024. HISTORY OF PRESENT ILLNESS: Ms. Erazo is a 73-year-old female, who presents today [...] hip. 2. Allergic rhinitis. 3. Asthma. 4. Hypercholesterolemia. 5. Eczema. 6. Fibromyalgia. 7. Low back [...] ankle plantarflexion and ankle dorsiflexion. There is normalsensation in bilateral lower extremities. PREOPERATIVE DIAGNOSTIC DATA: [...] for steroid stress dosing by Anesthesia. They diddiscuss a possible outcome of postoperative rehabilitation. She will receive IV TXA and be placed on aspirin postoperatively for deep vein thrombosis prophylaxis. She will not receive Celebrex due toher SULFA ALLERGY. She states that she does [...] arthroplasty with Dr. Massey. CONTACTS: Her , Stefani, at [phone]. A backup phone number is for Seng, . Prescriptions given at the time of the history and physical today include none. She will require prescription for aspirin, pantoprazole, ondansetron and pain medication at the time of discharge. She already has Colace at home and meloxicam at home. Dictated by: Wolf Almaraz N.P. Signing Clinician: Kike Massey M.D. Dictated: 01/06/2024 01:26:48 Transcribed: 08:47:16 AM Transcribed by: CHEVY DocID: [id number] PRELIMINARY REPORT UNLESS MANUALLY/ELECTRONICALLY SIGNED * Rufina GRANGER, Wolf Baker: PERFORM Event Display: History and Physical Hospital Authored Date: Patient was seen by medicine preop team and she was deemed to be a low cardiovascular and a low pulmonary risk. They did recommend that patient be evaluated by anesthesia for possible steroid stress dose. EKG reviewed and showed NSR with a HR of 79. Labs reviewed and satisfactory for surgery. LoG4cnda 6.1 with a GFR of 79. Cardiology * Event Display: Cardiac Rhythm Strips Authored Date: Hospital Progress note * Heaven Segal RN: PERFORM, SIGN, VERIFY Event Display: Progress Note Hospital Authored Date: [id number] Patient: JOSE ERAZO [facility]: [id number] Age: 73 years Sex: Female : 1950 Associated Diagnoses: None Author: Heaven Segal RN Findings Problem Related to Alteration in Musculoskeletal : Alteration in Musculoskeletal Func/new 01/14/2024 23:00 EST Alteration in Musculoskeletal Related to Orthopedic Procedure, Total joint replacement Goals & Outcomes, Musculoskeletal Affected extremity will maintain color/motion/sensation, Pt able to perform ADL's to best of ability, Pt demonstrates precautions/exercise/ transfers per protocol, Pt will ambulate safely with assistive device, Pt will be free from complications of immobility, Pt will demonstrate ability to participate in ADL's, Pt will report acceptable level of comfort/painrelief, Resolved problem, Goals/Outcomes met Interventions, Musculoskeletal Monitor patients ambulation status, monitor Color/Motion/Sensation, Assist with repositioning, Encourage deep breathing & coughing exercises, Notify MD immediately if tissue perfusion deteriorates, Obtain assistive devices as needed, Teach & Encourage use of Incentive spirometer, Teach Pt/caregiver on ADL's & adaptive equipment, Teach Pt/caregiver on exercises, Teach pt/caregiver on use of pain scale, Teach Pt/caregiver complications of immobility, Teach Pt/caregiver techniques to increase mobility, Teach Pt/caregiver on safety precautions, Incision care as ordered BH Goals/Interventions, Musculoskeletal Yes Musculoskeletal, Problem Start 01/12/2024 15:32 Reviewed Plan with, Musculoskeletal Patient Patient Progression, Musculoskeletal Pt progressing according to plan . Evaluation P-as per musculoskeletal plan of care I-as per updated plan of care E- Patient is alert and oriented x4, POD [address] Massey. Her surgical incision is an aquacel that is clean, dry and intact. She denies any nausea or dizziness with therapy this morning.She was cleared for discharge home by OT/PT with services from [facility]. She is voiding in the BR, has had a formed bowel movement this morning 01/13. One assist with a walker. Pain well controlled wtih oxycodone 5mg po q 4 hours she rates as tolerable . Reviewed discharge instructions with patient who verbalized understanding. Medications picked up at pharmacy yesterday. IV taken out withoutcomplication.. * BrothKike siddiqui MD T: SIGN BrothKike siddiqui MD T: SIGN, SIGN, VERIFY Event Display: Progress Note Hospital Authored Date: Patient: JOSE ERAZO Age: 73 years Sex: Female : 1950 Associated Diagnoses: None Author: Evelio GRANGER, Teri Gibson Ortho POD 3 s/p Left MALIA S: The patient denies any SOB/CP, N/V. Voiding spontaneously. Pain well controlled on current regimen Tylenol 650mg PO, Oxycodone 5-10mg PO q 4 hrs, and tramadol 50-100mg PO q 6 hrs. Patient was ableto ambulate 30 ft with PT. Patient reported yesterday afternoon she had multiple episodes of diarrhea and felt nauseous and required an additional night stay. Patient was concerned she had cdiff, patient reassured she was given multiple bowel medications yesterday and previous day as she had requested them, she has no fevers, no white count and no abdominal pain. Patient reported she felt better this morning and feels up to be able to go home today. O: Vitals Temperature 98.7 (06:38) Systolic Blood Pressure 124 (06:38) Diastolic Blood Pressure 63 (06:38) Pulse 71 (06:38) SpO2 99 (06:38) Respiratory Rate 18 (06:38) Last 24 Hours Basic Metabolic Panel: Hematology: Sodium: 134 mmol/L (01/15/24) Hgb: 8.9 Gm/dL (01/15/24) Potassium (POC): 4.8 mmol/L (01/15/24) Hemoglobin A1C (Monitoring): ------ Phosphorus: ------ WBC: 7.3 k/mm3 (01/15/24) Magnesium: ------ Platelets: 233 k/mm3 (01/15/24) BUN (POC) POC Cartridge: 12 mg/dL (01/15/24) INR Level: ------ Creatinine-Blood: 0.87 mg/dL (01/15/24) Creatinine Clearance: ------ Additional - Last 24 Hours Abs. NRBC: 0.0 k/mm3 (01/15/24) Anion Gap: 9 (01/15/24) Bicarbonate Level: 26 mmol/L (01/15/24) BUN: BUN (01/15/24) Chloride: 99 mmol/L (01/15/24) Creatinine, Blood: Creatinine, Blood (01/15/24) Est Creatinine Clearance: 48.35 (01/15/24) Estimated GFR Creatinine: 71 ML/MIN/1.73 M2 (01/15/24) Hct: 26.7 % (01/15/24) MCH: 29.0 pg (01/15/24) MCHC: 33.3 Gm/dL (01/15/24) MCV: 87.0 femtoliters (01/15/24) MPV: 8.7 femtoliters (01/15/24) Nucleated RBC (Automated): 0.0 #/100 WBC'S (01/15/24) RBC: 3.07 m/mm3 (01/15/24) RDW-SD: 42.6 femtoliters (01/15/24) General: alert, lucid, in NAD Heart: RRR, normal S1S2 Lungs: CTAB Abdomen: soft NT BS active Neurovascular: calves soft NT, +DF/+PF Dressing: CDI PAST MEDICAL HISTORY: 1. Osteoarthritis of the left hip. 2. Allergic rhinitis. 3. Asthma. 4. Hypercholesterolemia. 5. Eczema. 6. Fibromyalgia. 7. Low back pain. 8. Anaphylaxis with Latex A/P: 73 year old female with history above of now s/p Left MALIA POD 3 Pain: Reports pain well controlled this morning continue current regimen Tylenol, PRN oxycodone andtramadol. Asthma: Well controlled continue Breo Ellipta and PRN albuterol Constipation: Resolved now fibromyalgia: Stable continue Lyrica Transient rise in creatinine: resolved now WNL 0.8 DVT prophylaxis: ASA EC 325 mg PO BID WBAT/ PT/OT/HIP PRECAUTIONS Discharge home pending PT/OT clearance Case discussed with Dr. Kike Massey * Elsa Vega RN: VERIFY, PERFORM, SIGN Event Display: Progress Note Hospital Authored Date: Patient: JOSE ERAZO Age: 73 years Sex: Female : 1950 Associated Diagnoses: None Author: Elsa Vega RN Findings Problem Related to Alteration in Musculoskeletal : Alteration in Musculoskeletal Func/new 01/14/2024 23:00 EST Alteration in Musculoskeletal Related to Orthopedic Procedure, Total joint replacement Goals & Outcomes, Musculoskeletal Affected extremity will maintain color/motion/sensation, Pt able to perform ADL's to best of ability, Pt demonstrates precautions/exercise/ transfers per protocol, Pt will ambulate safely with assistive device, Pt will be free from complications of immobility, Pt will demonstrate ability to participate in ADL's, Pt will report acceptable level of comfort/painrelief, Resolved problem, Goals/Outcomes met Interventions, Musculoskeletal Monitor patients ambulation status, monitor Color/Motion/Sensation, Assist with repositioning, Encourage deep breathing & coughing exercises, Notify MD immediately if tissue perfusion deteriorates, Obtain assistive devices as needed, Teach & Encourage use of Incentive spirometer, Teach Pt/caregiver on ADL's & adaptive equipment, Teach Pt/caregiver on exercises, Teach pt/caregiver on use of pain scale, Teach Pt/caregiver complications of immobility, Teach Pt/caregiver techniques to increase mobility, Teach Pt/caregiver on safety precautions, Incision care as ordered BH Goals/Interventions, Musculoskeletal Yes Musculoskeletal, Problem Start 01/12/2024 15:32 Reviewed Plan with, Musculoskeletal Patient Patient Progression, Musculoskeletal Pt progressing according to plan . Nursing Data Vital Signs : VITAL SIGNS SECTION 01/14/2024 23:58 EST Early Warning Score 4.00 01/14/2024 23:58 EST Early Warning Score 4.00 01/14/2024 23:58 EST Early Warning Score 3.00 01/14/2024 23:58 EST Temperature 98.5 DegF Temperature Route Oral Pulse Rate 85 bpm Respiratory Rate 18 br/min Systolic Blood Pressure 91 mm Hg Diastolic Blood Pressure 36 mm Hg L Mean Arterial Pressure 54 mm Hg Pulse Pressure 55 mm Hg Oxygen Saturation 95 % Mode of Delivery (Oxygen) Room air 01/14/2024 22:49 EST Respiratory Rate Not Done: Patient Sleeping (Not Done) 01/14/2024 22:48 EST Respiratory Rate 18 br/min 01/14/2024 21:50 EST Early Warning Score 3.00 01/14/2024 21:49 EST Respiratory Rate 18 br/min 01/14/2024 20:18 EST Early Warning Score 3.00 01/14/2024 19:33 EST Temperature 98.8 DegF Temperature Route Oral Pulse Rate 88 bpm Respiratory Rate 18 br/min Systolic Blood Pressure 131 mm Hg Diastolic Blood Pressure 58 mm Hg Mean Arterial Pressure 82 mm Hg Pulse Pressure 73 mm Hg Oxygen Saturation 95 % Mode of Delivery (Oxygen) Room air 01/14/2024 18:33 EST Respiratory Rate 18 br/min . Narrative/Incidental A&Ox4 S/P L AHR on 01/[address] Massey. +CMS, +df/pf, +pp, L hip Aquacel dressing c/d/i. Pt OOB 1 assist w/ rolling walker. Lungs clear to auscultation on RA, pt denies SOB, educated on use of IS & pt demonstrated understanding. Pt voiding yellow urine in the bathroom, pt reports last BM01/13, reported multiple loose stools during the day, held bowel meds, +BS, abdomen s/nt/nd, pt tolera ting regular diet, pt denies n/v. Pt denies CP, pt is on ASA for DVT prophylaxis, Cboots in place bilaterally.Pt reporting 5/10 pain, managing w/ scheduled Tylenol & PRN Oxy 5mg Pt is in a centrella bed in the lowest/locked position w/ call mccormick in reach, pt educated on use of call mccormick & demonstrated understanding. Plan of care is on going. P: alterations in musculoskeletal I: see interventions above E: S/P L AHR on 01/[address] Massey. +CMS, +df/pf, +pp, L hip Aquacel dressing c/d/i. Pt OOB 1 assist w/ rolling walker. Pt reporting 5/10 pain, managing w/ scheduled Tylenol & PRN Oxy 5mg . Discharge Information Case Management Discharge Plan : Case Management Discharge Plan Data 01/14/2024 9:55 EST Discharge Level of Care at Discharge Not Done: Assessed, No Action Needed (Not Done) Rehabilitation Discharge : Rehab Discharge Index 01/14/2024 13:27 EST Transfer tub/shower OT Plan Supervision 01/14/2024 8:32 EST Transfer tub/shower OT Plan Supervision 01/13/2024 16:26 EST Transfer tub/shower OT Plan Supervision 01/13/2024 8:42 EST Walker: distance 20-50 01/13/2024 8:20 EST Transfer tub/shower OT Plan Supervision 01/12/2024 14:54 EST Comments on treatment indicated OT to address ADLs, functional mobility/transfers, safety/fall prevention, balance, pain mgmt Full chart review completed Yes Hospital course s/p anterior L MALIA with Dr. Massey on 01/12/24 Transfer tub/shower OT Plan Supervision 01/12/2024 14:48 EST Comments on treatment indicated 73 y/o F admitted for an anterior left total hip arthroplasty with Dr. Massey on 01/12/2024. PT for balance, strengthening, bed mobility, transfers with RW, amb with RW, stairs. Rec home with services. Walker: distance 20-50 Distance pt will ambulate 150' with RW Full chart review completed Yes Plan of care PT Gait training, Transfer training, Therapeutic exercise, Functional Activities, Balance training, Neuromuscular education Note * Heaven Segal RN: PERFORM Event Display: Discharge/Transfer Note Hospital Authored Date: [id number] Nursing Discharge Note Entered On: 01/15/2024 13:13 EST Performed On: 01/15/2024 13:12 EST by Heaven Segal RN Nursing Discharge Note 2 Discharge Time : 01/15/2024 13:13 EST Discharge Level of Care at Discharge : Homehealth/VNA Patient Left Unit Via : Wheelchair Patient Accompanied Off Unit with : Other: transport DC Instructions Provided & Signed by Pt : Yes Patient Understands D/C Instructions : Yes Patient Instructions Discharge Signed : Yes Did Pt have Specialty Bed or Wound Vac : No Heaven Segal RN - 01/15/2024 13:12 EST * Erlinda Lloyd RN: PERFORM Event Display: Patient Education/Instruction Authored Date: [id number] Inpatient Adult Discharge Instructions. [address] [address] Name: JOSE ERAZO : 1950?? Visit: 01/13/2024 17:48?? Current Date: 01/15/2024 10:17 ?? Account: [id number]?? Inpatient Adult Discharge Instructions We would like to thank you for allowing us to assist you with your healthcare needs. The following includes patient education materials and information regarding your injury/illness. Our entire staffstrives to provide an excellent experience for our patients and their families. PLEASE ENSURE YOU FOLLOW-UP PER THE INSTRUCTIONS BELOW! ?? YOUR OPINION IS IMPORTANT TO US! Please complete the survey you may receive by mail or email. Your feedback will be used to make improvements to the healthcare experiences of our patients and their families. Surveys are administered by [employer] ?? If further treatment with your primary care physician or another doctor is recommended, it is important for you to keep the appointment. Call your primary care physician or return to the Emergency Department immediately if your condition worsens, fails to improve, or new symptoms develop. If you need to find a doctor, you can call [facility] 56.com Link for a referral at [phone] or toll free at [phone]) or log in to [email or web address].. ?? [facility], in keeping with [facility] guidance, no longer requires face masks for staff, patientsor visitors in most situations. Similiar to time spent indoors at other locations, there is the chance that you were exposed to repiratory viruses during your time with us (such as flu or COVID-19). If you develop symptoms concerning for a viral respiratory infection, please seek testing (and treatment if indicated) from your medical provider or home test kit. ?? You can view and manage your care through the patient portal or by using a health care justyn of your choosing. [employer] is a website that allows you to securely view your medical information including your hospital discharge summary, office visit summaries, medications and follow-up visits. You can also request appointments, renew medications, and request access to your medical information using a health care justyn of your choosing, or just ask a question. You can enroll at [email or web address] or register during your next office visit. You have been discharged from [facility], Patient Care Unit: SW7??. If you have any questions regarding these instructions, including results of studies pending, afteryou leave, please call us and we will be happy to assist you 23/09. [facility] Your Care Team Attending Physician Bryson CROUCH, Kike Mendez?? Consulting Providers Kike Massey MD?? Discharging Providers Evelio GRANGER, Teri Gibson Your Diagnosis Osteoarthritis of hip, left Tests Performed Below is a partial list of the tests performed during your hospitalization. You may have had other tests and procedures not included in this list. Please discuss all test results with your provider. BUN CBC Creatinine Electrolytes XR C-Arm < 1 Hour XR Pelvis 1 or 2 Views BUN?? CBC?? Creatinine?? Electrolytes?? Pathology Tissue Request ()?? C-Arm < 1 Hour?? Pelvis 1 or 2 Views (XR Pelvis 1 or 2 Views)?? Primary Care Provider Gifty Sterling MD? Advance Directive Health Care Proxy on File Yes - Health Care Proxy Discharge Vitals Temperature: 98.7 DegF Height: 160.02 cm Pulse Rate: 71 bpm Weight: 74.1 kg Respiratory Rate: 18 br/min Body Mass Index:??28.94 kg/m2??High Systolic Blood Pressure: 124 mm Hg Body surface area: 1.81 Diastolic Blood Pressure: 63 mm Hg ?? Oxygen Saturation: 99 % ?? Studies Pending All studies ordered during this hospital stay have been completed unless listed below. Please discuss all pending results with your provider listed above in these instructions. ?? BUN?? CBC?? Creatinine?? Electrolytes?? What to do next Instructions From Your Doctor ?? Orders?? Unit Discharge Criteria Met, ??01/15/24 7:31:00 EST?? Prescriptions??, ??01/15/24 7:31:00 EST , ??01/14/24 10:42:00 EST , ??01/13/24 10:11:00 EST?? You Need to Schedule the Following Appointments Follow Up with??[facility] When:??Within 1 to 2 weeks Why: Please keep all follow-ups as arranged with Dr. Massey?? Where: [address] [place] [address] [place] [address]- Discharge Medications JOSE ERAZO :1950 Visit Date:01/13/2024 Medications: Please continue your medications until treatment is completed or stopped by your provider. Medications not listed below should be discontinued. Discuss any questions related to medications with your provider. What How Much When Instructions Next Dose Unchanged Acetaminophen (acetaminophen 325 mg oral tablet) 650 Milligram Oral Every 6 hours may take OTC not to exceed 3000 mg/ day ?? 01/14 @ Unchanged Albuterol (ProAir HFA) 2 puff(s) Inhalation 4 times a day Per home regimen Unchanged Aspirin (Ecotrin 325 mg oral delayed release tablet) 1 tab(s) Oral Twice a day Duration: 30 Days Pickup at [place] [address] 01/14 @ 9pm *Prevents a blood clot Unchanged Docusate (docusate sodium 100 mg oral tablet) 1 tab(s) Oral Daily as needed for for constipation As needed OTC for constipation Unchanged fluticasone-vilanterol (Breo Ellipta 100 mcg-25 mcg/ inh inhalation powder) 1 puff(s) Inhalation Daily 01/15 @ 9am Unchanged Loratadine (Claritin Tablet) 10 Milligram Oral Daily 01/15 @ 9am Unchanged Milk of Magnesia (MOM Liquid) 30 Milliliter Oral Daily as needed for Constipation As needed OTC for constipation Unchanged Ondansetron (ondansetron 4 mg oral tablet) 1 tab(s) Oral Every 8 hours as needed for Nausea & Vomiting Duration: 7 Days Pickup at [place] [address] As needed for nausea Unchanged Oxycodone (oxyCODONE 5 mg oral tablet) See instructions 1-2 tablets By Mouth Every 4 hours, As needed for Pain , Severe ?? Pickup at [place] [address] 01/14 @ *STRONG NARCOTIC *DO NOT TAKE WITH TRAMADOL Unchanged Pantoprazole (pantoprazole 40 mg oral delayed release tablet) 40 Milligram Oral Daily Duration: 30 Days Pickup at [place] [address] 01/15 @ 9am Unchanged Polyethylene Glycol 3350 (MiraLax oral powder for reconstitution) 17 gram Oral Daily As needed OTC for constipation Unchanged Tramadol (traMADol 50 mg oral tablet) See instructions 1-2 tablets By Mouth Every 6 hours not to exceed 400 mg/ day, As needed for Pain , Mild ?? Pickup at [place] [address] As needed for mild pain *DO NOT TAKE WITH OXYCODONE Pharmacy Information [facility]: [address] [place], [place] [id number] [phone] Prescription Given During Visit Aspirin (Ecotrin 325 mg oral delayed release tablet) - 1 tablet = 325 mg, By Mouth, 2 times a day, # 60 tablet, 0 Refills, [facility], [address] [place] [address] [phone]?? Ondansetron (ondansetron 4 mg oral tablet) - 1 tablet = 4 mg, By Mouth, Every 8 hours, # 21 tablet,0 Refills, [address] [address] [phone]?? Oxycodone (oxyCODONE 5 mg oral tablet) - , # 84 tablet, 0 Refills, 1-2 tablets By Mouth Every 4 hours, [place] [address] [phone]?? Pantoprazole (pantoprazole 40 mg oral delayed release tablet) - 40 mg, By Mouth, Daily, # 30 tablet, 0 Refills, [address] [address] [phone]?? Tramadol (traMADol 50 mg oral tablet) - , # 56 tablet, 0 Refills, 1-2 tablets By Mouth Every 6 hoursnot to exceed 400 mg/day, [address] [address] [phone]?? Laboratory Results Below is a partial list of the most recent Laboratory test results done prior to this discharge. You may have had other tests and procedures not included in this list. Please discuss all test resultswith your provider. Est Creatinine Clearance - 48.35 mL/min (01/15/2024) [id number] (01/12/2024) ? ?Surgical Pathology - Patient Name: KACEY JOSE
Amarilys karimi
Patient : 1950 (Age: 73)
CollectionDate: 01/12/2024
Accession Date: 01/12/2024
Sign Out Date: 01/13/2024

Tissue Source:
1:LEFT FEMORAL HEAD

Final Diagnosis:
Femoralhead, left, replacement:
- Femoral head with degenerative changes of articularcartilaginous surface and eburnation consistent with severe osteoarthritis (gross examination).

Primary Pathologist:NAVIN CAPELLAN M.D.
electronically signed out by: NAVIN CAPELLAN M.D. / [facility]

Clinical History:
Osteoarthritis left hip

Gross Description:
Labeled left femoral head . Received in formalin is a 5.0 x 4.7 x 2.9 cm femoral head in continuity with 1.0 cm of femoral neck. The articular surface ranges from cerda-red and roughened to pink-yellow and eburnated. The specimen is sectioned revealing yellow-red, trabecular bone with purple-watkins to pale yellow sclerosis along with evidence of a rodding procedure. No sections are submitted. Gross only. (VN)*

Phone #: [phone], On-Call Pathologist: [id number] BUN (01/15/2024) ???BUN - 12 mg/dL CBC (01/15/2024) ???WBC - 7.3 k/mm3???RBC - 3.07 m/mm3???Hgb - 8.9 Gm/dL???Hct - 26.7 %???MCV - 87.0 femtoliters???MCH - 29.0 pg???MCHC - 33.3 Gm/dL???Platelet Count - 233 k/mm3???RDW-SD - 42.6 femtoliters???MPV - 8.7 femtoliters???Nucleated RBC (Automated) - 0.0 #/100 WBC'S???Abs. NRBC - 0.0 k/mm3 Creatinine (01/15/2024) ???Creatinine-Blood - 0.87 mg/dL???Estimated GFR Creatinine - 71 ML/MIN/1.73 M2 Electrolytes (01/15/2024) ???Sodium - 134 mmol/L???Potassium - 4.8 mmol/L???Chloride - 99 mmol/L???Bicarbonate Level - 26 mmol/L???Anion Gap - 9 You will be contacted within 72 hours with your results. Allergies (NKA means No Known Allergies) Benadryl??(rash) Cats??(hives asthma) Dogs??(hives asthma) Dust??(hives asthma) Fish??(anaphylatic, perch) Latex??(blistering all over breathing problem) Mold??(rash hives asthma) Nickel Pollen??(hives asthma) Xyzal penicillins??(rash) sulfa drugs??(hives rash) Problems Active Problems??(5) Allergic rhinitis?? Fibromyalgia?? Hyperlipidemia?? Severe persistent asthma?? Statin intolerance?? Education Materials Below is the list of Educational Leaflet Providered with your Discharge Instructions. Valuables and Belongings I fully understand and agree that [facility] accepts no responsibility for all my personal property including clothing, toilet articles, radios, jewelry, dentures, hearing aids, rings, money, or any other property that is in my possession or is brought to me after admission. I understand certain valuables may be placed in a hospital safe for a short period of time. I understand that the hospital is not liable for loss or damage due to accident, fire, or other natural occurrence while said property is in the safe. I accept full responsibility for any personal property that I keep with me, and will not hold the hospital responsible in case of loss or disappearance. I acknowledge that i have been encouraged to send valuables and belongings home. ?? Review of Valuable and Belonging List: With patient Possessions released to: to pacu / locker Date for Pt to Sign Valuables/Belongings: 01/12/24 17:16:00 ?? Other Discharge Information ? Pulmonary Rehab Status?? Pulmonary Rehab Discharge Status?? Respiratory Rate: 18 br/min ? Common Emergency Awareness Tips IS IT A STROKE? Act FAST and Check for these signs: FACE Does the face look uneven? ARM Does one arm drift down? SPEECH Does their speech sound strange? TIME Call at any sign of stroke ?? Heart Attack Signs Chest discomfort: Most heart attacks involve discomfort in the center of the chest and lasts more than a few minutes, or goes away and comes back. It can feel like uncomfortable pressure, squeezing, fullness or pain. Discomfort in upper body: Symptoms can include pain or discomfort in one or both arms, back, neck, jaw or stomach. Shortness of breath: With or without discomfort. Other signs: Breaking out in a cold sweat, nausea, or lightheaded. Remember, MINUTES DO MATTER. If you experience any of these heart attack warning signs, call to get immediate medical attention! ?? Smoking can increase your chances of developing chronic health problems and can cause harmful effects to other family members in your house. If you smoke, you are strongly encouraged to quit. Please call [facility] 56.com Link at [phone] or [phone]-[email or web address] ([phone]) or log in to [email or web address] for referrals to smoking cessation programs. ?? 375 Suicide & Crisis Lifeline is available 23/09 if you or someone you know needs to find a reason to keep living. By calling 597 you'll be connected to a skilled, trained counselor at a crisis center in your area. INPATIENT DISCHARGE INSTRUCTIONS SIGNATURE JOSE WHITE Location:[facility] Registration Date and Time:01/13/2024 17:48 EST Primary Care Physician: Boston Cohen MD , [facility], Attending Physician: Bryson CROUCH, Kike Mendez, I JOSE ERAZO, have received the above patient education materials/instructions and have verbalized understanding. If ambulance or transport services are being used I further acknowledge being given a choice of service. ?? If you need to contact me, please call me at this number: . Patient/Sanitation Manager Name: Patient/Sanitation Manager Signature: Relationship to Patient: Witness Name/Signature: Date: * Erlinda Lloyd RN: PERFORM Event Display: Patient Education Leaflets Authored Date: [id number] Oxycodone ?? [id number] Oxycodone Brand Name(s): Oxaydo??, Oxycontin??, Roxicodone??, Roxybond??, Xtampza?? ER, Combunox?? (as a combination product containing Ibuprofen, Oxycodone), Narvox?? (as a combination product containing Acetaminophen, Oxycodone), Oxycet?? (as a combination product containing Acetaminophen, Oxycodone), Percocet?? (as a combination product containing Acetaminophen, Oxycodone), Percodan?? (as a combination product containing Aspirin, Oxycodone), Roxicet?? (as a combination product containing Acetaminophen, Oxycodone), Roxilox?? (as a combination product containing Acetaminophen, Oxycodone), Roxiprin?? (as a combination product containing Aspirin, Oxycodone), Targiniq?? ER (as a combination product containing naloxone, oxycodone), Troxyca ER?? (as a combination product containing Naltrexone, Oxycodone), Tylox?? (as a combination product containing Acetaminophen, Oxycodone), Xartemis XR?? (as a combination product containing Acetaminophen, Oxycodone); also available generically ?? IMPORTANT WARNING: Oxycodone may be habit-forming. Take oxycodone exactly as directed. Do not take more of it, take itmore often, or take it in a different way than directed by your doctor. While taking oxycodone, discuss with your healthcare provider your pain treatment goals, length of treatment, and other ways tomanage your pain. Tell your doctor if you or anyone in your family drinks or has ever drunk large amounts of alcohol, uses or has ever used street drugs, or has overused prescription medications, or has had an overdose, or if you have or have ever had depression or another mental illness. There is a greater risk that you will overuse oxycodone if you have or have ever had any of these conditions.Talk to your healthcare provider immediately and ask for guidance if you think that you have an opioid addiction or call the U.S. Substance Abuse and Mental Health Services Administration (SAMHSA) National Helpline at 9-109-020-ZYNQ. Oxycodone may cause serious or life-threatening breathing problems, especially during the first 24 to 72 hours of your treatment and any time your dose is increased. Your doctor will monitor you carefully during your treatment. Tell your doctor if you have or have ever had slowed breathing or asthma. Your doctor will probably tell you not to take oxycodone. Also tell your doctor if you have or have ever had lung disease such as chronic obstructive pulmonary disease (COPD; a group of diseases that affect the lungs and airways), a head injury a brain tumor, or any condition that increases the amount of pressure in your brain. The risk that you will develop breathing problems may be higher if you are an older adult or are weak or malnourished due to disease. If you experience any of the following symptoms, call your doctor immediately or get emergency medical treatment: slowed breathing, long pauses between breaths, or shortness of breath. Do not allow anyone else to take your medication. Oxycodone may harm or cause to other peoplewho take your medication, especially children. Keep oxycodone in a safe place so that no one else can take it accidentally or on purpose. Be especially careful to keep oxycodone out of the reach of children. Keep track of how many capsules, tablets, or oral solution is left so you will know if any medication is missing. Taking certain other medications with oxycodone may increase the risk of serious or life-threatening breathing problems, sedation, or coma. Tell your doctor and pharmacist what other prescription andnonprescription medications, vitamins, nutritional supplements, and herbal products you are taking or plan to take. Your doctor may need to change the doses of your medication and will monitor you carefully. If you take oxycodone with other medications and you develop any of the following symptoms,call your doctor immediately or seek emergency medical care: unusual dizziness, lightheadedness, extreme sleepiness, slowed or difficult breathing, or unresponsiveness. Be sure that your caregiver orfamily members know which symptoms may be serious so they can call the doctor or emergency medical care if you are unable to seek treatment on your own. Drinking alcohol, taking prescription or nonprescription medications that contain alcohol, or usingstreet drugs during your treatment with oxycodone increases the risk that you will experience serious, life-threatening side effects. Do not drink alcohol, take prescription or nonprescription medications that contain alcohol, or use street drugs during your treatment. If you are taking the oxycodone extended-release tablets, swallow them whole; do not chew, break, divide, crush, or dissolve them. Do not presoak, lick or otherwise wet the tablet prior to placing inthe mouth. Swallow each tablet right after you put it in your mouth. If you swallow broken, chewed,crushed, or dissolved extended-release tablets, you may receive too much oxycodone at once instead of slowly over 12 hours. This may cause serious problems, including overdose and . Oxycodone comes as a regular solution (liquid) and as a concentrated solution that contains more oxycodone in each milliliter of solution. Be sure that you know whether your doctor has prescribed theregular or concentrated solution and the dose in milliliters that your doctor has prescribed. Use the dosing cup, oral syringe, or dropper provided with your medication to carefully measure the number of milliliters of solution that your doctor prescribed. Read the directions that come with your medication carefully and ask your doctor or pharmacist if you have any questions about how to measure your dose or how much medication you should take. You may experience serious or life threatening side effects if you take an oxycodone solution with a different concentration or if you take a different amount of medication than prescribed by your doctor. Store oxycodone in a safe place so that no one else can take it accidentally or on purpose. Be especially careful to keep oxycodone out of the reach of children. Keep track of how many tablets or capsules, or how much liquid is left so you will know if any medication is missing. Dispose of unwantedcapsules, tablets, extended-release tablets, extended-release capsules, and liquid properly according to instructions. (See STORAGE and DISPOSAL). Tell your doctor if you are or plan to become . If you take oxycodone regularly during your , your baby may experience life- threatening withdrawal symptoms after . Tellyour baby's doctor right away if your baby experiences any of the following symptoms: irritability, hyperactivity, abnormal sleep, high-pitched cry, uncontrollable shaking of a part of the body, vomiting, diarrhea, or failure to gain weight. Talk to your doctor about the risks of taking oxycodone. Your doctor or pharmacist will give you the narrative writer's patient information sheet (Medication Guide) when you begin your treatment with oxycodone and each time you fill your prescription. Read theinformation carefully and ask your doctor or pharmacist if you have any questions. You can also visit the Food and Drug Administration (FDA) website (https://www.fda.gov/Drugs/DrugSafety/mzs588791.htm) or the narrative writer's website to obtain the Medication Guide. WHY is this medicine prescribed? Oxycodone immediate-release tablets, capsules, and oral solution are used to relieve severe, acute pain (pain that begins suddenly, has a specific cause, and is expected to go away when the cause of the pain is healed) in people who are expected to need an opioid pain medication and who cannot be treated with other pain medications. Oxycodone extended-release tablets and extended-release capsulesare used to relieve severe pain in people who are expected to need pain medication around the clockfor a long time and who cannot be treated with other medications. Oxycodone extended-release tablets and extended-release capsules should not be used to treat pain that can be controlled by medication that is taken as needed. Oxycodone concentrated solution should only be used to treat people who are tolerant (used to the effects of the medication) to opioid medications because they have taken this type of medication for at least one week. Oxycodone is in a class of medications called opiate (narcotic) analgesics. It works by changing the way the brain and nervous system respond to pain. Oxycodone is also available in combination with acetaminophen (Oxycet, Percocet, others) and aspirin (Percodan). This monograph only includes information about the use of oxycodone alone. If you are taking an oxycodone combination product, be sure to read information about all the ingredients in the product you are taking and ask your doctor or pharmacist for more information. HOW should this medicine be used? Oxycodone comes as a solution (liquid), a concentrated solution, a tablet, a capsule, an extended-release (long-acting) tablet (Oxycontin), and an extended- release capsule (Xtampza ER) to take by mouth. The solution, concentrated solution, tablet, and capsule are taken usually with or without food every 4 to 6 hours, either as needed for pain or as regularly scheduled medications. The extended-release tablets (Oxycontin) are taken every 12 hours with or without food. The extended-release capsules (Xtampza ER) are taken every 12 hours with food; eat the same amount of food with each dose. Follow the directions on your prescription label carefully, and ask your doctor or pharmacist to explainany part you do not understand. Take oxycodone exactly as directed. If you are taking the extended-release tablets (Oxycontin), swallow the tablets one at a time with plenty of water. Swallow the tablet or right after putting it in your mouth. Do not presoak, wet, orlick the tablets before you put them in your mouth. Do not chew or crush extended-release tablets. If you have trouble swallowing extended-release capsules (Xtampza ER), you can carefully open the capsule and sprinkle the contents on soft foods such as applesauce, pudding, yogurt, ice cream, or jam, then consume the mixture immediately. Dispose of the empty capsule shells right away by flushing them down a toilet. Do not store the mixture for future use. If you have a feeding tube, the extended-release capsule contents can be poured into the tube. Ask your doctor how you should take the medication and follow these directions carefully. Your doctor may adjust your dose of oxycodone during your treatment, depending on how well your pain is controlled and on the side effects that you experience. Talk to your doctor about how you are feeling during your treatment with oxycodone. Tell your doctor if you feel that your pain is not controlled or if your pain increases, becomes worse, or if you have new pain or an increased sensitivityto pain during your treatment with oxycodone. Do not take more of it or take it more often than prescribed by your doctor. Do not stop taking oxycodone without talking to your doctor. If you stop taking oxycodone suddenly,you may experience withdrawal symptoms such as restlessness, watery eyes, runny nose, sneezing, yawning, sweating, chills, muscle or joint aches or pains, weakness, irritability, anxiety, depression,difficulty falling asleep or staying asleep, cramps, nausea, vomiting, diarrhea, loss of appetite, fast heartbeat, and fast breathing. Your doctor will probably decrease your dose gradually. Are there OTHER USES for this medicine? This medication may be prescribed for other uses; ask your doctor or pharmacist for more information. What SPECIAL PRECAUTIONS should I follow? Before taking oxycodone, ??? tell your doctor and pharmacist if you are allergic to oxycodone, any other medications, or anyof the ingredients in the oxycodone product you plan to take. Ask your pharmacist or check the Medication Guide for a list of the ingredients. ??? tell your doctor or pharmacist if you are taking thefollowing medications or have stopped taking them within the past two weeks: isocarboxazid (Marplan), linezolid (Zyvox), methylene blue, phenelzine (Nardil), selegiline (Emsam, Zelapar), or tranylcypromine (Parnate). ??? The following nonprescription or herbal products may interact with oxycodone: Roge's wort and tryptophan. Be sure to let your doctor and pharmacist know that you are taking these medications before you start taking oxycodone. Do not start these medications while taking oxycodone without discussing it with your healthcare provider. ??? tell your doctor if you have or have ever had any of the conditions mentioned in the IMPORTANT WARNING section, a blockage or narrowing of your stomach or intestines, or paralytic ileus (condition in which digested food does not move through the intestines). Your doctor may tell you not to take oxycodone. ??? Also tell your doctor if you have or have ever had low blood pressure; seizures; adrenal insufficiency (condition in which theadrenal glands do not produce enough of certain hormones needed for important body functions); seizures; urethral stricture (blockage of the tube that allows urine to leave the body), problems urinating; or heart, kidney, liver, pancreas, thyroid, or gall bladder disease. If you will be taking the extended-release tablets or extended-release capsules, also tell your doctor if you have or have ever had difficulty swallowing, diverticulitis (condition in which small pouches form in the intestinesand become swollen and infected), colon cancer (cancer that begins in the large intestine), or esophageal cancer (cancer that begins in the tube that connects the mouth and stomach). ??? tell your doctor if you are . You should not breastfeed while you are taking oxycodone. Oxycodone can cause shallow breathing, difficulty or noisy breathing, confusion, more than usual sleepiness, trouble , or limpness in breastfed infants. ??? you should know that this medication may decrease fertility in men and women. Talk to your doctor about the risks of taking oxycodone. ??? ifyou are having surgery, including dental surgery, tell the doctor or dentist that you are taking oxycodone. ??? you should know that this medication may make you drowsy. Do not drive a car, operate heavy machinery, or participate in any other possibly dangerous activities until you know how this medication affects you. ??? you should know that oxycodone may cause dizziness, lightheadedness, and fa inting when you get up too quickly from a lying position. To help avoid this problem, get out of bed slowly, resting your feet on the floor for a few minutes before standing up. ??? you should know that oxycodone may cause constipation. Talk to your doctor about changing your diet or using other medications to prevent or treat constipation while you are taking oxycodone. What SPECIAL DIETARY instructions should I follow? Unless your doctor tells you otherwise, continue your normal diet. What should I do IF I FORGET to take a dose? If you are taking oxycodone on a regular schedule, take the missed dose as soon as you remember it.However, if it is almost time for the next dose, skip the missed dose and continue your regular dosing schedule. Do not take a double dose to make up for a missed one. Do not take more than one dose of the extended- release tablets or capsules in 12 hours. What SIDE EFFECTS can this medicine cause? Oxycodone may cause side effects. Tell your doctor if any of these symptoms, are severe or do not go away: ??? dry mouth ??? stomach pain ??? drowsiness ??? flushing ??? headache ??? mood changes Some side effects can be serious. If you experience any of these symptoms or those mentioned in theIMPORTANT WARNING section, call your doctor immediately or get emergency medical help: ??? changes in heartbeat ??? agitation, hallucinations (seeing things or hearing voices that do notexist), fever, sweating, confusion, fast heartbeat, shivering, severe muscle stiffness or twitching, loss of coordination, or diarrhea ??? nausea, vomiting, loss of appetite, weakness, or dizziness ??? inability to get or keep an erection ??? irregular menstruation ??? decreased sexual desire ??? chest pain ??? rash; itching; hives; hoarseness; difficulty breathing or swallowing; or swelling of the face, mouth, tongue, lips, or throat ??? swelling of the hands, feet, ankles, or lower legs ??? seizures ??? extreme drowsiness If you experience a serious side effect, you or your doctor may send a report to the Food and Drug Administration's (FDA) MedWatch Adverse Event Reporting program online (https://www.fda.gov/Safety/MedWatch) or by phone ( ). Oxycodone may cause other side effects. Call your doctor if you have any unusual problems while youare taking this medication. What should I know about STORAGE and DISPOSAL of this medication? Keep this medication in the container it came in, tightly closed, and out of reach of children, andin a location that is not easily accessible by others, including visitors to the home. Store it at room temperature and away from light and excess heat and moisture (not in the bathroom). You must immediately dispose of any medication that is outdated or no longer needed through a medicine take-back program. If you do not have a take-back program nearby or one that you can access promptly, flush any medication that is outdated or no longer needed down the toilet so that others will not take it.Talk to your pharmacist about the proper disposal of your medication. It is important to keep all medication out of sight and reach of children as many containers (such as weekly pill minders and those for eye drops, creams, patches, and inhalers) are not child-resistant and young children can open them easily. To protect young children from poisoning, always lock safety caps and immediately place the medication in a safe location ??? one that is up and away and out of their sight and reach. https://www.Contentful.org What should I do in case of OVERDOSE? In case of overdose, call the poison control helpline at . Information is also available online at https://www.poisonhelp.org/help. If the victim has collapsed, had a seizure, has trouble breathing, or can't be awakened, immediately call emergency services at 911. While taking oxycodone, you should talk to your doctor about having a rescue medication called naloxone readily available (e.g., home, office). Naloxone is used to reverse the life-threatening effects of an overdose. It works by blocking the effects of opiates to relieve dangerous symptoms caused by high levels of opiates in the blood. Your doctor may also prescribe you naloxone if you are livingin a household where there are small children or someone who has abused street or prescription drugs. You should make sure that you and your family members, caregivers, or the people who spend time with you know how to recognize an overdose, how to use naloxone, and what to do until emergency medical help arrives. Your doctor or pharmacist will show you and your family members how to use the medication. Ask your pharmacist for the instructions or visit the narrative writer's website to get the instructions. If symptoms of an overdose occur, a caregiver or family member should give the first dose of naloxone, call 911 immediately, and stay with you and watch you closely until emergency medical help arrives.Your symptoms may return within a few minutes after you receive naloxone. If your symptoms return, the person should give you another dose of naloxone. Additional doses may be given every 2 to 3 minutes, if symptoms return before medical help arrives. Symptoms of overdose may include the following: ??? difficulty breathing ??? slowed or shallow breathing ??? excessive sleepiness ??? limp or weak muscles ??? narrowing or widening of the pupils (dark wilton in the eye) ??? cold, clammy skin ??? unable to respond or wake up ??? slowed heartbeat ??? unusual snoring What OTHER INFORMATION should I know? Keep all appointments with your doctor. Your doctor may order certain lab tests to check your body's response to oxycodone. Before having any laboratory test (especially those that involve methylene blue), tell your doctor and the laboratory personnel that you are taking oxycodone. This prescription is not refillable. If you continue to have pain after you finish the oxycodone, call your doctor. It is important for you to keep a written list of all of the prescription and nonprescription (wktc-kzy-trnldpf) medicines you are taking, as well as any products such as vitamins, minerals, or otherdietary supplements. You should bring this list with you each time you visit a doctor or if you areadmitted to a hospital. It is also important information to carry with you in case of emergencies. This report on medications is for your information only, and is not considered individual patient advice. Because of the changing nature of drug information, please consult your physician or pharmacist about specific clinical use. The [employer] [place] [employer] represents that the information provided hereunder was formulated with a reasonable standard of care, and in conformity with professional standards in the field. The [employer] [place] [employer] makes no representations or warranties, express or implied, including, but not limited to, any implied warranty of merchantability and/or fitness for a particular purpose, with respect to such information and specifically disclaims all such warranties. Users are advised that decisions regarding drug therapy are complex medical decisions requiring the independent, informed decision of an appropriate health healthcare associate, and the information is provided for informational purposes only. The entire monograph for a drug should be reviewed for a thorough understanding of the drug's actions, uses and side effects. The [employer] [place] [employer] does not endorse or recommend the use of any drug.The information is not a substitute for medical care. AHFS?? Patient Medication Information???. ?? Copyright, 2023. The [employer] [place] [employer]??, [address], [address], [place], [place]. All Rights Reserved. Duplication for commercial use must be authorized by [facility]. Selected Revisions: May 16, 2023. AHFS?? Patient Medication Information???. ?? Copyright, 2023 ?? * Kike Massey MD: SIGN Kike Massey MD: SIGN, SIGN, MODIFY, SIGN, VERIFY Teri Fraser NP: VERIFY, PERFORM Evelio GRANGER, Teri Gibson: PERFORM, SIGN Evelio GRANGER, Teri Gibson: SIGN Event Display: Discharge/Transfer Note Hospital Authored Date: Patient: JOSE ERAZO Age: 73 years Sex: Female : 1950 Associated Diagnoses: None Author: Teri Fraser NP Discharge Summary Admission Date: 01/12/24 Discharge Date: 01/15/24 Admitting Diagnosis: Left hip osteoarthritis Discharge Diagnosis: Left hip osteoarthritis Final Diagnosis : Left hip osteoarthritis Procedure: Left total hip arthroplasty Surgeon: Dr. Kike Massey Past Medical History: 1. Osteoarthritis of the left hip. 2. Allergic rhinitis. 3. Asthma. 4. Hypercholesterolemia. 5. Eczema. 6. Fibromyalgia. 7. Low back pain. 8. Anaphylaxis with Latex Orthopedics: The patient is status post left total hip arthroplasty. It is anticipated that they will be discharged home today pending PT, OT clearance. The patient is doing well from a surgical standpoint. The incision is healing well. Neurovascular status is intact. Calves are supple and nontender. Making good progress with Physical Therapy and Occupational therapy. Supervision with ambulation walking 25 feet , ambulating with a walker. Pain is well controlled on their current regimen, Acetaminophen 650 mg every 6 hours, tramadol 50-100mg PO q 6 hrs as needed and Oxycodone 5-10 mg every 4 hours as needed. Patient is tolerating this well. They will be sent home with a prescription for this medication. Prescription: Tramadol 50 mg tablet. Take 1-2 tablets every 6 hours as needed for pain x 7 days. # 56 tablet. Oxycodone IR 5mg tablet. Take 1-2 tablets every 4 hours as needed for pain x 7 days. # 84 tablet. Hospital course: Relatively uneventful medically. The patient denies any nausea/vomiting. Patient struggled with pain on POD 1 and required an additional night stay. Pain is controlled now. Patient is voiding spontaneously. + bowel sounds. No other issues. No calf tenderness. Current Medication List: Acetaminophen (acetaminophen 325 mg oral tablet) 650 Milligram By Mouth Every 6 hours may take OTCnot to exceed 3000 mg/day Albuterol (ProAir HFA) 2 puff(s) Inhalation 4 times a day Aspirin (Ecotrin 325 mg oral delayed release tablet) 1 tab(s) 325 Milligram By Mouth 2 times a day for 30 Days Docusate (docusate sodium 100 mg oral tablet) 1 tab(s) 100 Milligram By Mouth Daily as needed for constipation fluticasone-vilanterol (Breo Ellipta 100 mcg-25 mcg/inh inhalation powder) 1 puff(s) Inhalation Daily Loratadine (Claritin Tablet) 10 Milligram By Mouth Daily Milk of Magnesia (MOM Liquid) 30 Milliliter By Mouth Daily as needed Constipation Ondansetron (ondansetron 4 mg oral tablet) 1 tab(s) 4 Milligram By Mouth Every 8 hours as needed Nausea & Vomiting for 7 Days Oxycodone (oxyCODONE 5 mg oral tablet) See Instructions as needed 1-2 tablets By Mouth Every 4 hours Pain , Severe Pantoprazole (pantoprazole 40 mg oral delayed release tablet) 40 Milligram By Mouth Daily for 30 Days Polyethylene Glycol 3350 (MiraLax oral powder for reconstitution) 17 gram By Mouth Daily Tramadol (traMADol 50 mg oral tablet) See Instructions as needed Pain , Mild 1-2 tablets By Mouth Every 6 hoursnot to exceed 400 mg/day Allergies: Allergies (Active and Proposed Allergies Only) Xyzal (Severity: Unknown severity, Onset: Unknown) Comments: Causes suicidal ideation Nickel (Severity: Unknown severity, Onset: Unknown) Fish (Severity: Unknown severity, Onset: Unknown) Reactions: perch, anaphylatic Latex (Severity: Unknown severity, Onset: Unknown) Reactions: blistering all over breathing problem Pollen (Severity: Unknown severity, Onset: Unknown) Reactions: hives asthma Mold (Severity: Unknown severity, Onset: Unknown) Reactions: rash hives asthma Dust (Severity: Unknown severity, Onset: Unknown) Reactions: hives asthma Dogs (Severity: Unknown severity, Onset: Unknown) Reactions: hives asthma Cats (Severity: Unknown severity, Onset: Unknown) Reactions: hives asthma sulfa drugs (Severity: Unknown severity, Onset: Unknown) Reactions: hives rash penicillins (Severity: Unknown severity, Onset: Unknown) Reactions: rash Benadryl (Severity: Unknown severity, Onset: Unknown) Reactions: rash Current Labs: Last 24 Hours Basic Metabolic Panel: Hematology: Sodium: 134 mmol/L (01/15/24) Hgb: 8.9 Gm/dL (01/15/24) Potassium (POC): 4.8 mmol/L (01/15/24) Hemoglobin A1C (Monitoring): ------ Phosphorus: ------ WBC: 7.3 k/mm3 (01/15/24) Magnesium: ------ Platelets: 233 k/mm3 (01/15/24) BUN (POC) POC Cartridge: 12 mg/dL (01/15/24) INR Level: ------ Creatinine-Blood: 0.87 mg/dL (01/15/24) Creatinine Clearance: ------ Additional - Last 24 Hours Abs. NRBC: 0.0 k/mm3 (01/15/24) Anion Gap: 9 (01/15/24) Bicarbonate Level: 26 mmol/L (01/15/24) BUN: BUN (01/15/24) Chloride: 99 mmol/L (01/15/24) Creatinine, Blood: Creatinine, Blood (01/15/24) Est Creatinine Clearance: 48.35 (01/15/24) Estimated GFR Creatinine: 71 ML/MIN/1.73 M2 (01/15/24) Hct: 26.7 % (01/15/24) MCH: 29.0 pg (01/15/24) MCHC: 33.3 Gm/dL (01/15/24) MCV: 87.0 femtoliters (01/15/24) MPV: 8.7 femtoliters (01/15/24) Nucleated RBC (Automated): 0.0 #/100 WBC'S (01/15/24) RBC: 3.07 m/mm3 (01/15/24) RDW-SD: 42.6 femtoliters (01/15/24) DVT prophylaxis ASA EC 325 mg p o bid x 30 days Disposition: Anticipates being discharged today to home with services. Follow up at [facility] in 2 weeks , patient isaware of this. The patient has an aquacel dressing in place. They may shower with it and the dressing can be discontinued on POD 14. Discharge Information Admission Date: 01/12/2024 Principal Discharge Diagnosis Discharge Plan Discharge Disposition Discharge: home with VNA. Home Health Face to Face I certify that this patient is under my care and that I or an allowed non- physician practitioner working with me, had a [id number]-[id number] encounter with the patient on this date: 01/13/2024. The encounter with the patient was in whole, or in part, for the following medical condition, whichis the primary reason for home health care: Osteoarthritis of hip, left. Physical Therapy: Functional mobility training, Home exercise program to strengthen, increase ROM, Falls prevention training. Occupational Therapy: ADL Management, Fall prevention training, Energy conservation. Homebound due to: Inability to leave home without assistance/supervision, Inability to ambulate without assistance, Pain, decreased strength, and endurance. Physician Signature: Kike Massey MD Patient Care team information Care Team Personnel Name: Azar Rahman RN Position: [facility] RN Member Role: Primary Care Nurse Name: Heaven Segal RN Position: S RN Member Role: Primary Care Nurse Name: Boston Cohen MD , Gifty Position: S Outreach Member Role: PCP Address: [address] [place] [address] Telecom: Name: Geeta De Jesus RN Position: S RN Member Role: Primary Care Nurse Name: Sabiha Solorio RN Position: S RN Member Role: Primary Care Nurse Name: Sheri Mckeon RN Position: S RN Member Role: Primary Care Nurse Care Team Related Persons Name: STEFANI ERAZO Name: SENG ERAZO Insurance Providers Guarantor name: JOSE ERAZO [email or web address] Plan Information #: 2 Payer: MEDICARE PART B OUTPT Member Number: [id number] Policy Number: KAREEM Group Number: K[employer]EM Health Plan Information #: 1 Payer: MEDICARE A INPT 25 Member Number: [id number] Policy Number: KAREEM Group Number: [employer]EM Health Plan Information #: 3 Payer: [email or web address] Member Number: [id number] Policy Number: KAREEM Group Number: [employer]EM Health Plan Information #: 4 [facility] Member Number: [id number] Policy Number: KAREEM Group Number: [id number]
--- OUTSIDE RECORDS SUMMARY | 2024-02-11 11:33 | XMS_ITS | Continuity of Care Document ---
Author Organization GIOVANNI Juan Bundy [facility], Je[facility] PT Address [address] [place] [address] Care Team Providers Care Dehydration Unit Operator Name Role Phone CATARINO KAMARA Referring Provider CATARINO KAMARA Primary Care Provide r Assessment Encounter Date Assessment Date Assessment LastModified by Organization Details LastModified Time 02/02/2024 02/02/2024 Assessment: Improved gait w/ use of SPC, antalgic gait w/o can short distances. Weak glute/global LE. TTP along inciison/dist al ITB. Plan: Continue with PT at 2x/week for 4 weeks focusing on decreasing pain, improving ROM, strength, optimizing gait and stair mechanics, and mobility for functional ADL's. angus Not available 02/03/2024 08:32:20 Plan of Treatment Reminders Order Date Submit Date Provider Last Modified By Organization Details Last Modified Time Details Appointments PT FOLLOW -UP 01:30PM Karen Moreno TEST ADMINISTRATOR Not available Not available Not available PT FOLLOW -UP 02:00PM MEGAN MatamorosT Not available Not available Not available PT FOLLOW -UP 02:00PM Karen Moreno TEST ADMINISTRATOR Not available Not available Not available POST OP 10 12:50PM Kike Massey MD Not available Not available Not available PT FOLLOW -UP 02:30PM Karen Moreno TEST ADMINISTRATOR Not available Not available Not available PT FOLLOW -UP 02:30PM Karen Moreno TEST ADMINISTRATOR Not available Not available Not available Lab None record ed. Referral None record ed. Procedures None record ed. Surgeries None record ed. Imaging None record ed. Medication Orders None record ed. Patient TargetsNo targets recorded. Patient InstructionsNo instructions recorded. Reason for Referral None Reported. Results Created Date Observation Date Name Description Value Unit Range Abnormal Flag Note LastModifiedBy Organization Detail LastModifiedTime 01/10/20 24 12/12/2023 XR, hip + pelvi s, unila teral , 2 or 3 view http:/ [email or web address] ?Encry pted=s hAaTro YD8dLq bEUv6g %2BXZw aYqtaq 0bqfl% 2Fg9IQ a4ajBk vP9nXo QUaueC m3YtLR FvZlgJ JJ8mAn HZtai3 4y3578 AC0Kqa 3uFVaK kKiQtr MwF INTERFACE [facility] [address], [place], [address], 01/10/2024 11:37:55 01/10/20 24 12/12/2023 XR, hip + pelvi s, unila teral , 2 or 3 view http:/ [email or web address] ?Encry pted=s hAaTro YD8dLq bEUv6g %2BXZw aYqtaq 0bqfl% 2Fg9IQ a4ajBk vP9nXo QUaueC m3YtLR FvZl JJ8mAn HZtai3 6q1115 AC0Kqa 3uFVaK kKiQtr MwF INTERFACE [facility] [address] [facility] [address], [place], [address], 01/10/2024 11:37:56 01/12/20 24 01/12/2024 XR, hip + pelvi s, unila teral , 2 or 3 view No observ ation record ed. [facility] [address] [facility], [place], [address], 01/14/2024 10:40:36 01/12/20 24 01/12/2024 XR, hip + pelvi s, unila teral , 2 or 3 view No observ ation record ed. [facility] [address] [facility], [place], [address], 01/14/2024 10:40:37 01/26/20 24 01/26/2024 XR, hip + pelvi s, unila teral , 2 or 3 view http:/ [email or web address] ?Encry pted=s hAaTro YD8dLq bEUv6g %2BXZw aYqtaq 0bqfl% 2Fg9IQ a4ajBk vP9nXo QUaueC m3YtLR FvZlgJ JJ8mAn HZtai3 8k1998 AC0Kqa XmAVKS uKiQtr MwF INTERFACE [facility] [address], [place], [address], 01/26/2024 15:07:59 01/26/20 24 01/26/2024 XR, hip + pelvi s, unila teral , 2 or 3 view http:/ [email or web address] ?Encry pted=s hAaTro YD8dLq bEUv6g %2BXZw aYqtaq 0bqfl% 2Fg9IQ a4ajBk vP9nXo QUaueC m3YtLR FvZlgJ JJ8mAn HZtai3 4s3570 AC0Kqa XmAVKS uKiQtr MwF INTERFACE [facility] [address], [place], [address], 01/26/2024 15:08:01 Result Notes None recorded. Problems Name Problem SNOMED Code Status Onset Date Resolution Date Notes Provider Name and Address Organization Details Recorded Time Osteoarthr itis of left hip joint 4517016151399 08 Active 2023 Kike Massey MD [address], [facility] [place], [address] , [facility] 17:02:30 Problem Notes None recorded. Procedures Surgical History Date Name Laterality Status Provider Name and Address Organization Details Recorded Time 4 98894 Therapeutic Exercise (1:1) completed MEGAN MatamorosT [address] [facility], [place], [address], [facility] 02/03/2024 08:29:38 4 28472 Therapeutic Exercise (1:1) completed Justin Garcia DPT [address], [place], [address], [facility] 01/28/2024 07:47:25 4 26155: Low complexity PT Eval completed Justin Garcia DPT [address] [facility], [place], [address], [facility] 01/28/2024 07:47:35 4 G8417 BMI Above Upper Parameters, F/U Documented completed MEGAN MatamorosT [address] [facility], [place], [address], [facility] 01/28/2024 07:47:31 4 G8427 Current Medication Documented completed MEGAN MatamorosT [address] [facility], [place], [address], [facility] 01/28/2024 07:47:28 4 21919 Therapeutic Exercise (1:1) completed Justin Garcia DPT [address], [place], [address], [facility] 12/30/2023 10:10:01 4 26772: Low complexity PT Eval completed Justin Garcia DPT [address] [facility], [place], [address], [facility] 12/30/2023 10:10:03 4 G8417 BMI Above Upper Parameters, F/U Documented completed Justin Garcia DPT [address] [facility], [place], [address], [facility] 12/29/2023 16:02:16 4 G8427 Current Medication Documented completed Justin Garcia DPT [address], [place], [address], [facility] 12/29/2023 16:02:12 Ankle/Foot Surgery completed Kiki Dyer [facility] 12/12/2023 13:32:53 Hand Surgery completed Kiki Dyer [facility] 12/12/2023 13:32:53 Imaging Results None recorded. Procedure Notes None recorded. Medical Equipment None Reported. Allergies Allergen ID Allergen Name Allergen Category Reaction Reaction Severity Criticality Documentation Date Start Date Code Code System Note Provider Name and Address Organization Details Recorded Time 344440 latex environme nt,medica tion anaphylax is Not available Not available 10/07/2023 68895 91 RxNorm BRENT OZUNA-M EJALEXA ferrellReplaced by [facility] 4 16:09:10 386573 Medicinal product containin g penicilli n and acting as antibacte rial agent (product) medicatio n Not available Not available Not available 10/07/2023 96044 05 SNOMED BRENT OZUNA-M EJIA [facility] 4 16:10:22 586686 Benadryl medicatio n Not available Not available Not available 10/07/2023 81694 7 RxNorm BRENT OZUNA-M EJALEXA [facility], [facility] 4 16:10:29 226082 Xyzal medicatio n Not available Not available Not available 10/07/2023 87859 5 RxNorm BRENT OZUNA-M EJIA ghassan, [facility] 4 16:10:55 171989 Substance with sulfonami de structure and antibacte rial mechanism of action (substanc e) medicatio n Not available Not available Not available 10/07/2023 49777 8003 SNOMED BRENT OZUNA-M EJIA ghassan, [facility] 16:11:07 Medications Name Sig Start Date Stop [...] Not Available Not Available Not Available Vitals None Recorded Social History Question Answer Notes LastModified by Organizat ion Details LastModified Time Tobacco Smoking Status Never Smoker BRENT OZUNA-MOHAN ferrell [place] - [facility] 10/07/2023 16:12:42 What Is Your Level Of Alcohol Consumption? None Information not available 10/07/2023 Do You Use Any Illicit Or Recreational Drugs? No Information not available 10/07/2023 Do You Or Have You Ever Used Any Other Forms Of Tobacco Or Nicotine? No [email or web address] Information not available 10/07/2023 Sex: Unknown Functional Status None recorded. Mental Status None recorded. Family History Nothing Reported. Medical History No medical history recorded. Gynecological HistoryNo gynecological history recorded. Obstetrics History GPAL:G 0 P 0 0 0 0 Past Encounters Encounter ID Performer Location Encounter Start Date Encounter Closed Date Diagnosis/Indication Diagnosis SNOMED-CT Code Diagnosis ICD10 Code [id number] ELKIN Magallanes 2nd floor [address] [place] [address] 01/06/2024 11:03:47 02/04/2024 03:58:44 Osteoarthritis of left hip joint 1273307629 91649 M16.12 [id number] RUFUS Gomez 2nd floor [address] [place] [address] 01/26/2024 14:46:48 01/26/2024 16:45:57 History of total replacement of left hip joint 6233316549 715374 Z96.840 [id number] MD Mayte Umanzor PT [address] [place] [address] 01/27/2024 11:33:44 01/27/2024 12:06:02 Aftercare 771537108 Z47.1 Z96.958 [id number] JUSTIN Matamoros PT [address] [place] [address] 02/02/2024 16:28:51 02/02/2024 17:02:13 Aftercare 472029446 Z47.1 Z96.642 Health Concerns Section Related Observation LastModified by Organization Detai ls LastModified Time None Recorded Concern Status LastModified by Organization Details LastModified Time None Recorded Payers Encounter Date Sequence Insurance Name Policy Number Policy Guzman Covered Member ID Guzman Member ID Guarantor Name 02/02/2024 1 [place] [employer] Leslie Rausch [id number] Leslie Rausch 02/02/2024 2 MEDICAID-[place]: [facility] Leslie Alvaradout [id number] Leslie [facility] Notes Date Note Type Note Provider Name and Address Organization Details Recorded Time 02/02/2024 text/html Pt reports feeling a little better, able to ambulate w/ SPC. Small distances w/o cane at home. 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 02/03/2024 08:32:32 OBGyn Episode No OBEpisode recorded.
--- OUTSIDE RECORDS SUMMARY | 2024-02-11 11:33 | XMS_ITS | Continuity of Care Document ---
Author Organization [facility], [facility] 2nd floor Address [address] [place] [address] Care Team Providers Care Napper Fixer Name Role Phone GIFTY KAMARA Referring Provider GIFTY KAMARA Primary Care Provide r Assessment Encounter Date Assessment Date Assessment LastModified by Organization Details LastModified Time 01/06/2024 01/06/2024 PRIMARY DIAGNOSI S: Osteoarthritis of the left hip. REASON FOR ADMISSION: The patient is being admitted for an anterior left total hip arthroplasty with Dr. Kiek Massey on 01/12/2024. HISTORY OF PRESENT ILLNESS: [...] Dr. Massey. CONTACTS: Her , Lucio, at [phone]. A backup phone number is for Frieda, . Prescriptions given at the time of the history and physical today include none. She will require prescription for aspirin, pantoprazole, ondansetron and pain medication at the time of discharge. She already has Colace at home and meloxicam at home. [email or web address] Not available 01/07/2024 09:44:25 Plan of Treatment Reminders Order Date Submit Date Provider Last Modified By Organization Details Last Modified Time Details Appointments PT FOLLOW -UP 01:30PM Karen Moreno CATTLE SPRAYER Not available Not available Not available PT FOLLOW -UP 02:00PM MEGAN MatamorosT Not available Not available Not available PT FOLLOW -UP 02:00PM Karen Moreno CATTLE SPRAYER Not available Not available Not available POST OP 10 12:50PM Kike Massey MD Not available Not available Not available PT FOLLOW -UP 02:30PM Karen Moreno, CATTLE SPRAYER Not available Not available Not available PT FOLLOW -UP 02:30PM Karen Moreno, CATTLE SPRAYER Not available Not available Not available Lab [...] , 2 or 3 view [email or web address]:/ [email or web address] ?Encry pted=s hAaTro YD8dLq bEUv6g %2BXZw aYqtaq 0bqfl% 2Fg9IQ a4ajBk vP9nXo QUaueC m3YtLR FvZl [facility] HZtai3 2o3038 AC0Kqa 3uFVaK kKiQtr MwF INTERFACE [facility] [address] [facility] [address], [place], [address], 12/12/2023 13:52:39 12/12/19 24 12/12/2023 XR, hip + pelvi s, unila teral , 2 or 3 view http:/ [email or web address] ?Encry pted=s hAaTro YD8dLq bEUv6g %2BXZw aYqtaq 0bqfl% 2Fg9IQ a4ajBk vP9nXo QUaueC m3YtLR FvZl [facility] HZtai3 6a6843 AC0Kqa 3uFVaK kKiQtr MwF INTERFACE [facility] [address] [facility] [address], [place], [address], 12/12/2023 13:52:41 01/10/20 24 12/12/2023 XR, hip + pelvi s, unila teral , 2 or 3 view http:/ [email or web address] ?Encry pted=s hAaTro YD8dLq bEUv6g %2BXZw aYqtaq 0bqfl% 2Fg9IQ a4ajBk vP9nXo QUaueC m3YtLR FvZl [address] Streettai3 1w5933 AC0Kqa 3uFVaK kKiQtr MwF INTERFACE [facility] [address] [facility] [address] [facility] [address], [place], [address], 01/10/2024 11:37:55 01/10/20 24 12/12/2023 XR, hip + pelvi s, unila teral , 2 or 3 view http:/ [email or web address] ?Encry pted=s hAaTro YD8dLq bEUv6g %2BXZw aYqtaq 0bqfl% 2Fg9IQ a4ajBk vP9nXo QUaueC m3YtLR FvZlgJ [facility] HZtai3 6p2278 AC0Kqa 3uFVaK kKiQtr MwF INTERFACE [facility] [address] [facility] [address] [address] [facility] [address], [place], [address], 01/10/2024 11:37:56 01/12/20 24 01/12/2024 XR, hip + pelvi s, unila teral , 2 or 3 view No observ ation record ed. [address], [address], 01/14/2024 10:40:36 01/12/20 24 01/12/2024 XR, hip + pelvi s, unila teral , 2 or 3 view No observ ation record ed. [address], [address], 01/14/2024 10:40:37 01/26/20 24 01/26/2024 XR, hip + pelvi s, unila teral , 2 or 3 view http:/ [email or web address] ?Encry pted=s hAaTro YD8dLq bEUv6g %2BXZw aYqtaq 0bqfl% 2Fg9IQ a4ajBk vP9nXo QUaueC m3YtLR FvZlgJ JJ8[facility] Hospitaltai3 9u2399 AC0Kqa XmAVKS uKiQtr MwF INTERFACE [email or web address] [address], [place], [address], 01/26/2024 15:07:59 01/26/20 24 01/26/2024 XR, hip + pelvi s, unila teral , 2 or 3 view http:/ [email or web address] ?Encry pted=s hAaTro YD8dLq bEUv6g %2BXZw aYqtaq 0bqfl% 2Fg9IQ a4ajBk vP9nXo QUaueC m3YtLR FvZlgJ JJ8mAn HZtai3 0c2002 AC0Kqa XmAVKS uKiQtr MwF INTERFACE [email or web address] [address], [place], [address], 01/26/2024 15:08:01 Result Notes None recorded. Problems Name Problem SNOMED Code Status Onset Date Resolution Date Notes Provider Name and Address Organization Details Recorded Time Osteoarthr itis of left hip joint 6759657850822 08 Active 2023 Kike Massey MD [address], [place], [address] , [facility] 4 17:02:30 Problem Notes None recorded. Procedures Surgical History Date Name Laterality Status Provider Name and Address Organization Details Recorded Time 4 65910 Therapeutic Exercise (1:1) completed Justin Garcia DPT [address], [place], [address], [facility] 02/03/2024 08:29:38 4 95664 Therapeutic Exercise (1:1) completed Justin Garcia DPT [address], [place], [address], [facility] 01/28/2024 07:47:25 4 96813: Low complexity PT Eval completed Justin Garcia DPT [email or web address], [place], [address], [facility] 01/28/2024 07:47:35 4 G8417 BMI Above Upper Parameters, F/U Documented completed Justin Garcia DPT [address] [facility], [place], [address], [facility] 01/28/2024 07:47:31 4 G8427 Current Medication Documented completed Justin Garcia DPT [address] [facility], [place], [address], [facility] 01/28/2024 07:47:28 4 11953 Therapeutic Exercise (1:1) completed Justin Garcia DPT [address] [facility], [place], [address], [facility] 12/30/2023 10:10:01 4 98732: Low complexity PT Eval completed Justin Garcia DPT [address] [facility], [place], [address], [facility] 12/30/2023 10:10:03 4 G8417 BMI Above Upper Parameters, F/U Documented completed Justin Garcia DPT [address] [facility], [place], [address], [facility] 12/29/2023 16:02:16 4 G8427 Current Medication Documented completed Justin Garcia DPT [address] [facility], [place], [address], [facility] 12/29/2023 16:02:12 Ankle/Foot Surgery completed Kiki Dyer [facility] 12/12/2023 13:32:53 Hand Surgery completed Kiki Dyer [facility] 12/12/2023 13:32:53 Imaging Results None recorded. Procedure Notes None recorded. Medical Equipment None Reported. Allergies Allergen ID Allergen Name Allergen Category Reaction Reaction Severity Criticality Documentation Date Start Date Code Code System Note Provider Name and Address Organization Details Recorded Time 569670 latex environme nt,medica tion anaphylax is Not available Not available 10/07/2023 07974 91 RxNorm BRENT CALDERÓNGUIN-M HORTENSIA [facility] 4 16:09:10 805468 Medicinal product containin g penicilli n and acting as antibacte rial agent (product) medicatio n Not available Not available Not available 10/07/2023 42730 05 SNOMED BRENT CALDERÓNGUIN-M HORTENSIA ferrell, [facility] 4 16:10:22 738146 Benadryl medicatio n Not available Not available Not available 10/07/2023 16503 7 RxNorm BRENT GARCIAIN-M HORTENSIA [facility] 4 16:10:29 755725 Xyzal medicatio n Not available Not available Not available 10/07/2023 17430 5 RxNorm BRENT CALDERÓNGUIN-M HORTENSIA [facility] 4 16:10:55 888754 Substance with sulfonami de structure and antibacte rial mechanism of action (substanc e) medicatio n Not available Not available Not available 10/07/2023 95308 8003 SNOMED [facility] CAL[facility]ÓNGUIN[facility] 4 16:11:07 Medications Name Sig Start Date Stop [...] Updated DateTime 01/06/2024 162.56 cm 30.2 kg/m2 94916.26 g [facility] 01/06/2024 11:24:47 Social History Question Answer Notes LastModified by Organizat ion Details LastModified Time Tobacco Smoking Status Never Smoker BRENT VOGEL [facility] 10/07/2023 16:12:42 What Is Your Level Of Alcohol Consumption? None [email or web address] Information not available 10/07/2023 Do You Use Any Illicit Or Recreational Drugs? No [email or web address] Information not available 10/07/2023 Do You Or Have You Ever Used Any Other Forms Of Tobacco Or Nicotine? No [email or web address] Information not available 10/07/2023 Sex: Unknown Functional Status None recorded. Mental Status None recorded. Family History Nothing Reported. Medical History No medical history recorded. Gynecological HistoryNo gynecological history recorded. Obstetrics History GPAL:G 0 P 0 0 0 0 Past Encounters Encounter ID Performer Location Encounter Start Date Encounter Closed Date Diagnosis/Indication Diagnosis SNOMED-CT Code Diagnosis ICD10 Code [id number] MD Roxana Umanzor 2nd floor [address] [place] [address] 12/12/2023 13:23:05 01/01/2024 15:35:18 Pain of left hip joint 2204186049 50797 M25.552 Osteoarthr itis of left hip joint 1492266013 78822 M16.12 [id number] MD Roxana Umanzor PT [address] [place] [address] 12/29/2023 15:08:24 12/29/2023 15:45:24 Osteoarthritis of hip 672907903 M16.12 [id number] ELKIN Magallanes 2nd [address] [place] [address] 01/06/2024 11:03:47 02/04/2024 03:58:44 Osteoarthritis of left hip joint 0169545043 05082 M16.12 Health Concerns Section Related Observation LastModified by Organization Detai ls LastModified Time None Recorded Concern Status LastModified by Organization Details LastModified Time None Recorded Payers Encounter Date Sequence Insurance Name Policy Number Policy Guzman Covered Member ID Guzman Member ID Guarantor Name 01/06/2024 1 [place] [employer] Lelsie Cassidy Washut [id number] Leslie Washut 01/06/2024 2 [place] Leslie A Washut [id number] [facility] OBGyn Episode No OBEpisode recorded.
--- OUTSIDE RECORDS SUMMARY | 2024-02-11 11:33 | XMS_ITS | Continuity of Care Document ---
Author Organization [facility] Address [address] [place] [address]- Care Team Providers Care Plant Operator Control Room Operator Name Role Phone [facility]well [facility] ician Encounter [facility] Date(s): 01/05/24 - 01/12/24 Pre [facility] [address] [place] [id number] Attending Physician: Omkar CROUCH, Erick Moore Referring Physician: Bryson CROUCH, Kike Mendez Allergies, Adverse Reactions, Alerts Substance Reaction Severity Status penicillins rash Active sulfa drugs hives rash Active Benadryl rash Active Cats hives asthma Active Dogs hives asthma Active Dust hives asthma Active Fish anaphylatic perch Active Latex blistering all over breathing problem Active Mold rash hives asthma Active Nickel Active Pollen hives asthma Active Xyzal 1 Active 1Causes suicidal ideation Medications Breo Ellipta 100 mcg-25 mcg/inh inhalation powder 1 puffs, Inhalation, Daily, # 30 each, 0 Refills, Maintenance, 01/03/23 8:05:00 EDT, Powder, Partial fill upon patient request if the prescription is for a schedule II opioid drug. Start Date: 01/03/23 Status: Ordered Claritin Tablet 10 mg, By Mouth, Daily, Maintenance, 07/26/14 14:01:59 Start Date: 07/26/14 Status: Ordered docusate sodium 100 mg oral tablet 1 tablet = 100 mg, By Mouth, Daily, PRN for constipation, # 60 tablet, 0 Refills, Maintenance, 01/07/24 9:10:00 EST, Tablet, Partial fill upon patient request if the prescription is for a schedule IIopioid drug. Start Date: 01/07/24 Status: Ordered MiraLax oral powder for reconstitution = 17 Gm, By Mouth, Daily, # 238 Gm, 0 Refills, Maintenance, 01/07/24 9:09:00 EST, REC Powder, Partial fill upon patient request if the prescription is for a schedule II opioid drug. Start Date: 01/07/24 Status: Ordered Praluent Pen 75 mg/mL subcutaneous solution 0 Refills, Maintenance, 01/05/24 16:02:00 EST, Partial fill upon patient request if the prescription is for a schedule II opioid drug. Start Date: 01/05/24 Status: Ordered ProAir HFA 2 puffs, Inhalation, 4 times a day, 0 Refills, Maintenance Start Date: 04/01/12 Status: Ordered Tylenol Caplet Extra Strength = 1,000 mg, By Mouth, Every 6 hours, 0 Refills, Maintenance, 09/27/15 10:45:48 Start Date: 09/27/15 Status: Ordered Xolair 150 mg subcutaneous injection = 300 mg, Subcutaneous Infusion, 0 Refills, Maintenance, 01/05/24 16:03:00 EST, Partial fill upon patient request if the prescription is for a schedule II opioid drug. Start Date: 01/05/24 Status: Ordered Problem List Condition Confirmation Course Effective Dates Status H ealth Status Informant Allergic rhinitis Confirmed Active Fibromyalgia Confirmed Active Hyperlipidemia Confirmed Active Severe persistent asthma Confirmed Active Statin intolerance Confirmed Active Procedures Procedure Date Related Diagnosis Body Site Status Bunionectomy on the left; le ft carpal tunnel surgery; deviated septum repair Completed Vital Signs Most recent to oldest [Reference Range]: 1 Height 160.02 cm (01/05/24 11:55 AM) Weight 79.2 kg (01/05/24 11:55 AM) Oxygen Saturation [94-100 %] 97 % (01/05/24 11:55 AM) Pulse Rate [55-90 bpm] 85 bpm (01/05/24 11:55 AM) Body Mass Index [18.5-24.99 kg/m2] 30.93 kg/m2 *>HHI* (01/05/24 11:55 AM) Blood Pressure [90-138/55-84 mm Hg] 137/ 66mm Hg (01/05/24 11:55 AM) Respiratory Rate [16-30 br/min] 20 br/mi n (01/05/24 11:55 AM) Mode of Delivery (Oxygen) Room air (01/05/24 11:55 AM) Blood pressure sites Arm, left (01/05/24 11:55 AM) Weight Obtained Via Standing scale (01/05/24 11:55 AM) Social History Social History Type Response Tobacco Other: Former smoker . Sex EKG study * Event Display: ECG 12-Lead Authored Date: Please click on pdf link to open report * Event Display: ECG 12-Lead Authored Date: Ventricular Rate: 79 BPM Atrial Rate: 79 BPM P-R Interval: 168 ms QRS Duration: 80 ms Q-T Interval: 378 ms QTC Calculation(Bazett): 433 ms P [place]: 35 degrees R [place]: 24 degrees T [place]: 32 degrees Normal sinus rhythm Normal ECG When compared with ECG of 08-AUG-2015 10:54, No significant change was found Confirmed by Azar Kraft ([id number]) on 01/05/2024 12:48:33 PM Hamilton: Azar Kraft Patient Care team information Care Team Personnel Name: Boston Boswell MD , Gifty Position: [facility] Outreach Member Role: PCP Address: Address: [address] [place] [address] Name: Lyndsey LORA, Sabiha Position: S RN Member Role: Primary Care Nurse Care Team Related Persons Name: STEFANI ERAZO Address: home [address] [place] [address] Name: SENG ERAZO Address: home [address] [place] [address]
--- OUTSIDE RECORDS SUMMARY | 2024-02-11 11:34 | XMS_ITS | Patient Health Record ---
Author Organization [facility] Address [address] [place] [address] Care Team Providers Care Upsetter Setter Up Name Role Phone Gifty Rodriguez Primary Care Provider Unavailable Jaiden Avery Unavailable [phone] REASON FOR REFERRAL No Information SOCIAL HISTORY Sex Assigned At : Social History Observation Description Sex Assigned At Unknown PLAN OF TREATMENT No Information Insurance Providers Payer Name Payer Address Payer Phone Subscriber Number Group Number Insured Name Patient Relationship to Insured Coverage Start Date Coverage End Date MEDICARE OF [place] [address] [place] [address] [id number] JOSE ERAZO Self - patient is the insured [facility] [address] [place] [address] [phone] [id number] JOSE ERAZO Self - patient is the insured
--- OUTSIDE RECORDS SUMMARY | 2024-02-11 11:34 | XMS_ITS ---
Author Organization [facility] Address [address] [place] [address] Care Team Providers Care Property Management Bookkeeper Name Role Phone Gifty Rodriguez Primary Care Provider Unavailable Jaiden Avery Unavailable [phone] REASON FOR VISIT cancelled tomorrows appt 1:20 Encounters Encounter Location Date Provider Diagnosis [facility] [address] [place] [address] 11/21/2022 Jaiden Avery PLAN OF TREATMENT No Information
--- OUTSIDE RECORDS SUMMARY | 2024-02-11 11:34 | XMS_ITS ---
Author Organization [facility] Address [address] [place] [address] Care Team Providers Care Miter Cutter Name Role Phone Gifty Rodriguez Primary Care Provider Unavailable Jaiden Avery Unavailable [phone] REASON FOR VISIT Patient presents today for a second opinion Encounters Encounter Location Date Provider Diagnosis [facility] [address] [place] [address] 11/22/2022 Jaiden Avery PLAN OF TREATMENT No Information
--- OUTSIDE RECORDS SUMMARY | 2024-02-11 11:35 | XMS_ITS | Continuity of Care Document ---
Author Organization [facility] 2[facility] Address [address] [place] [address] Care Team Providers Care Transplanter Orchid Name Role Phone CATARINO KAMARA Referring Provider CATARINO KAMARA Primary Care Provide r Assessment No assessment recorded. Plan of Treatment Reminders Order Date Submit Date Provider Last Modified By Organization Details Last Modified Time Details Appointments PT FOLLOW- UP 2023 01:30P M Karen Moreno, ASSISTANT STORE MANAGER TRAINEE Not available Not available Not available PT FOLLOW- UP 2023 02:00P M MEGAN MatamorosT Not available Not available Not available PT FOLLOW- UP 2023 02:00P M Karen Moreno, ASSISTANT STORE MANAGER TRAINEE Not available Not available Not available POST OP 10 2023 12:50P M Kike Massey MD Not available Not available Not available PT FOLLOW- UP 2023 02:30P M Karen Moreno, ASSISTANT STORE MANAGER TRAINEE Not available Not available Not available PT FOLLOW- UP 2023 02:30P M Karen Moreno, ASSISTANT STORE MANAGER TRAINEE Not available Not available Not available Lab None recorde d. Referral None recorde d. Procedures None recorde d. Surgeries None recorde d. Imaging XR, hip + pelvis, unilate ral, 2 or 3 view - 1ST POST OP ALTHR 01/11 AB - left rm 210 2023 024 [email or web address] [facility], [address], [place], [address], 01/27/2024 09:52:34 Medication Orders None recorde d. Patient TargetsNo targets recorded. Patient InstructionsNo instructions [...] a4ajBk vP9nXo QUaueC m3YtLR FvZl JJ8mAn HZtai3 [id number] AC0Kqa 3uFVaK kKiQtr MwF INTERFACE [facility] [address], [address], 01/10/2024 11:37:55 01/10/20 24 12/12/2023 XR, hip + pelvi s, unila teral , 2 or 3 view http:/ [email or web address] ?Encry pted=s hAaTro YD8dLq bEUv6g %2BXZw aYqtaq 0bqfl% 2Fg9IQ a4ajBk vP9nXo QUaueC m3YtLR FvZl JJ8mAn HZtai3 5j4657 AC0Kqa 3uFVaK kKiQtr MwF INTERFACE [facility] [address] [address], [place], [address], 01/10/2024 11:37:56 01/12/20 24 01/12/2024 XR, hip + pelvi s, unila teral , 2 or 3 view No observ ation record ed. [facility] [address] [place], [address], 01/14/2024 10:40:36 01/12/20 24 01/12/2024 XR, hip + pelvi s, unila teral , 2 or 3 view No observ ation record ed. [facility] [address], [place], [address], 01/14/2024 10:40:37 01/26/20 24 01/26/2024 XR, hip + pelvi s, unila teral , 2 or 3 view http:/ [email or web address] ?Encry pted=s hAaTro YD8dLq bEUv6g %2BXZw aYqtaq 0bqfl% 2Fg9IQ a4ajBk vP9nXo QUaueC m3YtLR FvZlgJ JJ8mAn HZtai3 1g5107 AC0Kqa XmAVKS uKiQtr MwF INTERFACE [facility] [address], [place], [address], 01/26/2024 15:07:59 01/26/20 24 01/26/2024 XR, hip + pelvi s, unila teral , 2 or 3 view http:/ [email or web address] ?Encry pted=s hAaTro YD8dLq bEUv6g %2BXZw aYqtaq 0bqfl% 2Fg9IQ a4ajBk vP9nXo QUaueC m3YtLR FvZlgJ JJ8mAn HZtai3 4w7613 AC0Kqa XmAVKS uKiQtr MwF INTERFACE [facility] [address], [place], [address], 01/26/2024 15:08:01 Result Notes None recorded. Problems Name Problem SNOMED Code Status Onset Date Resolution Date Notes Provider Name and Address Organization Details Recorded Time Osteoarthr itis of left hip joint 5924916906140 08 Active 2023 Kike Massey MD [address], [place], [address] , [facility] 4 17:02:30 Problem Notes None recorded. Procedures Surgical History Date Name Laterality Status Provider Name and Address Organization Details Recorded Time 4 94388 Therapeutic Exercise (1:1) completed Justin Chaparros, DPT [address], [place], [address], [facility] 02/03/2024 08:29:38 4 70324 Therapeutic Exercise (1:1) completed Justin Chaparros, DPT [address], [place], [address], [facility] 01/28/2024 07:47:25 4 12433: Low complexity PT Eval completed Justin Garcia, DPT [address], [place], [address], [facility] 01/28/2024 07:47:35 4 G8417 BMI Above Upper Parameters, F/U Documented completed Justin Garcia, DPT [address], [place], [address], [facility] 01/28/2024 07:47:31 4 G8427 Current Medication Documented completed Justin Garcia, DPT [address], [place], [address], [facility] 01/28/2024 07:47:28 4 28983 Therapeutic Exercise (1:1) completed Justin Garcia, DPT [address], [place], [address], [facility] 12/30/2023 10:10:01 4 69125: Low complexity PT Eval completed Justin Garcia, DPT [address], [place], [address], [facility] 12/30/2023 10:10:03 4 G8417 BMI Above Upper Parameters, F/U Documented completed Justin Chaparros, DPT [address], [place], [address], [facility] 12/29/2023 16:02:16 4 G8427 Current Medication Documented completed Justin Garcia DPT [address], [place], [address], [facility] 12/29/2023 16:02:12 Ankle/Foot Surgery completed [facility] 12/12/2023 13:32:53 Hand Surgery completed [facility] 12/12/2023 13:32:53 Imaging Results None recorded. Procedure Notes None recorded. Medical Equipment None Reported. Allergies Allergen ID Allergen Name Allergen Category Reaction Reaction Severity Criticality Documentation Date Start Date Code Code System Note Provider Name and Address Organization Details Recorded Time 564480 latex environme nt,medica tion anaphylax is Not available Not available 10/07/2023 63241 91 RxNorm BRENT OZUNA-M EJIA null, [facility] 4 16:09:10 534420 Medicinal product containin g penicilli n and acting as antibacte rial agent (product) medicatio n Not available Not available Not available 10/07/2023 69977 05 SNOMED BRENT OZUNA-M EJIA null, [facility] 4 16:10:22 863345 Benadryl medicatio n Not available Not available Not available 10/07/2023 70445 7 RxNorm BRENT OZUNA-M EJIA null, [facility] 4 16:10:29 721275 Xyzal medicatio n Not available Not available Not available 10/07/2023 17953 5 RxNorm BRENT OZUNA-M EJIA null, [facility] 4 16:10:55 726409 Substance with sulfonami de structure and antibacte rial mechanism of action (substanc e) medicatio n Not available Not available Not available 10/07/2023 67670 8003 SNOMED BRENT OZUNA-M EJIA null, [facility] 4 16:11:07 Medications Name Sig Start Date [...] Updated DateTime 01/26/2024 162.56 cm 30.2 kg/m2 16589.26 g Valerie Nancy [facility] 01/26/2024 14:52:14 Social History Question Answer Notes LastModified by Organizat ion Details LastModified Time Tobacco Smoking Status Never Smoker BRENT OZUNANAT ferrell [facility] 10/07/2023 16:12:42 What Is [...] Diagnosis/Indication Diagnosis SNOMED-CT Code Diagnosis ICD10 Code [id number] MD Mayte Umanzor PT [address] [place] [address] 12/29/2023 15:08:24 12/29/2023 15:45:24 Osteoarthritis of hip 175550474 M16.12 [id number] ELKIN Magallanes [address] [place] [address] 01/06/2024 11:03:47 02/04/2024 03:58:44 Osteoarthritis of left hip joint 6402460290 71045 M16.12 7144187 RUFUS Gomez 2nd floor [address] [place] [address] 01/26/2024 14:46:48 01/26/2024 16:45:57 History of total replacement of left hip joint 6187605634 346462 Z96.642 Health Concerns Section Related Observation LastModified by Organization Detai ls LastModified Time None Recorded Concern Status LastModified by Organization Details LastModified Time None Recorded Payers Encounter Date Sequence Insurance Name Policy Number Policy Guzman Covered Member ID Guzman Member ID Guarantor Name 01/26/2024 1 [place] [employer] Leslie Alvaradout [id number] Leslie Rausch 01/26/2024 2 [place] [facility] Cassidy Washut [id number] Leslie Rausch Notes Date Note Type Note Provider Name and Address Organization Details Recorded Time 01/26/2024 text/html I am seeing the patient [...] X-rays ordered, obtained, and reviews today at [facility], two views, reveal maintained alignment of the prosthetic components, no fracture or dislocation,excell ent interface ASSESSMENT Progressing nicely two weeks status post {{Left* Right}} total hip arthroplasty. PLAN Reviewed total hip precautions with the patient, who showed good understanding, and will continue to monitor for any evidence of infection, Follow-up in one month for re-evaluation, sooner if there is any complications. Christian Dickerson PA-C [address], [place], [address], [facility] 01/26/2024 16:45:56 OBGyn Episode No OBEpisode recorded.
== END 2024-02-09 19:08 | disposition home or self-care (01) | DRG 373 ==
LOC: HO.ED 09:09 → HO.EDOVER 11:01 → HO.S3 11:53
PROVIDERS: Internal Medicine; Admitting Provider Family Medicine; Emergency Provider Emergency Medicine Emergency Medical Services; PCP Family Medicine; Visit Provider Hospitalist
DX: A04.5 Campylobacter enteritis (principal); J45.30 Mild persistent asthma, uncomplicated; M79.7 Fibromyalgia; Z20.822 Contact with and (suspected) exposure to COVID-19; Z87.891 Personal history of nicotine dependence; Z79.82 Long term (current) use of aspirin; Z79.899 Other long term (current) drug therapy
CPT/HCPCS: 0241U; 36415; 80048; 80076; 81001; 83690; 85025; 87493; 99285; J1650; J2270; J2405; J2765

== ENCOUNTER → 2024-02-07 10:52 | Outpatient (BNV) | payer MEDICARE, MEDICAID, SELFPAY | PROVIDERS: Admitting Provider Family Medicine; Emergency Provider Emergency Medicine Emergency Medical Services; PCP Family Medicine; Visit Provider Family Medicine | DX: A04.5 Campylobacter enteritis (principal) | CPT/HCPCS: 99223; 99232 ==

== ENCOUNTER 2024-09-28 13:57 | Emergency (ER) | payer MEDICARE, MEDICAID, SELFPAY ==
[2024-09-28 14:04] VITALS: BP 140/67; PULSE 78; RESP 18; TEMP 36.6; O2SAT 98; BMI 28.3
--- NOTE | 2024-09-28 14:25 | ED.GENADULT ---
HPI - General Adult General Chief complaint: Animal Bite Stated complaint: Bat scratch, sent by PCP Time Seen by Provider: 09/28/24 14:07 Source: patient Mode of arrival: ambulatory Limitations: no limitations History of Present Illness ED Provider: Ines Bojorquez NP HPI narrative: Patient is a 74-year-old female who presents to the emergency department for evaluation. She reports that while she was in bed last night of bat had flown in and landed onto the bed, she is not certain whether it may have scratched her right forearm. She does not have any visible discernible scratch or bite arenas. However she contact your primary care doctor today did discuss this with them and she was advised to come to emergency department to receive rabies vaccination. She is unaware of the date of her last tetanus vaccination believes it is likely greater than 10 years ago. Related Data Home Medications ?Medication ?Instructions ?Recorded ?Confirmed alirocumab 75 mg/mL subcutaneous 75 mg subcut Q2W 02/07/24 02/07/24 pen injector (Praluent Pen) aspirin 325 mg tablet 325 mg PO BID 02/07/24 02/07/24 coenzyme Q10 50 mg tablet 50 mg PO DAILY 02/07/24 02/07/24 lactobacillus combination no.4 3 3,000 mmu cells PO DAILY 02/07/24 02/07/24 billion cell capsule (Probiotic) multivitamin 1 tab PO DAILY 02/07/24 02/07/24 Held on 02/09/24. Instructions: Resume on 02/16/24. ondansetron 8 mg disintegrating 8 mg PO TID 02/07/24 02/07/24 tablet pantoprazole 40 mg tablet,delayed 40 mg PO DAILY 02/07/24 02/07/24 release Previous Rx's ?Medication ?Instructions ?Recorded dicyclomine 20 mg tablet 20 mg PO TID #20 tabs 02/07/24 Allergies Allergy/AdvReac Type Severity Reaction Status Date / Time latex Allergy Severe Anaphylaxis Verified 09/28/24 14:07 diphenhydramine (From AdvReac Intermediate rash Verified 09/28/24 14:07 Benadryl) levocetirizine (From Xyzal) AdvReac Intermediate depression Verified 09/28/24 14:07 Penicillins AdvReac Intermediate rask Verified 09/28/24 14:07 Sulfa (Sulfonamide AdvReac Intermediate rash Verified 09/28/24 14:07 Antibiotics) perch Allergy Unknown Uncoded 09/28/24 14:07 Review of Systems Review of Systems: Yes all other systems are reviewed and are negative [facility] Past Medical History Attestation statement: The following information was validated with the patient. 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 No acute distress.?Normal affect. Eyes: Pupils equal, round and reactive to light.? ENT: Pharynx normal.?? Neck: Normal inspection.? Neck supple.?? CVS: Heart sounds normal. Normal heart rate and rhythm.? Pulses normal.?? Respiratory: No respiratory distress.? Lung sounds clear to auscultation bilaterally?? Abdomen: Soft and non-tender. Normoactive bowel sounds. Skin: Skin warm and dry.? Normal skin color.? Extremities: No lower extremity edema.? No calf ttp? Neuro: Moves all extremities spontaneously. Sensation intact bilaterally. No focal neuro deficits. Ambulates with normal steady gait. Vital Signs: Vital Signs - 24 hr 09/28/24 14:04 09/28/24 15:41 09/28/24 17:06 Temperature 98 F 98.7 F 98.2 F Pulse Rate 78 66 63 Respiratory Rate 18 16 12 Blood Pressure 140/67 H 134/80 139/69 Pulse Oximetry 98 97 98 Oxygen Delivery Method Room Air Room Air 09/28/24 17:10 Temperature 98.2 F Pulse Rate 63 Respiratory Rate 12 Blood Pressure 139/69 Pulse Oximetry 98 Oxygen Delivery Method BMI result Body Mass Index 28.3 Course Reevaluation(s) Reevaluation #1: Nursing staff have me me aware that at this time patient was reporting to them palpitations. Upon re-evaluation the patient states that she has been experiencing ongoing issues with palpitations over the past 1-2 months. She has been followed up outpatient with [facility]. She states that she wore a Holter monitor for approximately 2 weeks. She felt as though the Holter monitor may have been inaccurate as the electrodes were frequently slipping off of her. Ultimately when she followed up with Cardiology she was advised that she was having pauses 1 of which lasted approximately 14 seconds, and when she was told that she would need a pacemaker and a loop recorder she decided that she wanted to have a 2nd opinion as she did not feel as though this was accurate unlikely due to detachment of the electrodes. She states she was also told that she was having episodes of atrial fibrillation, not certain how frequent or how long these were lasting for. She states that she was not advised that she would require any rate control medication nor any anticoagulants, she has continued taking a low-dose aspirin. She does not have an appointment with a new customs verifier until January of 2025. [facility]. She does admit that she feels as though her palpitations are more frequent since last night, she is not certain whether this is due to the exposure to the bat but expresses concern about the frequency throughout today as well. Advised to with the patient Will obtain CBC to evaluate for leukocytosis/ anemia, CMP and lipase to evaluate for abnormal electrolytes /abnormal renal function/ abnormal hepatic/biliary function, TSH and free T4 EKG and troponin to evaluate for ischemia/ACS. And if unremarkable feel that she would be appropriate to continue outpatient follow-up as scheduled and reviewed worrisome signs and symptoms that would warrant more immediate evaluation in the emergency department. Time: 15:00 Reevaluation #2: CBC is without leukocytosis, has mild normocytic anemia that does not meet transfusion criteria, no thrombocytopenia. No significant electrolyte derangement. No ZOHRA. Magnesium is normal. LFTs unremarkable. High sensitive troponin below detectable limits, ECG revealing normal sinus rhythm with ventricular rate of 69, no real BECKY, QTC 420 MS, no ST-elevation. BNP within normal range no clinical signs of volume overload that would suggest CHF. TSH within normal range. Tick panel including Lyme screening pending. Medications Administered Discontinued Medications Generic Name Dose Route Start Last Admin Trade Name Freq PRN Reason Stop Dose Admin Diphtheria/Tetanus/Acell Pertussis 0.5 ml 09/28/24 14:12 09/28/24 15:22 Diphth,Pertus(Acell),Tet Adult 0.5 Ml Syringe IM 09/28/24 14:13 0.5 ml .ONCE ONE Administration Rabies Immune Globulin 1,498 unit 09/28/24 14:12 09/28/24 15:20 Rabies Immune Globulin/Pf 900 Unit/3 Ml Vial 20 unit/kg (1498 unit) 09/28/24 14:13 1,498 unit IM Administration ONCE ONE Rabies Vaccine 1 ml 09/28/24 14:12 09/28/24 15:19 Rabies Vaccine (Pcec)/Pf 1 Ml Vial IM 09/28/24 14:13 1 ml .ONCE ONE Administration Medical Decision Making Medical Decision Making MDM Narrative: Patient is a 74-year-old female with past medical history of asthma, hypercholesterolemia meningioma, arthritis who presents emergency department for evaluation after exposure to a bat as per HPI with concern for rabies from a bat. Overall she is well-appearing. No apparent bite/injury. While in the emergency department today she received rabies immune globulin, first dose of rabies vaccination series in addition to tetanus vaccine. Made aware of worrisome signs and symptoms that would warrant re-evaluation emergency department, advised outpatient follow-up with infusion center for remainder of rabies vaccination series. Differential Diagnosis Differential Diagnoses: The differential diagnosis associated with the presentation includes Lab Data [facility] Lab Attestation statement: I reviewed the patient's lab results. (See course narrative) 09/28/24 15:39 09/28/24 15:39 Labs: Lab Results 09/28/24 Range/Units 15:39 WBC 5.0 (4.8-10.8) X10*3/uL RBC 4.01 L (4.20-5.50) X10*6/uL Hgb 11.4 L (12.0-16.0) g/dl Hct 34.0 L (37.0-47.0) % MCV 84.8 (80.0-98.0) fL MCH 28.4 (27.0-33.0) pg MCHC 33.5 (31.0-35.0) g/dl RDW 14.0 (11.0-16.0) % Plt Count 319 (160-400) X10*3/uL MPV 9.0 L (9.4-12.3) fL Immature Gran % (Auto) 0.2 (0.0-0.4) % Neut % (Auto) 45.7 (45-73) % Lymph % (Auto) 38.9 (20-40) % Eaton % (Auto) 9.2 (2-11) % Eos % (Auto) 4.8 H (0-4) % Baso % (Auto) 1.2 (0-2) % Lymph # (Auto) 1.9 (1.2-4.9) X10*3/uL Eaton # (Auto) 0.5 (0.1-1.2) X10*3/uL Eos # (Auto) 0.2 (0.0-0.4) X10*3/uL Baso # (Auto) 0.1 (0.0-0.2) X10*3/uL Abs Immat Gran (auto) 0.01 (0.00-0.03) X10*3/uL Absolute Neuts (auto) 2.3 (2.0-8.3) x10*3/uL Absolute Nucleated RBC 0.000 (0.0-0.012) X10*3/uL Nucleated RBC % (auto) 0.0 (0.0-0.2) /100WBC Sodium 142 (135-145) mmol/L Potassium 3.9 (3.3-5.1) mmol/L Chloride 110 H (96-108) mmol/L Carbon Dioxide 24 (22-29) mmol/L Anion Gap 12 (12-20) BUN 18 H (9-16) mg/dL Creatinine 0.81 (0.5-1.4) mg/dL Estim Creat Clear Calc 61.3 Estimated GFR > 60 Random Glucose 88 (60-115) mg/dL Calcium 9.0 (8.4-10.2) mg/dL Magnesium 2.3 (1.6-2.6) mg/dL Total Bilirubin 0.3 (0.0-1.0) mg/dL AST 24 (5-31) U/L ALT 21 (0-31) U/L Alkaline Phosphatase 78 (39-117) U/L Troponin I High Sens < 2.7 (<3.5-17.0) ng/L B-Natriuretic Peptide 21 (<100) pg/mL Total Protein 7.1 (6.5-8.0) g/dL Albumin 4.4 (3.5-5.0) g/dL TSH 1.72 (0.32-4.0) uIU/mL Independent Interpretation I performed an independent interpretation of an: EKG (See course narrative) External Record Review External record reviewed: Outpatient record Prescription Management I considered prescription management with: Other Chronic Conditions Patient?s care impacted by: Other (See course narrative) Discharge Plan Discharge Clinical Impression: Exposure to bat without known bite, Heart palpitations Patient Disposition: Home, Self-Care Instructions: Rabies Vaccine (By injection), Rabies Immune Globulin (By injection), Heart Palpitations (ED), Rabies (ED) Additional Instructions: Rabies follow up with the [facility]: Upon discharge from the ED today, you will be contacted by the Infusion Center to schedule your follow up Rabies vaccines. You will need a total of 3 more injections. If for some reason you do not receive a call, please call the Infusion Center directly at [phone]. Follow up with your primary care provider after completion of the vaccine to have a titer drawn to ensure the vaccines effectiveness. Regarding your palpitations, your blood work today was overall very reassuring, you are mildly anemic but nothing that would indicate requiring a blood transfusion. Your EKG did not show any arrhythmia today, no indication of atrial fibrillation however as discussed this is only capturing the moment in time. It is recommended that you follow-up outpatient with your primary care doctor as well as 2nd opinion for Cardiology as you have scheduled regarding the ongoing palpitations. I additionally sent testing for tick-borne illnesses and Lyme disease as this can also cause cardiac symptoms as well this testing not come back today, will result in a few days and if there was any positive test you will receive a phone call in regards to this. You may feel free to return to emergency department any new or worsening symptoms or concerns. Prescriptions: No Action dicyclomine 20 mg tablet 20 mg PO TID Qty: 20 0RF multivitamin Tablet 1 tab PO DAILY aspirin 325 mg Tablet 325 mg PO BID ondansetron 8 mg tablet,disintegrating 8 mg PO TID pantoprazole 40 mg tablet,delayed release (DR/EC) 40 mg PO DAILY coenzyme Q10 50 mg Tablet 50 mg PO DAILY Probiotic 3 billion cell Capsule 3,000 mmu cells PO DAILY Rx Instructions: administer with a meal Praluent Pen 75 mg/mL pen injector 75 mg subcut Q2W Rx Instructions: FRIDAY Referrals: Gifty Sterling MD [Primary Care Provider, Family Practice] Interventions: ED Discharge Assessment Last Done: 09/28/24 17:10 Discharge Date/Time: 09/28/24 17:10 Print Language: Telugu
--- NOTE | 2024-09-28 15:12 | ECG_ITS ---
Test Reason : palpitations Blood Pressure : */* mmHG Vent. Rate : 69 BPM Atrial Rate : 69 BPM P-R Int : 190 ms QRS Dur : 82 ms QT Int : 392 ms P-R-T Axes : 2 0 21 degrees QTcB Int : 420 ms Normal sinus rhythm Normal ECG When compared with ECG of 02-Sep-2021 14:07, Sinus rhythm has replaced Ectopic atrial rhythm Referred By: Ines Bojorquez Electronically Signed By: ELVIN PADILLA MD
[2024-09-28] MEDS: Rabies Vaccine (PCEC)/PF 1 ML VIAL IM (15:19)
[2024-09-28] MEDS: Rabies Immune Globulin/PF 900 UNIT/3 ML VIAL 1498 UNIT IM (15:20)
[2024-09-28] MEDS: Diphth,Pertus(ACell),Tet Adult 0.5 ML SYRINGE IM (15:22)
[2024-09-28 15:41] VITALS: BP 134/80; PULSE 66; RESP 16; TEMP 37.1; O2SAT 97
[2024-09-28 15:48] LABS: MANUAL DIFF FLAG NO
[2024-09-28 15:49] LABS: Hematocrit 34.0 % (37.0-47.0); Hemoglobin 11.4 g/dl (12.0-16.0); Imm Gran Abs Auto 0.01 X10*3/uL (0.00-0.03); Imm Gran Pct Auto 0.2 % (0.0-0.4); Lymphocytes Absolute Auto 1.9 X10*3/uL (1.2-4.9); Mean Corpuscular HGB Conc 33.5 g/dl (31.0-35.0); Mean Corpuscular Hemoglobin 28.4 pg (27.0-33.0); Mean Corpuscular Volume 84.8 fL (80.0-98.0); NRBC Abs Auto 0.000 X10*3/uL (0.0-0.012); NRBC Pct Auto 0.0 /100WBC (0.0-0.2); Platelet Count 319 X10*3/uL (160-400); Red Blood Count 4.01 X10*6/uL (4.20-5.50); White Blood Count 5.0 X10*3/uL (4.8-10.8)
--- NOTE | 2024-09-28 15:50 | PC.NURSE ---
Back documentation This Nurse went into pt's room for p teaching about rabies vaccine, pt states to this nurse she's having palpations pt stated that she's had tos fora while but todays it's progressively worse. Provider Ines Bojorquez BRAND COORDINATOR notified, Pt placed on bedside monitor worker, 20G access obtained in Left upper arm, EKG done, Labs drawn.PT Axo3 call mccormick within reach vs updated warm blanket given.
[2024-09-28 16:09] LABS: Alanine Aminotransferase 21 U/L (0-31); Albumin Level 4.4 g/dL (3.5-5.0); Alkaline Phosphatase 78 U/L (39-117); Anion Gap 12 (12-20); Aspartate Amino Transferase 24 U/L (5-31); B Type Natriuretic Peptide 21 pg/mL (<100); Blood Urea Nitrogen 18 mg/dL (9-16); Calcium 9.0 mg/dL (8.4-10.2); Carbon Dioxide 24 mmol/L (22-29); Chloride 110 mmol/L (96-108); Creatinine Clr Calc Pharmacy 61.3; Estimated Glomerular Filt Rate > 60; Magnesium 2.3 mg/dL (1.6-2.6); Potassium 3.9 mmol/L (3.3-5.1); Sodium 142 mmol/L (135-145); Total Protein 7.1 g/dL (6.5-8.0)
[2024-09-28 16:16] LABS: Troponin-I High Sensitivity < 2.7 ng/L (<3.5-17.0)
[2024-09-28 17:06] VITALS: BP 139/69; PULSE 63; RESP 12; TEMP 36.8; O2SAT 98
[2024-09-28 17:10] VITALS: BP 139/69; PULSE 63; RESP 12; TEMP 36.8; O2SAT 98
[2024-09-29 13:38] LABS: Lyme Abs Screen <0.90 index
[2024-09-29 17:45] LABS: A. Phagocytphilium DNA,RT-PCR NOT DETECTED (NOT DETECTED); Babesia Microti DNA, RT-PCR NOT DETECTED (NOT DETECTED); Borrelia Miyamotoi,DNA RT-PCR NOT DETECTED (NOT DETECTED); E.Chaffeensis DNA RT-PCR NOT DETECTED (NOT DETECTED); Lyme(Borrelia ssp)DNA RT-PCR NOT DETECTED (NOT DETECTED)
== END 2024-09-28 17:10 | disposition home or self-care (01) ==
PROVIDERS: Nurse Practitioner Family; Emergency Provider Emergency Medicine; PCP Family Medicine
DX: Z20.3 Contact with and (suspected) exposure to rabies (principal); Z23 Encounter for immunization; R00.2 Palpitations
CPT/HCPCS: 36415; 80053; 83735; 83880; 84443; 84484; 85025; 86617; 86618; 87468; 87469; 87478; 87484; 87798; 90375; 90471; 90675; 90715; 93005; 96372; 99284

== ENCOUNTER → 2024-09-28 15:12 | Outpatient (BNV) | payer MEDICARE, MEDICAID, SELFPAY | PROVIDERS: Emergency Provider Emergency Medicine; PCP Family Medicine; Visit Provider Internal Medicine Cardiovascular Disease | DX: R00.2 Palpitations (principal) | CPT/HCPCS: 93010 ==

== ENCOUNTER 2024-10-01 10:59 | Outpatient (AMB) | payer MEDICARE, MEDICAID, SELFPAY ==
[2024-10-01 11:00] VITALS: BP 120/80; PULSE 87; BMI 29.1
--- NOTE | 2024-10-01 11:00 | MHC.OFFVIS ---
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 Required: No Allergies latex Allergy (Severe, Verified 09/28/24 14:07) Anaphylaxis diphenhydramine (From Benadryl) Adverse Reaction (Intermediate, Verified 09/28/24 14:07) rash levocetirizine (From Xyzal) Adverse Reaction (Intermediate, Verified 09/28/24 14:07) depression Penicillins Adverse Reaction (Intermediate, Verified 09/28/24 14:07) rask Sulfa (Sulfonamide Antibiotics) Adverse Reaction (Intermediate, Verified 09/28/24 14:07) rash perch Allergy (Uncoded 09/28/24 14:07) Unknown Medication List - Last Reconciled 10/02/24 by Sumit Couch MD aspirin (Adult Aspirin Regimen) 81 mg PO DAILY cholecalciferol (vitamin D3) 25 mcg PO DAILY coenzyme Q10 50 mg PO DAILY docusate sodium (Colace) 100 mg PO DAILY vhzxcshqvme-rgdofzucn-sujcmtho 200-62.5-25 mcg (Trelegy Ellipta) 1 ea inhalation DAILY lactobacillus combination no.4 (Probiotic) 3,000 mmu cells PO DAILY multivitamin 1 tab PO DAILY Held on 02/09/24. Instructions: Resume on 02/16/24. ondansetron 8 mg PO TID PRN polyethylene glycol 3350 (Miralax) 17 grams PO DAILY HPI Comments Details: Leslie comes for 2nd opinion consultation that was a recent event monitor that was with confusing result. Patient is a 74-year-old female with prior history of significant hyperlipidemia which appears to be heterozygous familial hypercholesterolemia no tolerance to multiple different statins. She was subsequently last December given her risk factors and prior to surgery was recommended to be started on Praluent therapy. She then underwent a surgery and subsequently developed pulsatile tinnitus which continued. She did not initially correlate her pulsatile tinnitus to her Praluent dosing. She subsequently underwent a event monitor which was done in August. She subsequently was called in urgently for an appointment because the event monitor was suggestive of a 12nd pause. This is during daytime and at time and patient was taken his sharp. She says she did not have her event monitor on throughout the time because she has developed a significant blistering and allergic reaction and significant sweating led to multiple times the monitor falling down. There was also possible reported event of atrial fibrillation. She had no symptoms of palpitations. No symptoms of lightheadedness syncope. She has never had prior history of syncope. Patient was confused about the diagnose as and they had recommended her to have a pacemaker placed but she is not certain and she wanted a 2nd opinion. She subsequently was felt that the findings on the event monitor were artifactual and was advised to have implantable loop recorder placement. She is not very keen on doing any significant further workup or implantable devices due to her marked allergic reaction to different agents. She says she has allergic reaction since she was diagnose with latex allergies in the and since then has developed a systemic allergic syndrome with a allergic to multiple medications and different environmental exposures. Subsequently she forgot to take Praluent for a dose and her pulsatile tinnitus disappeared. Since then she has stopped her Praluent and her pulsatile tinnitus has developed. She has never had any palpitations. She was then prescribed Repatha but has not started it as yet. She says a pulsatile tinnitus was not life-limiting she would prefer not to have it. She is very active and has no exertional chest pain or shortness of breath. Because of hyperlipidemia in the past she has had a myocardial perfusion imaging which has been within normal limits. She also had an echocardiogram couple years ago which was within normal limits. She has never had any vascular events. 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 Review of Systems Const Denies chills, Denies daytime sleepiness, Denies fatigue, Denies fever(s), Denies frequent falls, Denies poor appetite, Denies snoring, Denies stops breathing during sleep, Denies weakness, Denies weight gain and Denies weight loss Eyes Denies loss of vision ENT Denies dizziness and Denies hearing loss Card Denies chest pain, Denies claudication, Denies leg edema, Denies lightheadedness, Denies palpitations, Denies dyspnea, Denies dyspnea on exertion and Denies orthopnea Resp Denies cough, Denies excessive phlegm production, Denies dyspnea, Denies dyspnea on exertion, Denies snoring and Denies wheezing GI Denies abdominal pain, Denies hematochezia, Denies change in bowel habits, Denies nausea and Denies vomiting Denies urinary frequency and Denies dysuria Musc Denies arthralgias, Denies muscle weakness, Denies numbness and Denies other (frequent falls) Skin/Breast Denies nail changes and Denies rash Neuro Denies Abnormal speech present, Denies dizziness, Denies frequent falls, Denies loss of vision, Denies memory loss, Denies numbness and Denies weakness Psych Denies depression and Denies memory loss Endo Denies fatigue and Denies palpitations Jono/Lymph Reports easy bruising and Reports other (anemia) Aller/Immun Denies wheezing Physical Exam Vital Signs: Last Vital Signs Pulse 87 10/01/24 11:00 BP 120/80 10/01/24 11:00 BMI result Body Mass Index 29.1 Const General: cooperative, comfortable, no acute distress, alert, awake and Physically active Nutritional Appearance: overweight Orientation/consciousness: patient oriented x3 Limitations: no limitations HEENT Head: Yes normocephalic and Yes atraumatic Neck Neck: Yes trachea midline, Yes supple and Yes no JVD Resp Effort & Inspection: normal respiratory effort Auscultation: clear to auscultation bilaterally Cardio Jugular venous distension: no JVD Palpation: normal PMI Rate: regular rate Rhythm: regular rhythm Heart sounds: S1 normal heart sound present, S2 normal heart sound present, no click, no gallops, no murmurs and no rubs GI Auscultation: normal bowel sounds Skin General skin exam: no rashes or lesions noted Neuro General: patient oriented x3 and no focal motor deficits Speech: No Abnormal speech present Extrem General: Yes no clubbing, cyanosis or edema Psych Appearance: grossly normal Office Procedures EKG Details: EKG shows normal sinus rhythm with normal EKG 56126-[id number], Complete Assessment & Plan Assessment & Plan (1) Familial hypercholesterolemia: Code(s): E78.01 - Familial hypercholesterolemia Category: Medical Plan: Patient marked hyperlipidemia with intolerance to statin therapy which she has stopped long time ago. She has also developed possible side effect to Praluent therapy with pulses retinitis. This is stopped since she has stopped per Praluent therapy and she is wishing not to go back on Praluent therapy. She has not started her Repatha therapy. I suggest her to undergo a coronary calcium score to further guide treatment. It is possible that she might not have significant coronary atherosclerosis and then treatment would be conservative although from primary prevention guidelines she is a candidate for lipid lowering given her markedly elevated LDL cholesterol. This was discussed with her. She is agreeable to undergo coronary calcium score to further guide treatment. If she has markedly elevated coronary calcium score may require further evaluation with coronary angiogram. (2) Pulsatile tinnitus: Code(s): H93.A9 - Pulsatile tinnitus, unspecified ear Plan: Pulsatile tinnitus which has now resolved since stopping Praluent therapy. She is quite happy with it. She had never had any other cardiac symptoms including no lightheadedness, syncope, palpitations. Event monitor seems to be artifactual as she had no symptoms during 12nd pause and no symptoms of palpitation. I have suggested that she probably invest in his smart watch that will detect any change in his heart rate or rhythm and then guide further treatment options if she has significant arrhythmias. If she has any cardiac symptoms she is advised to report to me. Otherwise follow up in the clinic in 1 year's time, sooner p.r.n.. Thank you for allowing me to partake in his care Orders: Orders CT Coronary Calcium Score 1 Week E78.5 - Hyperlipidemia, unspecified CT Coronary Calcium Score 1 Week E78.01 - Familial hypercholesterolemia, E78.5 - Hyperlipidemia, unspecified Coding Level of Care Code New Pt Level 4 (55602) Complex EM visit Add On G2211 Diagnoses Familial hypercholesterolemia E78.01 Pulsatile tinnitus H93.A9 CPT Codes EKG - CPT: 43100-Gicdrudfapvhshqal, Complete ([id number])
--- OUTSIDE RECORDS SUMMARY | 2024-10-01 11:06 | XMS_ITS | Clinical Summary ---
Author Organization [facility] Address [address] [place] [address] Care Team Providers Care Physician Extender Name Role Phone Gifty Parekh MD Primary Care Prov ider Social History Tobacco Use Types Packs/Day Years Used Date Smoking Tobacco: Never Assessed Sex and Gender Information Value Date Recorded Sex Assigned at Not on file Gender Identity Not on file Sexual Orientation Not on file Plan of Treatment Health Maintenance Due Date Last Done Comments Hepatitis C Screening 1950 COVID-19 Vaccine (#1) 02[birth year]20/1951 Depression Screening 1962 Preventative Health Evaluation 08/20/1969 DTap / Tdap / Td (1 - Tdap) 08/20/1970 Colon Cancer Screening (Colonoscopy) 08/20/1996 Breast Cancer Screening (Mammogram) 08/20/2001 Shingrix-Zoster Vaccine (1 of 2) 08/20/2001 Fall Risk Assessment 08/20/2016 Osteoporosis Screening (DEXA Scan) 08/20/2016 Pneumococcal Vaccine (1 of 1 - PCV) 08/20/2016 Influenza Vaccine (#1) 2024 RSV Adult > 60+ Yrs or Pregn ant (1 - 1-dose 75+ series) 08/20/2026 Hepatitis B Vaccines Aged Out No long er eligible based on patient's age to complete this topic RSV Ped < 20 months Aged Out No longe r eligible based on patient's age to complete this topic Care Teams Physician Extender Relationship Specialty Start Date End Date Gifty Parekh MD [address] [place] [id number] PCP - General Family Medicine 07/07/20
--- OUTSIDE RECORDS SUMMARY | 2024-10-01 11:06 | XMS_ITS | Encounter Summary ---
Author Organization [facility] Address [address] [place] [phone] Phone Care Team Providers Care Map Maker Name Role Phone Gifty Parekh MD Primary Care Prov ider Encounter Details Date Type Department Care Team (Late Contact Info) Description 02/16/2020 Procedure Pass [facility] Endoscopy Admitting Dept Virtual Department [address] [place] [phone] Social History Tobacco Use Types Packs/Day Years Used Date Smoking Tobacco: Former Cigarettes Q uit: 1976 Smokeless Tobacco: Never Alcohol Use Standard Drinks/Week Comments Yes 0 (1 standard drink = 0.6 oz pur e alcohol) Comments No Sex and Gender Information Value Date Recorded Sex Assigned at Female 01/09/2018 5:52 PM EST Legal Sex Female 5:14 PM EST Gender Identity Female 01/09/2018 5:52 PM EST Sexual Orientation Straight 01/09/2018 5: 52 PM EST documented as of this encounter Plan of Treatment Upcoming Encounters Date Type Department Care Team (Late Contact Info) Description 10/06/2024 1:30 PM EDT Infusion [facility] [address] [place] [phone] Zen Coates, DO [address] [facility], [address] [place] [address] [email or web address] 11/03/2024 1:30 PM EDT Infusion [facility] Infusion [facility] [address] [place] [address] Zen Coates, DO [address] [facility], [address] [place] [phone] [email or web address] 12/01/2024 1:30 PM EDT Infusion [facility] Medical Infusion [address] [address] Zen Coates, DO [address] [place] [address], [address] [place] [phone] [email or web address] 12/13/2024 12:00 PM EDT Office Visit [facility] [address] [facility] 3rd Floor, [address] [place] [phone] Messi Kwon, [address] [place] [phone] 12/29/2024 1:30 PM EDT Infusion [facility] Infusion [facility] [address] [place] [phone] Zen Coates, DO [address] [place] [address], [address] [place] [phone] [email or web address] 01/26/2025 1:30 PM EST Infusion [facility] Infusion [address] [address] Zen Coates, DO [address] [place] [address], [address] [place] [phone] [email or web address] 03/01/2025 1:30 PM EST Infusion [facility] Infusion [facility] [address] [place] [address] Zen Coates, [address], [address] [place] [phone] [email or web address] documented as of this encounter Visit Diagnoses Not on filedocumented in this encounter Additional Health Concerns Infection Onset Date Last Indicated Resolved Time C. diff 06/25/2022 06/25/2022 07/25/2022 1:21 AM EDT documented as of this encounter Care Teams Map Maker Relationship Specialty Start Date End Date Gifty Parekh MD [address] [place] [phone] [email or web address] PCP - General Family Medicine 02/03/17 documented as of this encounter Additional Source Comments The information contained in this document represents components of the legal health record. It is not the complete legal health record.[facility]
== END 2024-10-01 13:05 | disposition home or self-care (01) ==
LOC: HO.HCS 10:59
PROVIDERS: Visit Provider Internal Medicine Cardiovascular Disease
DX: E78.01 Familial hypercholesterolemia (principal); H93.A3 Pulsatile tinnitus, bilateral; R94.39 Abnormal result of other cardiovascular function study
CPT/HCPCS: 93010; 99214; G2211

== ENCOUNTER → 2024-10-01 10:59 | Outpatient (BNVA) | payer MEDICARE, MEDICAID, SELFPAY | PROVIDERS: Visit Provider Internal Medicine Cardiovascular Disease | DX: E78.01 Familial hypercholesterolemia (principal); H93.A9 Pulsatile tinnitus, unspecified ear | CPT/HCPCS: 93005; 99212 ==

== ENCOUNTER 2024-10-12 13:45 | Outpatient (RCR) | payer MEDICARE, MEDICAID, SELFPAY ==
[2024-10-01 12:09] VITALS: BP 111/66; PULSE 79; RESP 16; TEMP 36.6; O2SAT 96
[2024-10-01] MEDS: Rabies Vaccine (PCEC)/PF 1 ML VIAL IM (12:10)
[2024-10-05 13:54] VITALS: BP 129/59; PULSE 74; RESP 16; TEMP 36.7; O2SAT 98
[2024-10-05] MEDS: Rabies Vaccine (PCEC)/PF 1 ML VIAL IM (13:56)
[2024-10-12 14:48] VITALS: BP 119/72; PULSE 87; RESP 17; TEMP 36.1; O2SAT 97
[2024-10-12] MEDS: Rabies Vaccine (PCEC)/PF 1 ML VIAL IM (14:49)
== END 2024-10-12 14:52 | disposition home or self-care (01) ==
LOC: HO.INF 13:45
PROVIDERS: Visit Provider Physician Assistant Medical
DX: Z20.3 Contact with and (suspected) exposure to rabies (principal)
CPT/HCPCS: 90471; 90675